=== PATIENT | male | born 1960 | race Caucasian/White ===

== ENCOUNTER 2025-01-20 09:41 | Outpatient (CLI) | payer MEDICARE, OTHER, SELFPAY ==
[2025-01-20 10:13] LABS: Hematocrit 41.3 % (37.0-46.0); Hemoglobin 13.5 g/dL (12.4-15.3); Immature Granulocyte Percent A 0.3 % (0.0-0.0); Lymphocytes Absolute Auto 1.67 K/mm3 (1.10-4.50); Mean Corpuscular HGB Conc 32.7 g/dL (32-36); Mean Corpuscular Hemoglobin 31.8 pg (27.0-31.0); Mean Corpuscular Volume 97.4 fL (78.0-102.0); Nucleated Red Blood Cells Absolute Auto 0.00 K/mm3 (0.00-0.00); Nucleated Red Blood Cells Perc 0.0 % (0-0.0); Platelet Count Result 221 K/mm3 (150-420); Red Blood Count 4.24 M/mm3 (4.70-6.10); White Blood Count 5.8 K/mm3 (4.8-10.8)
[2025-01-20 10:22] LABS: Alanine Aminotransferase 15 U/L (6-50); Albumin Level 4.3 g/dL (3.5-5.1); Alkaline Phosphatase 58 U/L (38-126); Anion Gap 10 mmol/L (4-12); Aspartate Amino Transferase 22 U/L (17-59); Bilirubin,Total 0.5 mg/dL (0.2-1.3); Blood Urea Nitrogen 27 mg/dL (9-20); Calcium 9.5 mg/dL (8.4-10.2); Carbon Dioxide 26 mmol/L (22-30); Chloride 102 mmol/L (98-107); Estimated Glomerular Filt Rate > 60; Glucose 167 mg/dL (65-110); Magnesium 2.0 mg/dL (1.6-2.3); Osmolality Calculated 295 mOsm/kg (285-295); Potassium 4.7 mmol/L (3.4-5.0); Sodium 138 mmol/L (137-145); Total Protein 6.9 g/dL (6.3-8.2)
[2025-01-20 10:24] VITALS: BP 129/79; PULSE 80; RESP 14; TEMP 36.8; O2SAT 98; BMI 22.6
[2025-01-20] MEDS: PEMBROLIZUMAB 200 MG in SODIUM CHLORIDE 0.9% IV 92 ML IVPB (10:45)
[2025-01-20] MEDS: HEPARIN SODIUM LOCK FLUSH 500 UNITS/5 ML SYRINGE IV PUSH (11:18)
[2025-01-20 11:34] VITALS: BP 134/78; PULSE 78; RESP 16; O2SAT 97
--- NOTE | 2025-01-20 11:35 | PC.NURSE ---
Tolerated pembrolizumab infusion well. SEE MAR and patient care notes.
== END 2025-01-20 09:42 | disposition home or self-care (01) ==
PROVIDERS: PCP Family Medicine; Visit Provider Internal Medicine Hematology & Oncology
DX: Z51.11 Encounter for antineoplastic chemotherapy (principal); C13.9 Malignant neoplasm of hypopharynx, unspecified; C32.3 Malignant neoplasm of laryngeal cartilage
CPT/HCPCS: 36415; 36591; 80053; 83735; 85025; 96413; J9271

== ENCOUNTER 2025-01-25 15:47 | Outpatient (CLI) | payer MEDICARE, OTHER, SELFPAY ==
[2025-01-25 16:11] LABS: Hematocrit 40.7 % (37.0-46.0); Hemoglobin 13.3 g/dL (12.4-15.3); Mean Corpuscular HGB Conc 32.7 g/dL (32-36); Mean Corpuscular Hemoglobin 32.1 pg (27.0-31.0); Mean Corpuscular Volume 98.3 fL (78.0-102.0); Platelet Count Result 221 K/mm3 (150-420); Red Blood Count 4.14 M/mm3 (4.70-6.10); White Blood Count 8.2 K/mm3 (4.8-10.8)
[2025-01-25 16:33] LABS: Alanine Aminotransferase 13 U/L (6-50); Albumin Level 4.1 g/dL (3.5-5.1); Alkaline Phosphatase 63 U/L (38-126); Anion Gap 7 mmol/L (4-12); Aspartate Amino Transferase 18 U/L (17-59); Bilirubin,Total 0.5 mg/dL (0.2-1.3); Blood Urea Nitrogen 30 mg/dL (9-20); Calcium 9.5 mg/dL (8.4-10.2); Carbon Dioxide 30 mmol/L (22-30); Chloride 102 mmol/L (98-107); Estimated Glomerular Filt Rate > 60; Glucose 258 mg/dL (65-110); Magnesium 2.1 mg/dL (1.6-2.3); Osmolality Calculated 303 mOsm/kg (285-295); Potassium 5.7 mmol/L (3.4-5.0); Sodium 139 mmol/L (137-145); Total Protein 7.1 g/dL (6.3-8.2)
--- OUTSIDE RECORDS SUMMARY | 2025-01-25 16:47 | XMS_ITS | Encounter Summary ---
Author Organization [facility] [place] Address [facility] [place] [address] Care Team Providers Care Gas Examiner Name Role Phone Trevin Hobbs MD Primary Care Provider [phone] Sumit Suárez MD Primary Care Provider Jessica Wong MD Unavailable Encounter Details Date Type Department Care Team (Late st Contact Info) Description 07/26/2017 Abstract [facility] CONVERSION [address] [place] [address] , Generic Conversion, Social History Tobacco Use Types Packs/Day Years Used Date Smoking Tobacco: Never Assessed Sex and Gender Information Value Date Recorded Sex Assigned at Male 11/16/2024 7:21 AM CDT Legal Sex Male 8:30 PM CDT Gender Identity Not on file Sexual Orientation Not on file documented as of this encounter Plan of Treatment Not on file documented as of this encounter Visit Diagnoses Not on filedocumented in this encounter Additional Health Concerns Infection Onset Date Last Indicated Resolved Time COVID-19 Rule Out 07/23/2021 07/23/2021 07/23/2021 10:52 PM CDT COVID-19 Confirmed 07/23/2021 07/23/2021 12:33 AM CDT documented as of this encounter Care Teams Gas Examiner Relationship Specialty Start Date End Date Trevin Hobbs MD [address] [place] [address] PCP - General FAMILY PRACTICE 02/27/19 04/08/21 Sumit Suárez MD [address] [place] [address] PCP - General FAMILY PRACTICE 04/09/21 Jessica Wong MD [address] [place] [address] Consulting Physician CARDIOVASCULAR DISEASE 12/01/24 documented as of this encounter
--- OUTSIDE RECORDS SUMMARY | 2025-01-25 16:47 | XMS_ITS | Encounter Summary ---
Author Organization [facility] Address [facility] [place] [address] Care Team Providers Care Measurer Machine Name Role Phone Trevin Hobbs MD Primary Care Provider [phone] Sumit Suárez MD Primary Care Provider Jessica Wong MD Unavailable Encounter Details Date Type Department Care Team (Late st Contact Info) Description 10/17/2018 Abstract [facility] CONVERSION [address] [place] [address] , Generic Conversion, Social History Tobacco Use [...] documented as of this encounter Care Teams Measurer Machine Relationship Specialty Start Date End Date Trevin Hobbs MD [address] [place] [address] PCP - General FAMILY PRACTICE 02/27/19 04/08/21 Sumit Suárez MD [address] [place] [address] PCP - General FAMILY PRACTICE 04/09/21 Jessica Wong MD [address] [place] [address] Consulting Physician CARDIOVASCULAR DISEASE 12/01/24 documented as of this encounter
--- OUTSIDE RECORDS SUMMARY | 2025-01-25 16:47 | XMS_ITS | Clinical Summary ---
Author Organization [facility] Address [address] [place] [address] Care Team Providers Care Golf Cart Attendant Name Role Phone Sumit Suárez MD Primary Care Provider Jessica Wong MD Unavailable Allergies Active Allergy Reactions Criticality Noted Date Comments Penicillins Hives 02/27/2019 Medications * This document contains information received from the source organization and may not represent a complete record from that organization. metFORMIN (GLUCOPHAGE) 500 MG tablet Take 2 tablets (1,000 mg total) by mouth 2 (two) times daily with meals. Active Insulin Syringe-Needle U-100 (INSULIN SYRINGE .3CC/29GX1/2) 29G X 1/2 0.3 ML Misc Use as directed 100 each 9 Active albuterol sulfate HFA 108 (90 Base) MCG/ACT inhaler Inhale 2 puffs into the lungs every 8 (eight) hours as needed for Wheezing or Shortness of breath. Active empagliflozin (JARDIANCE) 25 MG tablet Take 1 tablet (25 mg total) by mouth daily. Active omeprazole (PRILOSEC) 40 MG capsule Take 1 capsule (40 mg total) by mouth daily. Active famotidine (PEPCID) 40 MG tablet Take 1 tablet (40 mg total) by mouth daily. Active Active Problems Problem Noted Date Diagnosed Date Unintended weight loss 02/28/2019 Hyperglycemia due to type 2 diabetes mellitus ([facility]) 02/27/2019 CAP (community acquired pneumonia) 02/27/2019 COPD (chronic obstructive pu lmonary disease) ([facility]) 02/27/2019 Hyperlipemia 02/27/2019 Encounters Date Type Department Care Team Description 01/07/2025 11:28 AM CDT - 01/07/2025 11:59 PM CDT Hospital Encounter [facility] PET [address] [place] [address] Yaakov Frazier MD Discharge Disposition: Home or Self Care (Routine Discharge) 01/07/2025 Travel 12/03/2024 Telephone [facility] [address] [place] [address] Jessica Wong MD Question 12/02/2024 12:30 PM CDT Office Visit [facility] [address] Jessica Wong MD Heart Problem 12/02/2024 Scan [facility] [address] [place] [address] Scanned, Doc Pccl 12/01/2024 Travel 11/30/2024 Orders Only [facility] [address] [place] [address] Jessica Wong MD 11/24/2024 12:30 PM CDT - 11/24/2024 11:59 PM CDT Hospital Encounter [facility] [place] [address] [place] [address] Lg Sargent MD Discharge Disposition: Home or Self Care (Routine Discharge) 11/24/2024 12:23 PM CDT - 11/24/2024 12:29 PM CDT Hospital Encounter [facility] [address] [place] [address] Lg Sargent MD Discharge Disposition: Home or Self Care (Routine Discharge) 11/24/2024 Orders Only [facility] [address] [place] [address] Jessica Wong MD 11/24/2024 Travel 11/23/2024 8:12 AM CDT - 11/23/2024 11:59 PM CDT Hospital Encounter [facility] [address] [place] [address] Yaakov Frazier MD Discharge Disposition: Home or Self Care (Routine Discharge) 11/22/2024 1:30 PM CDT - 11/22/2024 11:59 PM CDT Hospital Encounter [address] [address] Lg Sargent MD Discharge Disposition: Home or Self Care (Routine Discharge) 11/22/2024 Travel 11/16/2024 7:25 AM CDT - 11/16/2024 11:59 PM CDT Hospital Encounter [facility] [address] [place] [address] Yaakov Frazier MD Discharge Disposition: Home or Self Care (Routine Discharge) 11/16/2024 Orders Only [facility] [address] [place] [address] Yaakov Frazier MD 11/16/2024 Travel 11/11/2024 10:45 AM CDT - 11/11/2024 11:59 PM CDT Hospital Encounter [address] [address] Lg Sargent MD Discharge Disposition: Home or Self Care (Routine Discharge) 11/11/2024 Travel 11/08/2024 Abstract [facility] [address] [place] [address] Abstract, Doc Pccl 11/02/2024 Telephone [facility] [address] [place] [address] Jessiac Wong MD Surgical Clearance 10/27/2024 Scan [facility] [address] [place] [address] Scanned, Doc Pccl 10/27/2024 Scan [facility] [address] [place] [address] Scanned, Doc Pccl ECG (SCAN) from Last 3 Months Family History Medical History Relation Comments Asthma Brother CHF Father COPD Father Diabetes Father Diabetes Mother Relation Status Comments Brother Father Mother Social History Tobacco Use Types Packs/Day Years Used Date Smoking Tobacco: Every Day Cigarettes Smokeless Tobacco: Never Tobacco Cessation:Ready to Q uit: Not Asked; Counseling Given: Not Answered Alcohol Use Standard Drinks/Week Comments No 0 (1 standard drink = 0.6 oz pur e alcohol) AUDIT-C Answer Date Recorded Frequency of Alcohol Consumption Never 02/27/2019 Average Number of Drinks Not on file 019 Frequency of Binge Drinking Not on file 02/09 Sex and Gender Information Value Date Recorded Sex Assigned at Male 11/16/2024 7:21 AM CDT Legal Sex Male 8:30 PM CDT Gender Identity Not on file Sexual Orientation Not on file Last Filed Vital Signs Vital Sign Reading Time Taken Comments Blood Pressure 112/60 12/02/2024 1:52 PM CDT Pulse 83 12/02/2024 1:52 PM CDT Temperature 36.6 C (97.9 F) 02/28/2019 5:15 AM CDT Respiratory Rate 16 12/02/2024 1:52 PM CDT Oxygen Saturation 96% 12/02/2024 1:52 PM CDT Inhaled Oxygen Concentration - - Weight 62.8 kg (138 lb 6.4 oz) 12/02/2024 1:52 P M CDT Height 165.1 cm (5' 5) 12/02/2024 1:52 PM CDT Body Mass Index 23.03 12/02/2024 1:52 PM CDT Plan of Treatment Health Maintenance Due Date Last Done Comments Colorectal Cancer Screening Colonoscopy (10 Years) 1958 Kidney Health Evaluation 1958 Lipid Panel 1958 COVID-19 Vaccine (#1) 1963 Diabetes: Retinopathy Eye Exam 1976 Hepatitis C 1976 DTaP, Tdap and Td Vaccines (1 - Tdap) 1977 Pneumococcal Vaccine: 50+ Years (1 of 2 - PCV) 1977 Zoster Vaccines (1 of 2) 1977 RSV Immunization or 60+ Years (1 - Risk 60-74 years 1-dose series) 2018 Annual Medicare Wellness Visit 2023 Hemoglobin A1C 02/16/2025 11/16/2024, 02/28/2019 AAA SCREENING Completed 01/07/2025, 05/13, 05/09/2021, Additional history exists Meningococcal B Vaccine Aged Out No l onger eligible based on patient's age to complete this topic Meningococcal Vaccine Aged Out No ashanti halima eligible based on patient's age to complete this topic RSV Immunizations Under 20 Months Aged Out No longer eligible based on patient's age to complete this topic Procedures Procedure Name Priority Date/Time Associated Diagnosis Comments PET EYE TO THIGH [id number] PATIENCE 01/07/2025 1:49 PM CDT 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) ELECTROCARDIOGRAM, TRACING Routine 12/02/2024 Essential (primary) hypertension CT RAD THRPY PLAN W CON Routine 11/24/2024 1:03 PM CDT Cancer of hypopharynx (CMS/HCC HHS/HCC) CT SOFT TISSUE NECK W CON PATIENCE 11/23/2024 8:31 AM CDT 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) CORTISOL, TOTAL Routine 11/16/2024 4:35 PM CDT 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) MAGNESIUM Routine 11/16/2024 7:42 AM CDT 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) Thyroid disorder screen COMPREHENSIVE METABOLIC PANEL Routine 11/16/2024 7:42 AM CDT 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) Thyroid disorder screen CBC W/DIFF AUTOMATED Routine 11/16/2024 7:42 AM CDT 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) Thyroid disorder screen TSH W/REFLEX Routine 11/16/2024 7:42 AM CDT 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) Thyroid disorder screen HEMOGLOBIN, GLYCOSYLATED Routine 11/16/2024 7:42 AM CDT 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 Moderate uptake at mass centered in the left arytenoid cartilage, in keeping with reported history of primary malignancy. 2. Single prominent left level 2 cervical lymph node with mild uptake, favored to represent a site of ipsilateral radha metastatic disease. 3. No evidence of distant FDG avid metastatic disease. Ordered By: YAAKOV FRAZIER Interpreted By: Zbigniew Ferrell MD, 01/07/2025 2:33 PM Narrative 01/07/2025 3:[address] PM [address]T [address] [address] EXAMINATION: FDG PET/CT HISTORY: Reason for examination (per EHR order): malignant neoplasm of arytenoid cartilage. 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 Initial staging. Initial treatment strategy. TECHNIQUE: The patient's fasting blood glucose was 229 mg/dL. Approximately 63 minutes after the uneventful intravenous administration of 12.2 mCi F-18 Fluorodeoxyglucose (FDG) at the right antecubital fossa, computed tomography (CT) was performed for attenuation correction and anatomic localization. CT is not of diagnostic quality and was performed from the skull base to mid-thigh. Positron emission tomography (PET) was then performed over the same range. Fusion of PET and CT images was also performed. COMPARISON: Outside DOTATATE PET/CT 10/11/2024. CT neck soft tissue 11/23/2024. FINDINGS: Head and Neck: Moderate uptake with SUVmax 8.0 corresponding to 2 cm mass centered in the left arytenoid cartilage. Mild uptake with SUVmax 4.2 at 1.5 cm left level 2 cervical lymph node (fused axial series 606 image 159). No other abnormal uptake in the visualized head or neck. Carotid calcifications. Lungs: No abnormal FDG uptake. Pulmonary emphysema. Pleura: No abnormal FDG uptake. Mediastinum: No abnormal FDG uptake. Calcifications of the thoracic aorta, coronary arteries, and aortic valve. Thoracic Lymph Nodes: No abnormal FDG uptake. Chest Wall and Breasts: No abnormal FDG uptake. Right-sided chest port catheter terminates at the superior cavoatrial junction. Liver: No abnormal FDG uptake. Biliary System: No abnormal FDG uptake. Pancreas: No abnormal FDG uptake. Spleen: No abnormal FDG uptake. Adrenal Glands: No abnormal FDG uptake. Kidneys: No abnormal FDG uptake. Bowel: No abnormal FDG uptake. Mesentery, Omentum, and Peritoneum: No abnormal FDG uptake. Pelvic Organs: No abnormal FDG uptake. Enlarged prostate gland. Abdominopelvic Lymph Nodes: No abnormal FDG uptake. Vasculature: No abnormal FDG uptake. Atherosclerotic calcifications. Remaining Bones and Soft Tissues: No abnormal FDG uptake. Procedure Note Zbigniew Ferrell MD - 01/07/[address] [address] EXAMINATION: FDG PET/CT HISTORY: Reason for examination (per EHR order): malignant neoplasm ofarytenoid cartilage. Additional clinical information obtained from the EHR: 64 years Male withmalignant neoplasm of the arytenoid cartilage. Initial staging. Initialtreatment strategy. TECHNIQUE: The patient's fasting blood glucose was 229 mg/dL.Approximately 63 minutes after the uneventful intravenous administrationof 12.2 mCi F-18 Fluorodeoxyglucose (FDG) at the right antecubital fossa,computed tomography (CT) was performed for attenuation correction andanatomic localization. CT is not of diagnostic quality and was performedfrom the skull base to mid-thigh. Positron emission tomography (PET) wasthen performed over the same range. Fusion of PET and CT images was alsoperformed. COMPARISON: Outside DOTATATE PET/CT 10/11/2024. CT neck soft tissue11/23/2024. FINDINGS: Head and Neck: Moderate uptake with SUVmax 8.0 corresponding to 2 cm mass centered in theleft arytenoid cartilage. Mild uptake with SUVmax 4.2 at 1.5 cm left level 2 cervical lymph node(fused axial series 606 image 159). No other abnormal uptake in the visualized head or neck. Carotid calcifications. Lungs: No abnormal FDG uptake. Pulmonary emphysema. Pleura: No abnormal FDG uptake. Mediastinum: No abnormal FDG uptake. Calcifications of the thoracic aorta,coronary arteries, and aortic valve. Thoracic Lymph Nodes: No abnormal FDG uptake. Chest Wall and Breasts: No abnormal FDG uptake. Right-sided chest portcatheter terminates at the superior cavoatrial junction. Liver: No abnormal FDG uptake. Biliary System: No abnormal FDG uptake. Pancreas: No abnormal FDG uptake. Spleen: No abnormal FDG uptake. Adrenal Glands: No abnormal FDG uptake. Kidneys: No abnormal FDG uptake. Bowel: No abnormal FDG uptake. Mesentery, Omentum, and Peritoneum: No abnormal FDG uptake. Pelvic Organs: No abnormal FDG uptake. Enlarged prostate gland. Abdominopelvic Lymph Nodes: No abnormal FDG uptake. Vasculature: No abnormal FDG uptake. Atherosclerotic calcifications. Remaining Bones and Soft Tissues: No abnormal FDG uptake. IMPRESSION: 1. Moderate uptake at mass centered in the left arytenoid cartilage, inkeeping with reported history of primary malignancy. 2. Single prominent left level 2 cervical lymph node with mild uptake,favored to represent a site of ipsilateral radha metastatic disease. 3. No evidence of distant FDG avid metastatic disease. Ordered By: YAAKOV FRAZIER Interpreted By: Zbigniew Ferrell MD, 01/07/2025 2:33 PM us Yaakov Frazier MD PET Final Result * [facility] - ELECTROCARDIOGRAM, TRACING (12/02/2024) Jessica Wong MD PROCEDURES-UNRESULTED Final Resu lt * CT RAD THRPY PLAN W CON (11/24/2024 1:03 PM CDT) Anatomical Region Laterality Modality Undefined Computed Tomogra phy 11/24/2024 1:52 PM CDT Impressions 11/24/2024 1:58 PM CDT IMPRESSION: Radiation therapy planning CT scan as described. Ordered By: LG SARGENT Interpreted By: Massimo Ellsworth MD, 11/24/2024 1:52 PM Narrative 11/24/2024 1:[address]T [address] [place] [address] Examination: Radiation therapy planning CT scan. Exam time: 1303 hours. Clinical history: Head and neck cancer. Comparison: CT of the neck, 11/23/2024; PET/CT scan ([facility]), 10/11/2024. Technique: Postcontrast axial scans from the mid chest through the vertex with fiducial markers in place. A dose lowering technique was used for this procedure, which may include, but is not limited to, dose reduction techniques, automated exposure control, the use of iterative reconstruction and ALARA/Image Gently techniques. Findings: Enhancing left-sided supraglottic mass is again evident reflecting the known malignancy (image 70/152 for example). Left level II lymphadenopathy is again evident as well (image 83/152 for example). No new lymphadenopathy is identified. There is no abnormal intracranial enhancement. Atherosclerotic calcification in the carotid distributions bilaterally is again evident. Calcific coronary artery disease is noted. The visualized lungs are clear. No suspicious bony lesion is identified. Procedure Note Massimo Ellsworth MD - 11/24/2024 [place] [id number] [facility] [place] [address] Examination: Radiation therapy planning CT scan. Exam time: 1303 hours. Clinical history: Head and neck cancer. Comparison: CT of the neck, 11/23/2024; PET/CT scan ([facility] 10/11/2024. Technique: Postcontrast axial scans from the mid chest through the vertexwith fiducial markers in place. A dose lowering technique was used forthis procedure, which may include, but is not limited to, dose reductiontechniques, automated exposure control, the use of iterativereconstruction and ALARA/Image Gently techniques. Findings: Enhancing left-sided supraglottic mass is again evidentreflecting the known malignancy (image 70/152 for example). Left level IIlymphadenopathy is again evident as well (image 83/152 for example). Nonew lymphadenopathy is identified. There is no abnormal intracranialenhancement. Atherosclerotic calcification in the carotid distributionsbilaterally is again evident. Calcific coronary artery disease is noted.The visualized lungs are clear. No suspicious bony lesion is identified. IMPRESSION: Radiation therapy planning CT scan as described. Ordered By: LG SARGENT Interpreted By: Massimo Ellsworth MD, 11/24/2024 1:52 PM us Lg Sargent MD CT Final Result * CT SOFT TISSUE NECK W CON (11/23/2024 8:31 AM CDT) Anatomical Region Laterality Modality Neck Computed Tomogra phy 11/23/2024 9:27 AM CDT Impressions 11/23/2024 9:42 AM CDT IMPRESSION: 1. 2 cm irregular enhancing lesion within the left supraglottic region, compatible with reported carcinoma. The lesion appears to extend into the left thyroid cartilage. No extension to the right of midline or into the infraglottic region. 2. Nonspecific 0.9 cm enhancing cystic lesion along the dorsal lateral wall of the oropharynx abutting the right palatine tonsil, unchanged compared to the prior PET CT of 10/11/2024, suspicious for a mucous retention cyst. 3. Enlarged cervical lymph node on the left at level 2, compatible with metastasis. No necrotic cervical lymph nodes or right-sided the lymphadenopathy. 4. Carotid and coronary artery calcification. Referred By: YAAKOV FRAZIER Interpreted By: Augusto Soto MD, 11/23/2024 9:27 AM Narrative 11/23/2024 9:[address] AM CDT [address] [place] [address] EXAMINATION:Neck CT with contrast 11/23/2024 INDICATION:Squamous cell carcinoma of hypopharynx TECHNIQUE: Axial CT images of the neck were acquired following administration of 90 mL Isovue-370 contrast intravenously. Sagittal coronal reformats were constructed. Radiation dose reduction techniques were used. COMPARISON: PET CT 10/29/2024 FINDINGS:Partially visualized intracranial contents are unremarkable. The orbits and globes are unremarkable. The paranasal sinuses and mastoid air cells are clear. No acute osseous abnormality. Moderate multilevel degenerative changes are noted throughout the cervical spine. The parotid and submandibular glands are unremarkable. The thyroid gland is unremarkable The oral cavity and tongue are unremarkable. There is a 0.9 cm cystic lesion within the dorsal right lumen of the oral pharynx along the superior margin the right palatine tonsil. The nasopharynx, oropharynx and hypopharynx are otherwise unremarkable. No prevertebral edema or retropharyngeal fluid collection. The vallecula epiglottis and piriform sinuses are unremarkable. There is a 2.0 x 2.0 x 2.0 cm irregular enhancing mucosal lesion within the left supraglottic region, unchanged compared to the prior PET/CT. The lesion appears to invade the left thyroid cartilage but does not extend superficial to the thyroid cartilage. No infraglottic extension appreciated. No extension to the right of midline. Calcified plaque noted near the carotid bifurcations and within the aortic arch. There is extensive calcified plaque also noted throughout the coronary arteries. The internal jugular veins are well-opacified. There is enlarged cervical lymph node on the left at the L2 measuring up to 1.2 cm in the short axis, unchanged. There is mild emphysema within the right upper lobe of the lung. Procedure Note Augusto Soto MD - 11/23/2024 [place] [address] [facility] [place] [address] EXAMINATION:Neck CT with contrast 11/23/2024 INDICATION:Squamous cell carcinoma of hypopharynx TECHNIQUE: Axial CT images of the neck were acquired followingadministration of 90 mL Isovue-370 contrast intravenously. Sagittalcoronal reformats were constructed. Radiation dose reduction techniqueswere used. COMPARISON: PET CT 10/29/2024 FINDINGS:Partially visualized intracranial contents are unremarkable. Theorbits and globes are unremarkable. The paranasal sinuses and mastoid aircells are clear. No acute osseous abnormality. Moderate multileveldegenerative changes are noted throughout the cervical spine. The parotid and submandibular glands are unremarkable. The thyroid glandis unremarkable The oral cavity and tongue are unremarkable. There is a 0.9 cm cysticlesion within the dorsal right lumen of the oral pharynx along thesuperior margin the right palatine tonsil. The nasopharynx, oropharynxand hypopharynx are otherwise unremarkable. No prevertebral edema orretropharyngeal fluid collection. The vallecula epiglottis and piriformsinuses are unremarkable. There is a 2.0 x 2.0 x 2.0 cm irregular enhancing mucosal lesion withinthe left supraglottic region, unchanged compared to the prior PET/CT. Thelesion appears to invade the left thyroid cartilage but does not extendsuperficial to the thyroid cartilage. No infraglottic extensionappreciated. No extension to the right of midline. Calcified plaque noted near the carotid bifurcations and within the aorticarch. There is extensive calcified plaque also noted throughout thecoronary arteries. The internal jugular veins are well-opacified. There is enlarged cervicallymph node on the left at the L2 measuring up to 1.2 cm in the short axis,unchanged. There is mild emphysema within the right upper lobe of thelung. IMPRESSION: 1. 2 cm irregular enhancing lesion within the left supraglottic region,compatible with reported carcinoma. The lesion appears to extend into theleft thyroid cartilage. No extension to the right of midline or into theinfraglottic region. 2. Nonspecific 0.9 cm enhancing cystic lesion along the dorsal lateralwall of the oropharynx abutting the right palatine tonsil, unchangedcompared to the prior PET CT of 10/11/2024, suspicious for a mucousretention cyst. 3. Enlarged cervical lymph node on the left at level 2, compatible withmetastasis. No necrotic cervical lymph nodes or right-sided thelymphadenopathy. 4. Carotid and coronary artery calcification. Referred By: YAAKOV FRAZIER Interpreted By: Augusto Soto MD, 11/23/2024 9:27 AM Yaakov Frazier MD CT Final Result * CORTISOL, TOTAL (11/16/2024 4:35 PM CDT) Only the most recent of2 resultswithin the time period is included. CORTISOL 7.9 mcg/dL 11/17/2024 12:18 AM CDT [facility] Comment: A.M. SPECIMENS: 5.3 TO 22.5 mcg/dL P.M. SPECIMENS: 3.4 TO 16.8 mcg/dL ASSAY PERFORMED BY CHEMILUMINESCENCE METHODOLOGY USING Blue Security[employer] XPT REAGENT. PATIENT RESULTS DETERMINED BY ASSAYS USING DIFFERENT MANUFACTURERS FOR METHODS MAY NOT BE COMPARABLE. 11/16/2024 4:35 PM CDT Yaakov Frazier MD LABORATORY Final Result Performing Organization Address City/[facility] Co de Phone Number [facility] [address] [place] [address], [phone] * TSH W/REFLEX (11/16/2024 7:42 AM CDT) TSH 2.280 0.358 - 3.740 uIU/ML 11/16/2024 8:23 AM CDT [facility] Comment: FREE T4 NOT INDICATED ASSAY PERFORMED BY CHEMILUMINESCENT IMMUNOASSAY METHODOLOGY USING [employer] DIMENSION REAGENT. PATIENT RESULTS DETERMINED BY ASSAYS FROM DIFFERENT MANUFACTURERS AND/OR BY DIFFERENT METHODS MAY NOT BE COMPARABLE. 11/16/2024 7:42 AM CDT Yaakov Frazier MD LABORATORY Final Result Performing Organization Address City/[facility]/ZIP Co de Phone Number [facility] [address] [place] [address], [place] [phone] * (ABNORMAL) HEMOGLOBIN, GLYCOSYLATED (11/16/2024 7:42 AM CDT) HGB A1C 9.0(H) <5.7 % 11/16/2024 1:28 PM CDT [facility] ESTIMATED AVG GLUCOSE 212(H) 74 - 114 MG/DL 11/16/2024 1:28 PM CDT [facility] 11/16/2024 7:42 AM CDT us Yaakov Frazier MD LABORATORY Final Result [facility] [address] [place] [address], [place] [phone] * (ABNORMAL) COMPREHENSIVE METABOLIC PANEL (11/16/2024 7:42 AM CDT) Only the most recent of2 resultswithin the time period is included. SODIUM S/P/B 137 136 - 145 MMOL/L 11/16/2024 8:23 AM CDT [facility] POTASSIUM S/P/B 5.1 3.5 - 5.1 MMOL/L 11/16/2024 8:23 AM CDT [facility] CHLORIDE S/P/B 101 98 - 107 MMOL/L 11/16/2024 8:23 AM CDT [facility] [facility] CO2 27.9 21.0 - 32.0 MMOL/L 11/16/2024 8:23 AM CDT [facility] GLUCOSE 224(H) 70 - 99 MG/DL 11/16/2024 8:23 AM CDT [facility] Comment: FASTING GLUCOSE 100 TO 125 MG/DL IS CONSISTENT WITH IMPAIRED FASTING GLUCOSE. FASTING GLUCOSE >125 MG/DL IS CONSISTENT WITH DIABETES. RANDOM GLUCOSE >200 MG/DL WITH HYPERGLYCEMIC SYMPTOMS IS CONSISTENT WITH DIABETES. PER ADA GUIDELINES BUN 30(H) 6 - 24 MG/DL 11/16/2024 8:23 AM CDT [facility] CREATININE S/P/B 0.95 0.70 - 1.30 MG/DL 11/16/2024 8:23 AM T [facility] CALCIUM S/P/B 9.0 8.4 - 10.5 MG/DL 11/16/2024 8:23 AM T [facility] BILIRUBIN TOTAL S/P/B 0.3 0.2 - 1.0 MG/DL 11/16/2024 8:23 AM T [facility] Comment: THIS ASSAY IS NOT RECOMMENDED FOR PATIENTS UNDERGOING TREATMENT WITH ELTROMBOPAG DUE TO THE POTENTIAL FOR FALSELY ELEVATED RESULTS. ALKALINE PHOSPHATASE S/P/B 74 45 - 115 U/L 11/16/2024 8:23 AM T [facility] AST 14(L) 15 - 37 U/L 11/16/2024 8:23 AM [facility] ALT 16 16 - 63 U/L 11/16/2024 8:23 AM T [facility] TOTAL PROTEIN S/P/B 7.2 6.4 - 8.2 G/DL 11/16/2024 8:23 AM [facility] ALBUMIN S/P/B 3.6 3.4 - 5.0 G/DL 11/16/2024 8:23 AM [facility] ANION GAP 8.1 5.0 - 15.0 MMOL/L 11/16/2024 8:23 AM [facility] OSMOLALITY (CALC) 297 MOSM/KG 025 8:23 AM [facility] Comment:REFERENCE RANGE NOT ESTABLISHED GFR ESTIMATE 88(L) >89 ML/MIN/1. 73 M2 11/16/2024 8:23 AM T [facility] GFR NOTES GFR REFERENCE S: 11/16/2024 8:23 AM [facility] Comment: THE ESTIMATED GFR IS CALCULATED USING THE 2020 CKD-EPI EQUATION. THE FOLLOWING CATEGORIES FOR GRADING RENAL FUNCTION ARE RECOMMENDED BY THE INTERNATIONAL SOCIETY OF NEPHROLOGY (KDIGO 2012 CLINICAL PRACTICE GUIDELINE). G1,NORMAL OR HIGH: >89 ml/min/1.73 m2 G2,MILDLY DECREASED: 60-89 ml/min/1.73 m2 G3A,MILDLY TO MODERATELY DECREASED: 45-59 ml/min/1.73 m2 G3B,MODERATELY TO SEVERELY DECREASED: 30-44 ml/min/1.73 m2 G4,SEVERELY DECREASED: 15-29 ml/min/1.73 m2 G5,KIDNEY FAILURE: <15 ml/min/1.73 m2 11/16/2024 7:42 AM CDT Yaakov Frazier MD LABORATORY Final Result [facility] [address] [employer] [place] [address], * (ABNORMAL) CBC W/DIFF AUTOMATED (11/16/2024 7:42 AM CDT) WBC 7.61 4.00 - 10.80 x10'3/uL 11/16/2024 7:52 AM CDT [facility] RBC 4.78 4.50 - 6.10 x10'6/uL 11/16/2024 7:52 AM CDT [facility] HGB 15.3 13.0 - 18.0 G/DL 11/16/2024 7:52 AM CDT [facility] HCT 45.4 37.0 - 52.0 % 11/16/2024 7:52 AM CDT [facility] MCV 95.0 78.0 - 100.0 FL 11/16/2024 7:52 AM CDT [facility] MCH 32.0(H) 27.0 - 31.0 PG 11/16/2024 7:52 AM CDT [facility] MCHC 33.7 33.0 - 36.0 G/DL 11/16/2024 7:52 AM CDT [facility] RDW 14.2 11.5 - 14.5 % 11/16/2024 7:52 AM CDT [facility] PLT 247 150 - 350 x10'3/uL 11/16/2024 7:52 AM CDT [facility] MPV 9.9 7.4 - 10.4 FL 11/16/2024 7:52 AM CDT [facility] CBC COMMENT NORMAL REFERENCE RANGE NOT ESTABLISHED FOR THE PROPORTIONAL LEUKOCYTE DIFFERENTIAL. 11/16/2024 7:52 AM CDT [facility] NEUTROPHILS % 61.7 % 11/16/2024 7:52 AM CDT [facility] LYMPHOCYTES % 22.6 % 11/16/2024 7:52 AM CDT [facility] MONOCYTES % 11.0 % 11/16/2024 7:52 AM CDT [facility] EOSINOPHILS % 1.8 % 11/16/2024 7:52 AM CDT [facility] BASOPHILS % 2.0 % 11/16/2024 7:52 AM CDT [facility] IMMATURE GRANS % 0.9 % 11/17/19 7:52 AM CDT [facility] NRBC % 0.0 % 11/16/2024 7:52 AM CDT [facility] ABS. NEUTROPHILS 4.69 1.60 - 8.30 x10'3/uL 11/16/2024 7:52 AM CDT [facility] ABS. LYMPHOCYTES 1.72 0.80 - 4.70 x10'3/uL 11/16/2024 7:52 AM CDT [facility] ABS. MONOCYTES 0.84 0.00 - 1.50 x10'3/uL 11/16/2024 7:52 AM CDT [facility] ABS. EOSINOPHILS 0.14 0.00 - 0.40 x10'3/uL 11/16/2024 7:52 AM CDT [facility] ABS. BASOPHILS 0.15 0.00 - 0.20 x10'3/uL 11/16/2024 7:52 AM CDT [facility] ABS. IMMATURE GRANULOCYTES 0.07(H) 0.00 - 0.03 x10'3/uL 11/16/2024 7:52 AM CDT [facility] ABS. NUCLEATED RBC'S 0.00 0.00 - 0.01 x10'3/uL 11/16/2024 7:52 AM CDT [facility] 11/16/2024 7:42 AM CDT Yaakov Frazier MD LABORATORY Final Result Performing Organization Address [facility] Co de Phone Number [facility] [place] [address], * MAGNESIUM (11/16/2024 7:42 AM CDT) MAGNESIUM 2.2 1.8 - 2.4 MG/DL 11/16/2024 8:23 AM CDT [facility] 11/16/2024 7:42 AM CDT Yaakov Frazier MD LABORATORY Final Result Performing Organization Address [facility] Co de Phone Number [facility] [address] [place] [address], * ECG (10/27/2024 12:00 AM CDT) 10/27/2024 us Doc Pccl Scanned SCANNING Final Result Performing Organization Address [facility] Co de Phone Number [facility] * CBC, MANUAL DIFF (10/27/2024) WBC 6.7 HGB 15 HCT 45.9 PLT 212 Narrative Resulting Agency Comment Received from pcp us Default History Genericprovider LABORATORY Final Result from Last 3 Months Insurance [place] [address] MEDICARE Advance Directives * Full Code (Latest Code Status on File) Date Activated Date Inactivated Comments 02/27/2019 4:44 PM 02/28/2019 1:51 PM Care Teams Golf Cart Attendant Relationship Specialty Start Date End Date Sumit Suárez MD [address] [place] [phone] PCP - General FAMILY PRACTICE 04/09/21 Jessica Wong MD [address] [place] [address] Consulting Physician CARDIOVASCULAR DISEASE 12/01/24
== END 2025-01-25 15:48 | disposition home or self-care (01) ==
LOC: CHSLAB 15:50
PROVIDERS: PCP Family Medicine; Visit Provider Internal Medicine Hematology
DX: C13.9 Malignant neoplasm of hypopharynx, unspecified (principal)
CPT/HCPCS: 36415; 80053; 83735; 85027

== ENCOUNTER 2025-01-27 12:09 | Outpatient (CLI) | payer MEDICARE, OTHER, SELFPAY ==
[2025-01-27 12:45] VITALS: BP 100/50; PULSE 72; RESP 14; TEMP 36.7; O2SAT 96; BMI 22.6
[2025-01-27] MEDS: [UNRECOGNIZED DRUG - OTHER] IVPB ×2 (12:45→15:15)
[2025-01-27] MEDS: MAGNESIUM SULFATE IVPB ×2 (12:45→15:15)
[2025-01-27] MEDS: POTASSIUM CHLORIDE IVPB ×2 (12:45→15:15)
[2025-01-27] MEDS: SODIUM CHLORIDE 0.9% IVPB (13:50)
[2025-01-27] MEDS: CISPLATIN IVPB (13:50)
[2025-01-27] MEDS: MANNITOL 20% 62.5 ML, SODIUM CHLORIDE 0.9% IV 100 ML 400 ML IVPB (14:50)
[2025-01-27] MEDS: HEPARIN SODIUM LOCK FLUSH 500 UNITS/5 ML SYRINGE IV PUSH (16:18)
[2025-01-27 16:29] VITALS: BP 129/71; PULSE 80; RESP 14; TEMP 37; O2SAT 97
--- NOTE | 2025-01-27 16:31 | PC.NURSE ---
Patient tolerated cycle 1 day 8 treatment well today. SEE MAR/patient care notes.
== END 2025-01-27 12:10 | disposition home or self-care (01) ==
PROVIDERS: PCP Family Medicine; Visit Provider Internal Medicine Hematology & Oncology
DX: Z51.11 Encounter for antineoplastic chemotherapy (principal); C13.9 Malignant neoplasm of hypopharynx, unspecified; C32.3 Malignant neoplasm of laryngeal cartilage
CPT/HCPCS: 96366; 96367; 96375; 96413; J3475; J3480; J7040; J9060

== ENCOUNTER 2025-02-01 08:16 | Outpatient (CLI) | payer MEDICARE, OTHER, SELFPAY ==
--- OUTSIDE RECORDS SUMMARY | 2025-01-31 15:30 | XMS_ITS | Encounter Summary ---
Author Organization [facility] Address [address] [place] [address] Care Team Providers Care Dobby Looms Pegger Name Role Phone Sumit Suárez MD Primary Care Provider [phone] Jessica Wong MD Unavailable Encounter Details Date Type Department Care Team (Late st Contact Info) Description 01/31/2025 3:30 PM CDT Hospital Encounter [facility] Radiation Oncology - [address] [address] Lg Sargent MD [address] [place] [address] Social History Tobacco Use Types Packs/Day Years Used Date Smoking Tobacco: Every Day Cigarettes Smokeless Tobacco: Never Alcohol Use Standard Drinks/Week Comments No 0 [...] on file documented as of this encounter Functional Status * RETIRED Are you deaf or do you have serious difficulty hearing Answer Date of Assessment Author Status No 02/27/2019 4:57 PM CDT Activ e * RETIRED Are you blind or do you have serious difficulty seeing, even when wearing glasses? Answer Date of Assessment Author Status No 02/27/2019 4:57 PM CDT Activ e * Do you have serious difficulty walking or climbing stairs? Answer Date of Assessment Author Status No 02/27/2019 4:57 PM CDT Saeed Petty RN Active * Do you have difficulty dressing or bathing? Answer Date of Assessment Author Status No 02/27/2019 4:57 PM CDT Saeed Petty RN Active * Because of a physical, mental, or emotional condition, do you have difficulty doing errands alone such as visiting a doctor's office or shopping? Answer Date of Assessment Author Status No 02/27/2019 4:57 PM CDT Saeed Petty RN Active documented as of this encounter Mental Status * Because of a physical, mental, or emotional condition, do you have serious difficulty concentrating, remembering, or making decisions? Answer Entry Date Author Status No 02/27/2019 4:57 PM CDT Saeed Petty RN Active documented in this encounter Plan of Treatment Not on file documented as of this encounter Visit Diagnoses Not on filedocumented in this encounter Care Teams Dobby Looms Pegger Relationship Specialty Start Date End Date Sumit Suárez MD [address] [place] [phone] PCP - General FAMILY PRACTICE 04/09/21 Jessica Wong MD [address] [place] [address] Consulting Physician CARDIOVASCULAR DISEASE 12/01/24 documented as of this encounter
--- NOTE | 2025-02-01 08:21 | ECHO_ITS ---
Patient Info Name: Augusto Burdick Age: 64 years : 1960 Gender: Male Ht: 65 in Wt: 135 lbs BSA: 1.68 m2 HR: 73 bpm BP: 200 / 84 mmHg Technical Quality: Good Exam Date: 02/01/2025 8:25 AM Patient Status: O Admit Date: 02/01/2025 Exam Type: CA echo doppler color flow Complete two-dimensional, color flow and Doppler transthoracic echocardiogram is performed. Police Matron: Holly Kerr Attending Provider: Khalida Aranda Summary 1. Complete two-dimensional, color flow and Doppler transthoracic echocardiogram is performed. 2. Left ventricular chamber dimension is normal. 3. Left ventricular systolic function is mildly reduced, estimated at 45-50. 4. The left ventricular diastolic function is grade I diastolic dysfunction. 5. E/e' 7 is not elevated. 6. Left atrial chamber dimension is mildly enlarged. 7. There is moderate aortic valve sclerosis. 8. There is trace aortic valve regurgitation. Left Ventricle E/e' 7 is not elevated. Left ventricular chamber dimension is normal. Left ventricular systolic function is mildly reduced, estimated at 45-50. The left ventricular diastolic function is grade I diastolic dysfunction. Right Ventricle Right ventricular chamber dimension is normal. Right ventricular systolic function is normal and with normal TAPSE 1.9 cm. Left Atria Left atrial chamber dimension is mildly enlarged. Right Atria Right atrial chamber dimension is normal. Aortic Valve The aortic valve is trileaflet. There is moderate aortic valve sclerosis. There is no aortic valve stenosis. There is trace aortic valve regurgitation. Pulmonic Valve There is no pulmonic regurgitation. Mitral Valve There is no mitral valve stenosis. There is no mitral valve regurgitation. Tricuspid Valve There is no tricuspid valve regurgitation. Pericardium/Pleural There is no pericardial effusion. Inferior Vena Cava Normal inferior vena cava with >50% collapse upon inspiration consistent with normal right atrial pressure, 5 mmHg. Aorta The aortic root size at the sinus of Valsalva is normal. Left Ventricular Outflow Tract Name Value Normal LVOT 2D LVOT Diameter 2.0 cm LVOT Doppler LVOT Peak Velocity 84 cm/s LVOT Peak Gradient 3 mmHg LVOT Mean Gradient 2 mmHg LVOT VTI 18 cm LVOT VTI/AV VTI Ratio 0.6 LVOT Stroke Volume 57 ml LVOT CO 4.2 l/min LVOT CI 2.5 l/min/m2 Pulmonic Valve Name Value Normal RVOT Doppler RVOT Peak Velocity 68 cm/s RVOT Peak Gradient 2 mmHg PV Doppler PV Peak Velocity 106 cm/s PV Peak Gradient 5 mmHg Mitral Valve Name Value Normal MV Diastolic Function MV E Peak Velocity 40 cm/s MV A Peak Velocity 101 cm/s MV E/A 0.4 MV Decel Time (PW) 401 ms MV Annular TDI MV E/e' (Septal) 8.8 MV E/e' (Lateral) 6.8 MV E/e' (Average) 7.8 Tricuspid Valve Name Value Normal Estimated PAP/RSVP RA Pressure 5 mmHg <=5 Aortic Valve Name Value Normal AV Doppler AV Peak Velocity 137 cm/s AV Peak Gradient 7 mmHg AV Mean Gradient 4 mmHg AV VTI 31 cm AV Area (Cont Eq VTI) 1.8 cm2 >=3.0 AV Area (Cont Eq Tucker) 1.9 cm2 AV DI (Tucker) 0.61 AV Regurgitation 2D LVOT Area 3.2 cm2 Ventricles Name Value Normal LV Dimensions 2D/MM IVS Diastolic Thickness (2D) 1.0 cm 0.6-1.0 LVID Diastole (2D) 4.8 cm 4.2-5.8 LVIW Diastolic Thickness (2D) 1.2 cm 0.6-1.0 LVID Systole (2D) 4.0 cm 2.5-4.0 LVOT Diameter 2.0 cm LV Mass (2D Cubed) 204.77 g 88.00-224.00 LV Mass Index (2D Cubed) 122 g/m2 49-115 Relative Wall Thickness (2D) 0.52 <=0.42 LV Fractional Shortening/Ejection Fraction 2D/MM LV Fractional Shortening (2D) 17 % 25-43 LV EF (2D Teichholz) 36 % LV Diastolic Volume (4C MOD) 119 ml LV EF (4C MOD) 43 % LV Diastolic Volume (2C MOD) 113 ml LV EF (2C MOD) 45 % LV Diastolic Volume (BP MOD) 120 ml 62-150 LV Diastolic Volume Index (BP MOD) 71 ml/m2 34-74 LV Systolic Volume (BP MOD) 66 ml 21-61 LV Systolic Volume Index (BP MOD) 39 ml/m2 11-31 LV EF (BP MOD) 45 % 52-72 LV Diastolic Length (4C) 8.7 cm LV Systolic Length (4C) 7.8 cm LV Stroke Volume (4C MOD) 51 ml Atria Name Value Normal LA Dimensions LA Volume (4C A-L) 37 ml LA Volume (BP A-L) 50 ml RA Dimensions RA Systolic Major [place] Length (4C) 5.1 cm 2.1-2.7 RA Area (4C) 16.6 cm2 <=18.0 Report Signatures
--- OUTSIDE RECORDS SUMMARY | 2025-02-01 08:35 | XMS_ITS | Encounter Summary ---
Author Organization [facility] Address [facility] [place] [address] Care Team Providers Care Hospital Medical Biller Name Role Phone Trevin Hobbs MD Primary Care Provider [phone] Sumit Suárez MD Primary Care Provider Jessica Wong MD Unavailable Encounter Details Date Type Department Care Team (Late st Contact Info) Description 07/26/2017 Abstract [facility] CONVERSION [address] [place] [address] , Generic Conversion, Social History Tobacco Use [...] documented as of this encounter Care Teams Hospital Medical Biller Relationship Specialty Start Date End Date Trevin Hobbs MD [address] [place] [phone] PCP - General FAMILY PRACTICE 02/27/19 04/08/21 Sumit Suárez MD [address] [place] [phone] PCP - General FAMILY PRACTICE 04/09/21 Jessica Wong MD [address] [place] [address] Consulting Physician CARDIOVASCULAR DISEASE 12/01/24 documented as of this encounter
--- OUTSIDE RECORDS SUMMARY | 2025-02-01 08:35 | XMS_ITS | Clinical Summary ---
Author Organization [facility] Address [address] [place] [address] Care Team Providers Care Ui Architect Name Role Phone Sumit Suárez MD Primary [...] Hyperglycemia due to type 2 diabetes mellitus ([facility]) 02/27/2019 CAP (community acquired pneumonia) 02/27/2019 COPD (chronic obstructive pu lmonary disease) ([facility]) 02/27/2019 Hyperlipemia 02/27/2019 Encounters Date Type Department Care Team Description 01/31/2025 3:30 PM CDT Hospital Encounter [address] [address] Lg Sargent MD 01/31/2025 Travel 01/28/2025 3:30 PM CDT - 01/28/2025 11:59 PM CDT Hospital Encounter [address] [address] Lg Sargent MD Discharge Disposition: Home or Self Care (Routine Discharge) 01/28/2025 Travel 01/27/2025 10:30 AM CDT - 01/27/2025 11:59 PM CDT Hospital Encounter [address] [address] Lg Sargent MD Discharge Disposition: Home or Self Care (Routine Discharge) 01/27/2025 10:10 AM CDT - 01/27/2025 10:29 AM CDT Hospital Encounter [address] [address] Lg Sargent MD Discharge Disposition: Home or Self Care (Routine Discharge) 01/26/2025 3:30 PM CDT - 01/26/2025 11:59 PM CDT Hospital Encounter [address] [address] Lg Sargent MD Discharge Disposition: Home or Self Care (Routine Discharge) 01/26/2025 Travel 01/07/2025 11:28 AM CDT - 01/07/2025 11:59 PM CDT Hospital Encounter [facility] PET [address] [place] [address] Yaakov Frazier MD Discharge Disposition: Home or Self Care (Routine Discharge) 01/07/2025 Travel 12/03/2024 [facility] [address] [place] [address] Jessica Wong MD Question 12/02/2024 12:30 PM CDT Office Visit [facility] [address] Jessica Wong MD Heart Problem 12/02/2024 Scan [facility] [address] [place] [address] Scanned, Doc Pccl 12/01/2024 Travel 11/30/2024 Orders Only [facility] [address] [place] [address] Jessica Wong MD 11/24/2024 12:30 PM CDT - 11/24/2024 11:59 PM CDT Hospital Encounter [address] [address] Lg Sargent MD Discharge Disposition: Home or Self Care (Routine Discharge) 11/24/2024 12:23 PM CDT - 11/24/2024 12:29 PM CDT Hospital Encounter [facility] [address] [place] [address] Lg Sargent MD Discharge Disposition: Home or Self Care (Routine Discharge) 11/24/2024 Orders Only [facility] [address] [place] [address] Jessica Wong MD 11/24/2024 Travel 11/23/2024 8:12 AM CDT - 11/23/2024 11:59 PM CDT Hospital Encounter [facility] [address] [place] [address] Yaakov Frazier MD Discharge Disposition: Home or Self Care (Routine Discharge) 11/22/2024 1:30 PM CDT - 11/22/2024 11:59 PM CDT Hospital Encounter [address] [address] Lg Sargent MD Discharge Disposition: Home or Self Care (Routine Discharge) 11/22/2024 Travel 11/16/2024 7:25 AM CDT - 11/16/2024 11:59 PM CDT Hospital Encounter [place] [address] [place] [address] Yaakov Frazier MD Discharge Disposition: Home or Self Care (Routine Discharge) 11/16/2024 Orders Only [place] [address] [address] Yaakov Frazier MD 11/16/2024 Travel 11/11/2024 10:45 AM CDT - 11/11/2024 11:59 PM CDT Hospital Encounter [facility] Radiation Oncology - [address] [address] Lg Sargent MD Discharge Disposition: Home or Self Care (Routine Discharge) 11/11/2024 Travel 11/08/2024 Abstract [employer] [facility] [address] [place] [address] Abstract, Doc Pccl 11/02/2024 Telephone [employer] [facility] [address] [place] [address] Jessica Wong MD Surgical Clearance from Last 3 Months Family History Medical [...] Associated Diagnosis Comments PET EYE TO THIGH [id number] PATIENCE 01/07/2025 1:49 PM CDT Malignant neoplasm [...] of hypopharynx (CMS/HCC HHS/HCC) Thyroid disorder screen from Last 3 Months Results * PET EYE TO THIGH [id number] (01/07/2025 1:49 PM CDT) Anatomical Region Laterality [...] 2:33 PM Narrative 01/07/2025 3:[address]T [address] [address] EXAMINATION: FDG PET/CT HISTORY: Reason for examination [...] Procedure Note Zbigniew Ferrell MD - 01/07/2025 [facility] [address] [place], [place] [address] EXAMINATION: FDG PET/CT HISTORY: Reason for examination [...] By: Zbigniew Ferrell MD, 01/07/2025 2:33 PM Yaakov Frazier MD PET Final Result * NOT [facility] - ELECTROCARDIOGRAM, TRACING (12/02/2024) Jessica Wong MD [...] 1:52 PM Narrative 11/24/2024 1:58 PM [address]T [address] [place] [address] Examination: Radiation therapy planning CT scan. Exam time: 1303 hours. Clinical history: Head and neck cancer. Comparison: CT of the neck, 11/23/2024; PET/CT scan ([facility]), 10/11/2024. Technique: Postcontrast axial scans from the [...] Procedure Note Massimo Ellsworth MD - 11/24/[address] [place] [address] Examination: Radiation therapy planning CT scan. Exam time: 1303 hours. Clinical history: Head and neck cancer. Comparison: CT of the neck, 11/23/2024; PET/CT scan ([facility]), 10/11/2024. Technique: Postcontrast axial scans from the [...] 9:27 AM Narrative 11/23/2024 9:42 AM CDT [address] [place] [address] EXAMINATION:Neck CT with contrast 11/23/2024 INDICATION:Squamous cell [...] Procedure Note Augusto Soto MD - 11/23/[address] [place] [address] EXAMINATION:Neck CT with contrast 11/23/2024 INDICATION:Squamous cell [...] By: Augusto Soto MD, 11/23/2024 9:27 AM us Yaakov Frazier MD CT Final Result * CORTISOL, TOTAL (11/16/2024 4:35 PM CDT) Only the most recent of2 resultswithin the time period is included. CORTISOL 7.9 mcg/dL 11/17/2024 12:18 AM CDT [facility] Comment: A.M. SPECIMENS: 5.3 TO 22.5 mcg/dL P.M. SPECIMENS: 3.4 TO 16.8 mcg/dL ASSAY PERFORMED BY CHEMILUMINESCENCE METHODOLOGY USING SIEMENS CENTAUR XPT REAGENT. PATIENT RESULTS DETERMINED BY ASSAYS USING DIFFERENT MANUFACTURERS FOR METHODS MAY NOT BE COMPARABLE. 11/16/2024 4:35 PM CDT us Yaakov Frazier MD LABORATORY Final Result Performing Organization Address City/[facility]/ZIP Co de Phone Number [facility] [address] [place] [address], [place] [phone] * TSH W/REFLEX (11/16/2024 7:42 AM CDT) TSH 2.280 0.358 - 3.740 uIU/ML 11/16/2024 8:23 AM CDT [facility] Comment: FREE T4 NOT INDICATED ASSAY PERFORMED BY CHEMILUMINESCENT IMMUNOASSAY METHODOLOGY USING SIEMENS DIMENSION REAGENT. PATIENT RESULTS DETERMINED BY ASSAYS FROM DIFFERENT MANUFACTURERS AND/OR BY DIFFERENT METHODS MAY NOT BE COMPARABLE. 11/16/2024 7:42 AM CDT Yaakvo Frazier MD LABORATORY Final Result Performing Organization Address [facility] Co de Phone Number [facility] [place] [address], * (ABNORMAL) HEMOGLOBIN, GLYCOSYLATED (11/16/2024 7:42 AM CDT) HGB A1C 9.0(H) <5.7 % 11/16/2024 1:28 PM CDT [facility] ESTIMATED AVG GLUCOSE 212(H) 74 - 114 MG/DL 11/16/2024 1:28 PM CDT [facility] 11/16/2024 7:42 AM CDT Yaakov Frazier MD LABORATORY Final Result Performing Organization Address [facility] Co de Phone Number [facility] [address] [place] [address], [place] [phone] * (ABNORMAL) COMPREHENSIVE METABOLIC PANEL (11/16/2024 7:42 AM CDT) SODIUM S/P/B 137 136 - 145 MMOL/L 11/16/2024 8:23 AM CDT [facility] POTASSIUM S/P/B 5.1 3.5 - 5.1 MMOL/L 11/16/2024 8:23 AM T [facility] CHLORIDE S/P/B 101 98 - 107 MMOL/L 11/16/2024 8:23 AM [facility] CO2 27.9 21.0 - 32.0 MMOL/L 11/16/2024 8:23 AM [facility] GLUCOSE 224(H) 70 - 99 MG/DL 11/16/2024 8:23 AM [facility] Comment: FASTING GLUCOSE 100 TO 125 MG/DL IS CONSISTENT WITH IMPAIRED FASTING GLUCOSE. FASTING GLUCOSE >125 MG/DL IS CONSISTENT WITH DIABETES. RANDOM GLUCOSE >200 MG/DL WITH HYPERGLYCEMIC SYMPTOMS IS CONSISTENT WITH DIABETES. PER ADA GUIDELINES BUN 30(H) 6 - 24 MG/DL 11/16/2024 8:23 AM [facility] CREATININE S/P/B 0.95 0.70 - 1.30 MG/DL 11/16/2024 8:23 AM [facility] CALCIUM S/P/B 9.0 8.4 - 10.5 MG/DL 11/16/2024 8:23 AM [facility] BILIRUBIN TOTAL S/P/B 0.3 0.2 - 1.0 MG/DL 11/16/2024 8:23 AM [facility] Comment: THIS ASSAY IS NOT RECOMMENDED FOR PATIENTS UNDERGOING TREATMENT WITH ELTROMBOPAG DUE TO THE POTENTIAL FOR FALSELY ELEVATED RESULTS. ALKALINE PHOSPHATASE S/P/B 74 45 - 115 U/L 11/16/2024 8:23 AM [facility] AST 14(L) 15 - 37 U/L 11/16/2024 8:23 AM [facility] ALT 16 16 - 63 U/L 11/16/2024 8:23 AM [facility] TOTAL PROTEIN S/P/B 7.2 6.4 - 8.2 G/DL 11/16/2024 8:23 AM [facility] ALBUMIN S/P/B 3.6 3.4 - 5.0 G/DL 11/16/2024 8:23 AM CDT [facility] ANION GAP 8.1 5.0 - 15.0 MMOL/L 11/16/2024 8:23 AM CDT [facility] OSMOLALITY (CALC) 297 MOSM/KG 025 8:23 AM CDT [facility] Comment:REFERENCE RANGE NOT ESTABLISHED GFR ESTIMATE 88(L) >89 ML/MIN/1. 73 M2 11/16/2024 8:23 AM CDT [facility] GFR NOTES GFR REFERENCE S: 11/16/2024 8:23 AM CDT [facility] Comment: THE ESTIMATED GFR IS [...] CDT Yaakov Frazier MD LABORATORY Final Result [facility] [place] [address], * (ABNORMAL) CBC W/DIFF AUTOMATED (11/16/2024 7:42 AM CDT) WBC 7.61 4.00 - 10.80 x10'3/uL 11/16/2024 7:52 AM CDT [facility] RBC 4.78 4.50 - 6.10 x10'6/uL 11/16/2024 7:52 AM CDT [facility] HGB 15.3 13.0 - 18.0 G/DL 11/16/2024 7:52 AM CDT [facility] HCT 45.4 37.0 - 52.0 % 11/16/2024 7:52 AM CDT [facility] MCV 95.0 78.0 - 100.0 FL 11/16/2024 7:52 AM CDT [facility] MCH 32.0(H) 27.0 - 31.0 PG 11/16/2024 7:52 AM CDT [facility] MCHC 33.7 33.0 - 36.0 G/DL 11/16/2024 7:52 AM CDT [facility] RDW 14.2 11.5 - 14.5 % 11/16/2024 7:52 AM CDT [facility] PLT 247 150 - 350 x10'3/uL 11/16/2024 7:52 AM CDT [facility] MPV 9.9 7.4 - 10.4 FL 11/16/2024 7:52 AM CDT [facility] CBC COMMENT NORMAL REFERENCE RANGE NOT ESTABLISHED FOR THE PROPORTIONAL LEUKOCYTE DIFFERENTIAL. 11/16/2024 7:52 AM CDT [facility] NEUTROPHILS % 61.7 % 11/16/2024 7:52 AM CDT [facility] LYMPHOCYTES % 22.6 % 11/16/2024 7:52 AM CDT [facility] MONOCYTES % 11.0 % 11/16/2024 7:52 AM CDT [facility] EOSINOPHILS % 1.8 % 11/16/2024 7:52 AM CDT [facility] BASOPHILS % 2.0 % 11/16/2024 7:52 AM CDT [facility] IMMATURE GRANS % 0.9 % 11/17/19 7:52 AM CDT [facility] NRBC % 0.0 % 11/16/2024 7:52 AM CDT [facility] ABS. NEUTROPHILS 4.69 1.60 - 8.30 x10'3/uL 11/16/2024 7:52 AM CDT [facility] ABS. LYMPHOCYTES 1.72 0.80 - 4.70 x10'3/uL 11/16/2024 7:52 AM CDT [facility] ABS. MONOCYTES 0.84 0.00 - 1.50 x10'3/uL 11/16/2024 7:52 AM CDT [facility] ABS. EOSINOPHILS 0.14 0.00 - 0.40 x10'3/uL 11/16/2024 7:52 AM CDT [facility] ABS. BASOPHILS 0.15 0.00 - 0.20 x10'3/uL 11/16/2024 7:52 AM CDT [facility] ABS. IMMATURE GRANULOCYTES 0.07(H) 0.00 - 0.03 x10'3/uL 11/16/2024 7:52 AM CDT [facility] ABS. NUCLEATED RBC'S 0.00 0.00 - 0.01 x10'3/uL 11/16/2024 7:52 AM CDT [facility] 11/16/2024 7:42 AM CDT us Yaakov Frazier MD [place] [address], * MAGNESIUM (11/16/2024 7:42 AM CDT) MAGNESIUM 2.2 1.8 - 2.4 MG/DL 11/16/2024 8:23 AM CDT [facility] 11/16/2024 7:42 AM CDT us Yaakov Frazier MD LABORATORY Final Result Performing Organization Address City/[facility]/ZIP Co de Phone Number [facility] [address] [place] [address], [place] [phone] from Last 3 Months Insurance [employer] [facility] Advance Directives * Full Code (Latest Code Status on File) Date Activated Date Inactivated Comments 02/27/2019 4:44 PM 02/28/2019 1:51 PM Care Teams Ui Architect Relationship Specialty Start Date End Date Sumit Suárez MD [address] [place] [address] PCP - General FAMILY PRACTICE 04/09/21 Jessica Wong MD [address] [place] [address] Consulting Physician CARDIOVASCULAR DISEASE 12/01/24
--- OUTSIDE RECORDS SUMMARY | 2025-02-01 08:35 | XMS_ITS | Encounter Summary ---
Author Organization [facility] Address [facility] [place] [address] Care Team Providers Care Sharepoint Trainer Name Role Phone Sumit Suárez MD Primary Care Provider [phone] Jessica Wong MD Unavailable Encounter Details Date Type Department Care Team (Latest Contact Info) Description 01/31/2025 Travel Social History Tobacco Use Types Packs/Day Years [...] Assessment Author Status No 02/27/2019 4:57 PM KATHYT Saeed Petty RN Active documented as of this encounter Mental Status * Because of a physical, mental, or emotional condition, do you have serious difficulty concentrating, remembering, or making decisions? Answer Entry Date Author Status No 02/27/2019 4:57 PM KATHYT Saeed Petty RN Active documented in this encounter Plan of Treatment Not on file documented as of this encounter Visit Diagnoses Not on filedocumented in this encounter Care Teams Sharepoint Trainer Relationship Specialty Start Date End Date Sumit Suárez MD [address] [place] [phone] PCP - General FAMILY PRACTICE 04/09/21 Jessica Wong MD [address] [place] [address] Consulting Physician CARDIOVASCULAR DISEASE 12/01/24 documented as of this encounter
--- OUTSIDE RECORDS SUMMARY | 2025-02-01 08:35 | XMS_ITS | Encounter Summary ---
Author Organization [facility] Address [facility] [place] [address] Care Team Providers Care Game Artist Name Role Phone Trevin Hobbs MD Primary Care Provider [phone] Sumit Suárez MD Primary Care Provider Jessica Wong MD Unavailable Encounter Details Date Type Department Care Team (Late st Contact Info) Description 10/17/2018 Abstract [facility] [address] [place] [address] , Generic Conversion, Social History Tobacco Use [...] documented as of this encounter Care Teams Game Artist Relationship Specialty Start Date End Date Trevin Hobbs MD [address] [place] [address] PCP - General FAMILY PRACTICE 02/27/19 04/08/21 Sumit Suárez MD [address] [place] [address] PCP - General FAMILY PRACTICE 04/09/21 Jessica Wong MD [address] [place] [address] Consulting Physician CARDIOVASCULAR DISEASE 12/01/24 documented as of this encounter
== END 2025-02-01 08:17 | disposition home or self-care (01) ==
PROVIDERS: PCP Family Medicine; Visit Provider Internal Medicine Hematology
DX: Z51.81 Encounter for therapeutic drug level monitoring (principal); I35.8 Other nonrheumatic aortic valve disorders; I50.30 Unspecified diastolic (congestive) heart failure
CPT/HCPCS: 93306

== ENCOUNTER 2025-02-10 12:07 | Outpatient (CLI) | payer MEDICARE, OTHER, SELFPAY ==
--- OUTSIDE RECORDS SUMMARY | 2025-02-08 11:26 | XMS_ITS | Encounter Summary ---
Author Organization [facility] Address [facility] [place] [address] Care Team Providers Care Countersinker Balance Screw Hole Name Role Phone Sumit Suárez MD Primary Care Provider [phone] Jessica Wong MD Unavailable Encounter Details Date Type Department Care Team (Latest Contact Info) Description 02/08/2025 11:26 AM CDT - 02/08/2025 11:59 PM CDT Hospital Encounter [facility] Radiation Oncology - [address] [address] Lg Sargent MD [address] [place] [address] Discharge Disposition: Home or Self Care (Routine Discharge) Social History Tobacco Use Types Packs/Day Years [...] Petty RN Active documented in this encounter Medications at Time of Discharge albuterol sulfate HFA 108 (90 Base) MCG/ACT inhaler Inhale 2 puffs into the lungs every 8 (eight) hours as needed for Wheezing or Shortness of breath. empagliflozin (JARDIANCE) 25 MG tablet Take 1 tablet (25 mg total) by mouth daily. famotidine (PEPCID) 40 MG tablet Take 1 tablet (40 mg total) by mouth daily. Insulin Syringe-Needle U-100 (INSULIN SYRINGE .3CC/29GX1/2) 29G X 1/2 0.3 ML Misc Use as directed 100 each 02/28/2019 metFORMIN (GLUCOPHAGE) 500 MG tablet Take 2 tablets (1,000 mg total) by mouth 2 (two) times daily with meals. omeprazole (PRILOSEC) 40 MG capsule Take 1 capsule (40 mg total) by mouth daily. documented as of this encounter Plan of Treatment Upcoming Encounters Date Type Department Care Team (Late st Contact Info) Description 02/10/2025 3:30 PM CDT Appointment [facility] Radiation Oncology - [address] [address] Lg Sargent MD [address] [place] [address] 02/10/2025 4:15 PM CDT Appointment [facility] Radiation Oncology - [place] [address] [place] [address] Lg Sargent MD [address] [place] [address] 08/11/2025 9:45 AM CDT Office Visit [facility] [address] [place] [phone] Jessica Wong MD [address] [place] [address] documented as of this encounter Visit Diagnoses Not on filedocumented in this encounter Care Teams Countersinker Balance Screw Hole Relationship Specialty Start Date End Date Sumit Suárez MD [address] [place] [phone] PCP - General FAMILY PRACTICE 04/09/21 Jessica Wong MD [address] [place] [address] Consulting Physician CARDIOVASCULAR DISEASE 12/01/24 documented as of this encounter
--- OUTSIDE RECORDS SUMMARY | 2025-02-09 15:23 | XMS_ITS | Encounter Summary ---
Author Organization [facility] Address [facility] [place] [address] Care Team Providers Care Donor Relations Coordinator Name Role Phone Sumit Suárez MD Primary Care Provider [phone] Jessica Wong MD Unavailable Encounter Details Date Type Department Care Team (Late st Contact Info) Description 02/09/2025 3:23 PM CDT Hospital Encounter [facility] Radiation Oncology - [place] [address] [place] [address] Lg Sargent MD [address] [place] [address] Arrived Social History Tobacco Use Types Packs/Day Years [...] documented in this encounter Plan of Treatment Upcoming Encounters Date Type Department Care Team (Late st Contact Info) Description 02/10/2025 3:30 PM CDT Appointment [facility] Radiation Oncology - [address] [address] Lg Sargent MD [address] [place] [address] 02/10/2025 4:15 PM CDT Appointment [facility] Radiation Oncology - [place] [address] [place] [address] Lg Sargent MD [address] [place] [address] 08/11/2025 9:45 AM CDT Office Visit [facility] [address] [phone] Jessica Wong MD [address] [place] [address] documented as of this encounter Visit Diagnoses Not on filedocumented in this encounter Care Teams Donor Relations Coordinator Relationship Specialty Start Date End Date Sumit Suárez MD [address] [place] [address] PCP - General FAMILY PRACTICE 04/09/21 Jessica Wong MD [address] [place] [address] Consulting Physician CARDIOVASCULAR DISEASE 12/01/24 documented as of this encounter
--- OUTSIDE RECORDS SUMMARY | 2025-02-10 12:11 | XMS_ITS | Encounter Summary ---
Author Organization [facility] Address [facility] [place] [address] Care Team Providers Care Note Taker Name Role Phone Trevin Hobbs MD Primary Care Provider [phone] Sumit Suárez MD Primary Care Provider [phone] Jessica Wong MD Unavailable Encounter Details Date Type Department Care Team (Late Contact Info) Description 10/17/2018 Abstract [facility] CONVERSION [address] [place] [address] , Generic Conversion, Social History Tobacco Use Types Packs/Day Years Used Date Smoking Tobacco: Never Assessed Sex and Gender Information Value Date Recorded Sex Assigned at Male 11/16/2024 7:21 AM CDT Legal Sex Male 8:30 PM CDT Gender Identity Not on file Sexual Orientation Not on file documented as of this encounter Plan of Treatment Upcoming Encounters Date Type Department Care Team (Late Contact Info) Description 02/10/2025 3:30 PM CDT Appointment [facility] Radiation Oncology [address] [address] Lg Sargent MD [address] [place] [address] 02/10/2025 4:15 PM CDT Appointment [facility] Radiation [facility] [address] [place] [address] Lg Sargent MD [address] [place] [address] 08/11/2025 9:45 AM CDT Office Visit [facility] [place] [address] [place] [phone] Jessica Wong MD [address] [place] [address] documented as of this encounter Visit Diagnoses Not on filedocumented in this encounter Additional Health Concerns Infection Onset Date Last Indicated Resolved Time COVID-19 Rule Out 07/23/2021 07/23/2021 07/23/2021 10:52 PM CDT COVID-19 Confirmed 07/23/2021 07/23/2021 12:33 AM CDT documented as of this encounter Care Teams Note Taker Relationship Specialty Start Date End Date Trevin Hobbs MD [address] [place] [phone] PCP - General FAMILY PRACTICE 02/27/19 04/08/21 Sumit Suárez MD [address] [place] [phone] PCP - General FAMILY PRACTICE 04/09/21 Jessica Wong MD [address] [place] [address] Consulting Physician CARDIOVASCULAR DISEASE 12/01/24 documented as of this encounter
--- OUTSIDE RECORDS SUMMARY | 2025-02-10 12:11 | XMS_ITS | Encounter Summary ---
Author Organization [facility] Address [facility] [place] [address] Care Team Providers Care Tower Air Traffic Control Specialist Name Role Phone Trevin Hobbs MD Primary Care Provider [phone] Sumit Suárez MD Primary Care Provider [phone] Jessica Wong MD Unavailable Encounter Details Date Type Department Care Team (Late st Contact Info) Description 07/26/2017 Abstract [facility] CON[facility] [address] [place] [address] , Generic ConversionMD Social History Tobacco Use Types Packs/Day Years [...] Info) Description 02/10/2025 3:30 PM CDT Appointment [facility] Radiation Oncology [address] [address] Lg Sargent MD [address] [place] [address] 02/10/2025 4:15 PM CDT Appointment [facility] Radiation [facility] [address] [place] [address] Lg Sargent MD [address] [place] [address] 08/11/2025 9:45 AM CDT Office Visit [facility] [place] [address] [place] [phone] Jessica Wong MD [address] [place] [address] documented as of this encounter Visit Diagnoses Not on filedocumented in this encounter Additional Health Concerns Infection Onset Date Last Indicated Resolved Time COVID-19 Rule Out 07/23/2021 07/23/2021 07/23/2021 10:52 PM CDT COVID-19 Confirmed 07/23/2021 07/23/2021 12:33 AM CDT documented as of this encounter Care Teams Tower Air Traffic Control Specialist Relationship Specialty Start Date End Date Trevin Hobbs MD [address] [place] [phone] PCP - General FAMILY PRACTICE 02/27/19 04/08/21 Sumit Suárez MD [address] [place] [phone] PCP - General FAMILY PRACTICE 04/09/21 Jessica Wong MD [address] [place] [address] Consulting Physician CARDIOVASCULAR DISEASE 12/01/24 documented as of this encounter
--- OUTSIDE RECORDS SUMMARY | 2025-02-10 12:12 | XMS_ITS | Encounter Summary ---
Author Organization [facility] Address [facility] [place] [address] Care Team Providers Care Green Tire Inspector Name Role Phone Sumit Suárez MD Primary Care Provider [phone] Jessica Wong MD Unavailable Reason for Visit * Reason Onset Date Comments Schedule Test 02/10/2025 Appointment Reminder 02/10/2025 Encounter Details Date Type Department Care Team (Late st Contact Info) Description 02/10/2025 [facility]phone [facility] [address] [place] [address] Jessica Wong MD [address] [place] [address] Schedule Test; Appointment Reminder Social History Tobacco Use Types Packs/Day Years [...] Status No 02/27/2019 4:57 PM CDT Saeed Ptety RN Active * Because of a physical, [...] Petty RN Active documented in this encounter Progress Notes * Anita Presley - 02/10/2025 11:46 AM CDT Testing has been scheduled Date 04.03.2025 Time 9:00 am Procedure Echocardiogram Follow up Appointment Scheduled Date 08.11.2025 Time 9:45am Reminder letter mailed documented in this encounter Plan of Treatment Upcoming Encounters Date Type Department Care Team (Late st Contact Info) Description 02/10/2025 3:30 PM CDT Appointment [facility] Radiation [address] [address] Lg Sargent MD [address] [place] [address] 02/10/2025 4:15 PM CDT Appointment [facility] [address] [place] [address] Lg Sargent MD [address] [place] [address] 08/11/2025 9:45 AM CDT [facility] [address] [place] [address] Jessica Wong MD [address] [place] [address] documented as of this encounter Visit Diagnoses Not on filedocumented in this encounter Care Teams Green Tire Inspector Relationship Specialty Start Date End Date Sumit Suárez MD [address] [place] [address] PCP - General FAMILY PRACTICE 04/09/21 Jessica Wong MD [address] [place] [address] Consulting Physician CARDIOVASCULAR DISEASE 12/01/24 documented as of this encounter
--- OUTSIDE RECORDS SUMMARY | 2025-02-10 12:12 | XMS_ITS | Clinical Summary ---
Author Organization [facility] Address [address] [place] [address] Care Team Providers Care Assistant Professor Of Surgery Name Role Phone Sumit Suárez MD Primary Care Provider [phone] Jessica Wong MD Unavailable Allergies Active Allergy [...] Hyperglycemia due to type 2 diabetes mellitus ([facility]) 02/27/2019 CAP (community acquired pneumonia) 02/27/2019 COPD (chronic obstructive pu lmonary disease) ([facility]) 02/27/2019 Hyperlipemia 02/27/2019 Encounters Date Type Department Care Team Description 02/10/2025 Telephone [facility] [address] [place] [phone] Jessica Wong MD Schedule Test; Appointment Reminder 02/10/2025 Travel 02/09/2025 3:23 PM CDT Hospital Encounter [address] [address] Lg Sargent MD Arrived 02/09/2025 Travel 02/08/2025 11:26 AM CDT - 02/08/2025 11:59 PM CDT Hospital Encounter [address] [address] Lg Sargent MD Discharge Disposition: Home or Self Care (Routine Discharge) 02/08/2025 Travel 02/07/2025 3:30 PM CDT - 02/07/2025 11:59 PM CDT Hospital Encounter [address] [address] Lg Sargent MD Discharge Disposition: Home or Self Care (Routine Discharge) 02/07/2025 Travel 02/04/2025 3:30 PM CDT - 02/04/2025 11:59 PM CDT Hospital Encounter [address] [address] Lg Sargent MD Discharge Disposition: Home or Self Care (Routine Discharge) 02/04/2025 Travel 02/03/2025 11:21 AM CDT - 02/03/2025 11:59 PM CDT Hospital Encounter [address] [address] Lg Sargent MD Discharge Disposition: Home or Self Care (Routine Discharge) 02/03/2025 Travel 02/02/2025 11:40 AM CDT - 02/02/2025 11:59 PM CDT Hospital Encounter [address] [address] Lg Sargent MD Discharge Disposition: Home or Self Care (Routine Discharge) 02/01/2025 3:54 PM CDT - 02/01/2025 11:59 PM CDT Hospital Encounter [address] [address] Lg Sargent MD Discharge Disposition: Home or Self Care (Routine Discharge) 02/01/2025 3:30 PM CDT - 02/01/2025 3:53 PM CDT Hospital Encounter [address] [address] Lg Sargent MD Discharge Disposition: Home or Self Care (Routine Discharge) 02/01/2025 Travel 01/31/2025 3:30 PM CDT - 01/31/2025 11:59 PM CDT Hospital Encounter [address] [address] Lg Sargent MD Discharge Disposition: Home or Self Care (Routine Discharge) 01/31/2025 Travel 01/28/2025 3:30 PM CDT - 01/28/2025 11:59 PM CDT Hospital Encounter [address] [address] Lg Sargent MD Discharge Disposition: Home or Self Care (Routine Discharge) 01/28/2025 Travel 01/27/2025 10:30 AM CDT - 01/27/2025 11:59 PM CDT Hospital Encounter [address] [address] Lg Sargent MD Discharge Disposition: Home or Self Care (Routine Discharge) 01/27/2025 10:10 AM CDT - 01/27/2025 10:29 AM CDT Hospital Encounter [address] [address] Lg Sargent MD Discharge Disposition: Home or Self Care (Routine Discharge) 01/26/2025 3:30 PM CDT - 01/26/2025 11:59 PM CDT Hospital Encounter [facility] Oncology - [place] [address] [place] [address] Lg Sargent MD Discharge Disposition: Home or Self Care (Routine Discharge) 01/26/2025 Travel 01/07/2025 11:28 AM CDT - 01/07/2025 11:59 PM CDT Hospital Encounter [facility] [address] [place] [address] Yaakov Frazier MD Discharge Disposition: Home or Self Care (Routine Discharge) 01/07/2025 Travel 12/03/2024 Telephone [facility] [address] [place] [address] Jessica Wong MD Question 12/02/2024 12:30 PM CDT Office Visit [facility] [phone] Jessica Wong MD Heart Problem 12/02/2024 Scan [facility] [address] [place] [address] Scanned, Doc Pccl 12/01/2024 Travel 11/30/2024 Orders Only [facility] [address] [place] [address] Jessica Wong MD 11/24/2024 12:30 PM CDT - 11/24/2024 11:59 PM CDT Hospital Encounter [facility] - [place] [address] [place] [address] Lg Sargent MD Discharge Disposition: Home or Self Care (Routine Discharge) 11/24/2024 12:23 PM CDT - 11/24/2024 12:29 PM CDT Hospital Encounter [facility] [address] [place] [address] Lg Sargent MD Discharge Disposition: Home or Self Care (Routine Discharge) 11/24/2024 Orders Only [facility] [address] [place] [address] Jessica Wong MD 11/24/2024 Travel 11/23/2024 8:12 AM CDT - 11/23/2024 11:59 PM CDT Hospital Encounter [facility] [address] [place] [address] Yaakov Frazier MD Discharge Disposition: Home or Self Care (Routine Discharge) 11/22/2024 1:30 PM CDT - 11/22/2024 11:59 PM CDT Hospital Encounter [address] [address] Lg Sargent MD Discharge Disposition: Home or Self Care (Routine Discharge) 11/22/2024 Travel 11/16/2024 7:25 AM CDT - 11/16/2024 11:59 PM CDT Hospital Encounter [facility] [address] [place] [address] Yaakov Frazier MD Discharge Disposition: Home or Self Care (Routine Discharge) 11/16/2024 Orders Only [facility] [address] [place] [address] Yaakov Frazier MD 11/16/2024 Travel 11/11/2024 10:45 AM CDT - 11/11/2024 11:59 PM CDT Hospital Encounter [address] [address] Lg Sargent MD Discharge Disposition: Home or Self Care (Routine Discharge) 11/11/2024 Travel from Last 3 Months Family History Medical [...] 12/02/2024 1:52 PM CDT Plan of Treatment Upcoming Encounters Date Type Department Care Team (Late st Contact Info) Description 02/10/2025 3:30 PM CDT Appointment [facility]iation [address] [address] Lg Sargent MD [address] [place] [address] 02/10/2025 4:15 PM CDT Appointment [facility]iation [address] [address] Lg Sargent MD [address] [place] [address] 08/11/2025 9:45 AM CDT Office Visit [facility] [address] [address] Jessica Wong MD [address] [place] [address] Health Maintenance Due Date Last Done Comments [...] series) 2018 Annual Medicare Wellness Visit 2023 Influenza Adult (#1) 2025 Hemoglobin A1C 02/16/2025 11/16/2024, 02/28/2019 AAA SCREENING [...] Associated Diagnosis Comments PET EYE TO THIGH [id number] PATIENCE 01/07/2025 1:49 PM CDT Malignant neoplasm [...] Months Results * PET EYE TO THIGH [id number] (01/07/2025 1:49 PM CDT) Anatomical Region Laterality [...] 2:33 PM Narrative 01/07/2025 3:43 PM CDT [address] [address] EXAMINATION: FDG PET/CT HISTORY: Reason for examination [...] Procedure Note Zbigniew Ferrell MD - 01/07/[address] [address] EXAMINATION: FDG PET/CT HISTORY: Reason for examination [...] Frazier MD PET Final Result * NOT [facility] - ELECTROCARDIOGRAM, TRACING (12/02/2024) Jessica Wong MD [...] 1:52 PM Narrative 11/24/2024 1:58 PM CDT [address] [place] [address] Examination: Radiation therapy planning CT scan. Exam time: 1303 hours. Clinical history: Head and neck cancer. Comparison: CT of the neck, 11/23/2024; PET/CT scan ([facility]), 10/11/2024. Technique: Postcontrast axial scans from [...] Procedure Note Massimo Ellsworth MD - 11/24/2024 [place] [address] [place] [address] Examination: Radiation therapy planning CT scan. Exam time: 1303 hours. Clinical history: Head and neck cancer. Comparison: CT of the neck, 11/23/2024; PET/CT scan ([facility]), 10/11/2024. Technique: Postcontrast axial scans from the [...] 9:27 AM Narrative 11/23/2024 9:42 AM CDT [address] [place] [address] EXAMINATION:Neck [address] with contrast 11/23/2024 INDICATION:Squamous cell [...] Procedure Note Augusto Soto MD - 11/23/2024 [facility] [address] [place] [address] EXAMINATION:Neck [address] with contrast 11/23/2024 INDICATION:Squamous cell [...] CORTISOL 7.9 mcg/dL 11/17/2024 12:18 AM CDT [facility] Comment: A.M. SPECIMENS: 5.3 TO 22.5 mcg/dL P.M. SPECIMENS: 3.4 TO 16.8 mcg/dL ASSAY PERFORMED BY CHEMILUMINESCENCE METHODOLOGY USING SIEMENS CENTAUR XPT REAGENT. PATIENT RESULTS DETERMINED BY ASSAYS USING DIFFERENT MANUFACTURERS FOR METHODS MAY NOT BE COMPARABLE. 11/16/2024 4:35 PM CDT Yaakov Frazier MD LABORATORY Final Result [facility] [address] [place] [address], [phone] * TSH W/REFLEX (11/16/2024 7:42 AM CDT) TSH 2.280 0.358 - 3.740 uIU/ML 11/16/2024 8:23 AM CDT [facility] Comment: FREE T4 NOT INDICATED ASSAY PERFORMED BY CHEMILUMINESCENT IMMUNOASSAY METHODOLOGY USING SIEMENS DIMENSION REAGENT. PATIENT RESULTS DETERMINED BY ASSAYS FROM DIFFERENT MANUFACTURERS AND/OR BY DIFFERENT METHODS MAY NOT BE COMPARABLE. 11/16/2024 7:42 AM CDT us Yaakov Frazier MD LABORATORY Final Result Performing Organization Address [facility] Co de Phone Number [facility] [address] [place] [address], [place] [phone] * (ABNORMAL) HEMOGLOBIN, GLYCOSYLATED (11/16/2024 7:42 AM CDT) HGB A1C 9.0(H) <5.7 % 11/16/2024 1:28 PM CDT [facility] ESTIMATED AVG GLUCOSE 212(H) 74 - 114 MG/DL 11/16/2024 1:28 PM CDT [facility] 11/16/2024 7:42 AM CDT us Yaakov Frazier MD LABORATORY Final Result Performing Organization Address [facility] Co de Phone Number [facility] [address] [place] [address], [place] [phone] * (ABNORMAL) COMPREHENSIVE METABOLIC PANEL (11/16/2024 7:42 AM CDT) SODIUM S/P/B 137 136 - 145 MMOL/L 11/16/2024 8:23 AM CDT [facility] POTASSIUM S/P/B 5.1 3.5 - 5.1 MMOL/L 11/16/2024 8:23 AM CDT [facility] CHLORIDE S/P/B 101 98 - 107 MMOL/L 11/16/2024 8:23 AM CDT [facility] CO2 27.9 21.0 - 32.0 MMOL/L 11/16/2024 8:23 AM CDT [facility] GLUCOSE 224(H) 70 - 99 MG/DL 11/16/2024 8:23 AM [facility] Comment: FASTING GLUCOSE 100 TO 125 MG/DL IS CONSISTENT WITH IMPAIRED FASTING GLUCOSE. FASTING GLUCOSE >125 MG/DL IS CONSISTENT WITH DIABETES. RANDOM GLUCOSE >200 MG/DL WITH HYPERGLYCEMIC SYMPTOMS IS CONSISTENT WITH DIABETES. PER ADA GUIDELINES BUN 30(H) 6 - 24 MG/DL 11/16/2024 8:23 AM T [facility] CREATININE S/P/B 0.95 0.70 - 1.30 MG/DL 11/16/2024 8:23 AM [facility] CALCIUM S/P/B 9.0 8.4 - 10.5 MG/DL 11/16/2024 8:23 AM [facility] BILIRUBIN TOTAL S/P/B 0.3 0.2 - 1.0 MG/DL 11/16/2024 8:23 AM [facility] Comment: THIS ASSAY IS NOT RECOMMENDED FOR PATIENTS UNDERGOING TREATMENT WITH ELTROMBOPAG DUE TO THE POTENTIAL FOR FALSELY ELEVATED RESULTS. ALKALINE PHOSPHATASE S/P/B 74 45 - 115 U/L 11/16/2024 8:23 AM [facility] AST 14(L) 15 - 37 U/L 11/16/2024 8:23 AM [facility] ALT 16 16 - 63 U/L 11/16/2024 8:23 AM [facility] TOTAL PROTEIN S/P/B 7.2 6.4 - 8.2 G/DL 11/16/2024 8:23 AM [facility] ALBUMIN S/P/B 3.6 3.4 - 5.0 G/DL 11/16/2024 8:23 AM [facility] ANION GAP 8.1 5.0 - 15.0 MMOL/L 11/16/2024 8:23 AM [facility] OSMOLALITY (CALC) 297 MOSM/KG 025 8:23 AM [facility] Comment:REFERENCE RANGE NOT ESTABLISHED GFR ESTIMATE 88(L) >89 ML/MIN/1. 73 M2 11/16/2024 8:23 AM CDT [facility] GFR NOTES GFR REFERENCE S: 11/16/2024 8:23 AM CDT [facility] Comment: THE ESTIMATED GFR IS CALCULATED [...] CDT Yaakov Frazier MD LABORATORY Final Result [facility] [address] [place] [address], * (ABNORMAL) CBC W/DIFF AUTOMATED (11/16/2024 7:42 AM CDT) WBC 7.61 4.00 - 10.80 x10'3/uL 11/16/2024 7:52 AM CDT [facility] RBC 4.78 4.50 - 6.10 x10'6/uL 11/16/2024 7:52 AM CDT [facility] HGB 15.3 13.0 - 18.0 G/DL 11/16/2024 7:52 AM CDT [facility] HCT 45.4 37.0 - 52.0 % 11/16/2024 7:52 AM CDT [facility] MCV 95.0 78.0 - 100.0 FL 11/16/2024 7:52 AM CDT [facility] MCH 32.0(H) 27.0 - 31.0 PG 11/16/2024 7:52 AM CDT [facility] MCHC 33.7 33.0 - 36.0 G/DL 11/16/2024 7:52 AM CDT [facility] RDW 14.2 11.5 - 14.5 % 11/16/2024 7:52 AM CDT [facility] PLT 247 150 - 350 x10'3/uL 11/16/2024 7:52 AM CDT [facility] MPV 9.9 7.4 - 10.4 FL 11/16/2024 7:52 AM CDT [facility] CBC COMMENT NORMAL REFERENCE RANGE NOT ESTABLISHED FOR THE PROPORTIONAL LEUKOCYTE DIFFERENTIAL. 11/16/2024 7:52 AM CDT [facility] NEUTROPHILS % 61.7 % 11/16/2024 7:52 AM CDT [facility] LYMPHOCYTES % 22.6 % 11/16/2024 7:52 AM CDT [facility] MONOCYTES % 11.0 % 11/16/2024 7:52 AM CDT [facility] EOSINOPHILS % 1.8 % 11/16/2024 7:52 AM CDT [facility] BASOPHILS % 2.0 % 11/16/2024 7:52 AM CDT [facility] IMMATURE GRANS % 0.9 % 11/17/19 7:52 AM CDT [facility] NRBC % 0.0 % 11/16/2024 7:52 AM CDT [facility] ABS. NEUTROPHILS 4.69 1.60 - 8.30 x10'3/uL 11/16/2024 7:52 AM CDT [facility] ABS. LYMPHOCYTES 1.72 0.80 - 4.70 x10'3/uL 11/16/2024 7:52 AM CDT [facility] ABS. MONOCYTES 0.84 0.00 - 1.50 x10'3/uL 11/16/2024 7:52 AM CDT [facility] ABS. EOSINOPHILS 0.14 0.00 - 0.40 x10'3/uL 11/16/2024 7:52 AM CDT [facility] ABS. BASOPHILS 0.15 0.00 - 0.20 x10'3/uL 11/16/2024 7:52 AM CDT [facility] ABS. IMMATURE GRANULOCYTES 0.07(H) 0.00 - 0.03 x10'3/uL 11/16/2024 7:52 AM CDT [facility] ABS. NUCLEATED RBC'S 0.00 0.00 - 0.01 x10'3/uL 11/16/2024 7:52 AM CDT [facility] 11/16/2024 7:42 AM CDT us Yaakov Frazier MD LABORATORY Final Result [facility] [address] [place] [address], [place] [phone] * MAGNESIUM (11/16/2024 7:42 AM CDT) MAGNESIUM 2.2 1.8 - 2.4 MG/DL 11/16/2024 8:23 AM CDT [facility] 11/16/2024 7:4 2 AM CDT us Yaakov Frazier MD LABORATORY Final Result Performing Organization Address [facility] Co de Phone Number [facility] [address] [place] [address], [place] [phone] from Last 3 Months Insurance MEDICARE Advance Directives * Full Code (Latest Code Status on File) Date Activated Date Inactivated Comments 02/27/2019 4:44 PM 02/28/2019 1:51 PM Care Teams Assistant Professor Of Surgery Relationship Specialty Start Date End Date Sumit Suárez MD [address] [place] [phone] PCP - General FAMILY PRACTICE 04/09/21 Jessica Wong MD [address] [place] [address] Consulting Physician CARDIOVASCULAR DISEASE 12/01/24
--- OUTSIDE RECORDS SUMMARY | 2025-02-10 12:12 | XMS_ITS | Encounter Summary ---
Author Organization [facility] Address [facility] [place] [address] Care Team Providers Care Junior Manufacturing Engineer Name Role Phone Sumit Suárez MD Primary Care Provider [phone] Jessica Wong MD Unavailable Encounter Details Date Type Department Care Team (Latest Contact Info) Description 02/09/2025 Travel Social History Tobacco Use Types Packs/Day [...] CDT Appointment [facility] Radiation [facility] - [address] [address] Lg Sargent MD [address] [place] [address] 02/10/2025 4:15 PM CDT Appointment [facility] - [address] [address] Lg Sargent MD [address] [place] [address] 08/11/2025 9:45 AM CDT Office Visit [facility] [address] [phone] Jessica Wong MD [address] [place] [address] documented as of this encounter Visit Diagnoses Not on filedocumented in this encounter Care Teams Junior Manufacturing Engineer Relationship Specialty Start Date End Date Sumit Suárez MD [address] [place] [phone] PCP - General FAMILY PRACTICE 04/09/21 Jessica Wong MD [address] [place] [address] Consulting Physician CARDIOVASCULAR DISEASE 12/01/24 documented as of this encounter
--- OUTSIDE RECORDS SUMMARY | 2025-02-10 12:12 | XMS_ITS | Encounter Summary ---
Author Organization [facility] Address [facility] [place] [address] Care Team Providers Care Newscast Director Name Role Phone Sumit Suárez MD Primary Care Provider [phone] Jessica Wong MD Unavailable Encounter Details Date Type Department Care Team (Latest Contact Info) Description 02/10/2025 Travel Social History Tobacco Use Types Packs/Day [...] Info) Description 02/10/2025 3:30 PM CDT Appointment [facility] Radiation [facility] - [address] [address] Lg Sargent MD [address] [place] [address] 02/10/2025 4:15 PM CDT Appointment [facility] - [address] [address] Lg Sargent MD [address] [place] [address] 08/11/2025 9:45 AM CDT Office Visit [facility] [address] [phone] Jessica Wong MD [address] [place] [address] documented as of this encounter Visit Diagnoses Not on filedocumented in this encounter Care Teams Newscast Director Relationship Specialty Start Date End Date Sumit Suárez MD [address] [place] [phone] PCP - General FAMILY PRACTICE 04/09/21 Jessica Wong MD [address] [place] [address] Consulting Physician CARDIOVASCULAR DISEASE 12/01/24 documented as of this encounter
[2025-02-10 12:27] VITALS: BP 121/56; PULSE 80; RESP 14; TEMP 36.8; O2SAT 98; BMI 22.6
[2025-02-10 12:38] LABS: Hematocrit 39.7 % (37.0-46.0); Hemoglobin 12.9 g/dL (12.4-15.3); Immature Granulocyte Percent A 0.4 % (0.0-0.0); Lymphocytes Absolute Auto 0.74 K/mm3 (1.10-4.50); Mean Corpuscular HGB Conc 32.5 g/dL (32-36); Mean Corpuscular Hemoglobin 31.5 pg (27.0-31.0); Mean Corpuscular Volume 97.1 fL (78.0-102.0); Nucleated Red Blood Cells Absolute Auto 0.00 K/mm3 (0.00-0.00); Nucleated Red Blood Cells Perc 0.0 % (0-0.0); Platelet Count Result 146 K/mm3 (150-420); Red Blood Count 4.09 M/mm3 (4.70-6.10); White Blood Count 5.2 K/mm3 (4.8-10.8)
[2025-02-10 12:43] LABS: Alanine Aminotransferase 27 U/L (6-50); Albumin Level 4.1 g/dL (3.5-5.1); Alkaline Phosphatase 50 U/L (38-126); Anion Gap 8 mmol/L (4-12); Aspartate Amino Transferase 28 U/L (17-59); Bilirubin,Total 0.5 mg/dL (0.2-1.3); Blood Urea Nitrogen 28 mg/dL (9-20); Calcium 9.2 mg/dL (8.4-10.2); Carbon Dioxide 29 mmol/L (22-30); Chloride 101 mmol/L (98-107); Estimated CRCL calculation 67 ml/min; Estimated Glomerular Filt Rate > 60; Glucose 142 mg/dL (65-110); Osmolality Calculated 293 mOsm/kg (285-295); Potassium 4.8 mmol/L (3.4-5.0); Sodium 138 mmol/L (137-145); Total Protein 7.2 g/dL (6.3-8.2)
[2025-02-10] MEDS: PEMBROLIZUMAB 200 MG in SODIUM CHLORIDE 0.9% IV 100 ML IVPB (12:44)
[2025-02-10 13:14] LABS: Thyroid Stimulating Hormone 1.120 uIU/mL (0.465-4.680)
[2025-02-10] MEDS: HEPARIN SODIUM LOCK FLUSH 500 UNITS/5 ML SYRINGE IV PUSH (13:46)
[2025-02-10 13:48] VITALS: BP 127/78; PULSE 72; RESP 14
--- NOTE | 2025-02-10 13:49 | PC.NURSE ---
Patient tolerated Pembrolizumab infusion well today. See MAR/patient care notes.
== END 2025-02-10 12:08 | disposition home or self-care (01) ==
PROVIDERS: PCP Family Medicine; Visit Provider Internal Medicine Hematology & Oncology
DX: Z51.11 Encounter for antineoplastic chemotherapy (principal); C13.9 Malignant neoplasm of hypopharynx, unspecified; C32.3 Malignant neoplasm of laryngeal cartilage; R53.83 Other fatigue
CPT/HCPCS: 36415; 80053; 82533; 84443; 85025; 96413; J9271

== ENCOUNTER 2025-02-16 16:36 | Outpatient (CLI) | payer MEDICARE, SELFPAY ==
[2025-02-16 16:52] LABS: Hematocrit 40.2 % (37.0-46.0); Hemoglobin 13.2 g/dL (12.4-15.3); Immature Granulocyte Percent A 0.0 % (0.0-0.0); Lymphocytes Absolute Auto 0.63 K/mm3 (1.10-4.50); Mean Corpuscular HGB Conc 32.8 g/dL (32-36); Mean Corpuscular Hemoglobin 32.1 pg (27.0-31.0); Mean Corpuscular Volume 97.8 fL (78.0-102.0); Nucleated Red Blood Cells Absolute Auto 0.00 K/mm3 (0.00-0.00); Nucleated Red Blood Cells Perc 0.0 % (0-0.0); Platelet Count Result 109 K/mm3 (150-420); Red Blood Count 4.11 M/mm3 (4.70-6.10); White Blood Count 4.3 K/mm3 (4.8-10.8)
[2025-02-16 17:26] LABS: Alanine Aminotransferase 27 U/L (6-50); Albumin Level 4.3 g/dL (3.5-5.1); Alkaline Phosphatase 59 U/L (38-126); Anion Gap 9 mmol/L (4-12); Aspartate Amino Transferase 26 U/L (17-59); Bilirubin,Total 0.4 mg/dL (0.2-1.3); Blood Urea Nitrogen 42 mg/dL (9-20); Calcium 9.6 mg/dL (8.4-10.2); Carbon Dioxide 30 mmol/L (22-30); Chloride 99 mmol/L (98-107); Estimated Glomerular Filt Rate > 60; Glucose 283 mg/dL (65-110); Osmolality Calculated 306 mOsm/kg (285-295); Potassium 5.3 mmol/L (3.4-5.0); Sodium 138 mmol/L (137-145); Total Protein 7.5 g/dL (6.3-8.2)
[2025-02-17 14:21] LABS: Magnesium 2.2 mg/dL (1.6-2.3)
== END 2025-02-16 16:37 | disposition home or self-care (01) ==
LOC: CHSLAB 16:39
PROVIDERS: PCP Family Medicine; Visit Provider Internal Medicine Hematology
DX: C32.3 Malignant neoplasm of laryngeal cartilage (principal); D46.9 Myelodysplastic syndrome, unspecified
CPT/HCPCS: 36415; 80053; 82533; 83735; 85025

== ENCOUNTER 2025-02-17 13:36 | Outpatient (CLI) | payer MEDICARE, OTHER, SELFPAY ==
[2025-02-17] MEDS: POTASSIUM CHLORIDE IVPB ×2 (13:30→15:45)
[2025-02-17] MEDS: [UNRECOGNIZED DRUG - OTHER] IVPB (13:30)
[2025-02-17] MEDS: MAGNESIUM SULFATE IVPB ×2 (13:30→15:45)
[2025-02-17 13:40] VITALS: BP 103/59; PULSE 78; RESP 16; TEMP 36.6; O2SAT 97
[2025-02-17] MEDS: SODIUM CHLORIDE 0.9% IVPB ×2 (14:30→15:30)
[2025-02-17] MEDS: CISPLATIN IVPB (14:30)
[2025-02-17] MEDS: MANNITOL 20% IVPB (15:30)
[2025-02-17] MEDS: [UNRECOGNIZED DRUG - OTHER] IVPB (15:45)
[2025-02-17] MEDS: HEPARIN SODIUM LOCK FLUSH 500 UNITS/5 ML SYRINGE IV PUSH (17:19)
[2025-02-17 17:29] VITALS: BP 113/60; PULSE 76; RESP 14; TEMP 36.6; O2SAT 97
--- NOTE | 2025-02-17 17:40 | PC.NURSE ---
Patient tolerated chemo treatment well today. See MAR/patient care notes.
== END 2025-02-17 13:37 | disposition home or self-care (01) ==
PROVIDERS: PCP Family Medicine; Visit Provider Internal Medicine Hematology & Oncology
DX: Z51.11 Encounter for antineoplastic chemotherapy (principal); C13.9 Malignant neoplasm of hypopharynx, unspecified
CPT/HCPCS: 96367; 96413; J2151; J3475; J3480; J7030; J7040; J9060

== ENCOUNTER 2025-03-02 14:54 | Outpatient (CLI) | payer MEDICARE, OTHER, SELFPAY ==
--- OUTSIDE RECORDS SUMMARY | 2025-02-28 15:30 | XMS_ITS | Encounter Summary ---
Author Organization [facility] Address Count includes the [facility] [place] [address] Care Team Providers Care Detail Sergeant Name Role Phone Sumit Suárez MD Primary Care Provider [phone] Jessica Wong MD Unavailable Encounter Details Date Type Department Care Team (Latest Contact Info) Description 02/28/2025 3:30 PM CDT - 02/28/2025 11:59 PM CDT Hospital Encounter [facility] Radiation Oncology - [address] [address] Lg Sargent MD [address] [place] [address] Discharge Disposition: Home or Self Care (Routine [...] Care Team (Late st Contact Info) Description 03/03/2025 10:00 AM CDT Appointment [facility] Oncology - [address] [address] Lg Sargent MD [address] [place] [address] 08/11/2025 9:45 AM CDT Office Visit [facility] [address] [phone] Jessica Wong MD [address] [place] [address] documented as of this encounter Visit Diagnoses Not on filedocumented in this encounter Care Teams Detail Sergeant Relationship Specialty Start Date End Date Sumit Suárez MD [address] [place] [phone] PCP - General FAMILY PRACTICE 04/09/21 Jessica Wong MD [address] [place] [address] Consulting Physician CARDIOVASCULAR DISEASE 12/01/24 documented as of this encounter
--- OUTSIDE RECORDS SUMMARY | 2025-03-01 15:30 | XMS_ITS | Encounter Summary ---
Author Organization [facility] Address [facility] [place] [address] Care Team Providers Care Chief Quality Officer Name Role Phone Sumit Suárez MD Primary Care Provider [phone] Jessica Wong MD Unavailable Encounter Details Date Type Department Care Team (Late st Contact Info) Description 03/01/2025 3:30 PM CDT Hospital Encounter [facility] Radiation Oncology - [place] [phone] [place] [address] Lg Sargent MD [address] [place] [address] Social History Tobacco Use Types Packs/Day Years Used Date Smoking Tobacco: Former Cigarettes Smokeless Tobacco: Never Alcohol Use Standard [...] PM CDT Saeed Petty RN Active * Calculated C-SSRS Risk Score (Lifetime/Recent) Answer Date of Assessment Author Status No Risk Indicated 03/02/2025 5:57 PM CDT Magalis Hinds RN Active * [place] Suicide Severity Rating Scale (Screener/Recent Self-Report) Question Answer Date of Assessment Author Status 1. Wish to be (Past 1 Month) No 03/02/2025 5:57 PM CDT Tiffany Hinds RN Acti ve 2. Non-Specific Active Suicidal Thoughts (Past 1 Month) No 03/02/2025 5:57 PM CDT Tiffany Hinds RN Acti ve 6. Suicidal Behavior (Lifetime) No 03/02/2025 5:57 PM KATHYT Tiffany Hinds RN Acti ve documented as of this encounter Mental Status [...] Info) Description 03/03/2025 10:00 AM CDT Appointment [facility]iation Oncology - [place] [address] [place] [address] Lg Sargent MD [address] [place] [address] 08/11/2025 9:45 AM CDT Office Visit [facility] [address] [phone] Jessica Wong MD [address] [place] [address] documented as of this encounter Visit Diagnoses Not on filedocumented in this encounter Care Teams Chief Quality Officer Relationship Specialty Start Date End Date Sumit Suárez MD [address] [place] [phone] PCP - General FAMILY PRACTICE 04/09/21 Jessica Wong MD [address] [place] [address] Consulting Physician CARDIOVASCULAR DISEASE 12/01/24 documented as of this encounter
--- OUTSIDE RECORDS SUMMARY | 2025-03-02 14:14 | XMS_ITS | Encounter Summary ---
Author Organization [facility] Address [facility] [place] [address] Care Team Providers Care Branch Specialist Name Role Phone Sumit Suárez MD Primary Care Provider [phone] Jessica Wong MD Unavailable Encounter Details Date Type Department Care Team (Late st Contact Info) Description 03/02/2025 2:14 PM CDT Hospital Encounter [facility] Radiation Oncology - [place] [id number] [place] [address] Lg Sargent MD [address] [place] [address] Social History Tobacco Use Types Packs/Day Years [...] Risk Indicated 03/02/2025 5:57 PM CDT Magalis Hidns RN Active * [place] Suicide Severity Rating Scale (Screener/Recent Self-Report) Question [...] Info) Description 03/03/2025 10:00 AM CDT Appointment [facility] Radiation Oncology - [place] [address] [place] [address] Lg Sargent MD [address] [place] [address] 08/11/2025 9:45 AM CDT Office Visit [facility] [address] [phone] Jessica Wong MD [address] [place] [address] documented as of this encounter Visit Diagnoses Not on filedocumented in this encounter Care Teams Branch Specialist Relationship Specialty Start Date End Date Sumit Suárez MD [address] [place] [phone] PCP - General FAMILY PRACTICE 04/09/21 Jessica Wong MD [address] [place] [address] Consulting Physician CARDIOVASCULAR DISEASE 12/01/24 documented as of this encounter
[2025-03-02 15:37] LABS: Hematocrit 42.3 % (37.0-46.0); Hemoglobin 13.2 g/dL (12.4-15.3); Mean Corpuscular HGB Conc 31.2 g/dL (32-36); Mean Corpuscular Hemoglobin 32.4 pg (27.0-31.0); Mean Corpuscular Volume 103.7 fL (78.0-102.0); Platelet Count Result 145 K/mm3 (150-420); Red Blood Count 4.08 M/mm3 (4.70-6.10); White Blood Count 4.8 K/mm3 (4.8-10.8)
[2025-03-02 15:52] LABS: Alanine Aminotransferase 58 U/L (6-50); Albumin Level 4.9 g/dL (3.5-5.1); Alkaline Phosphatase 93 U/L (38-126); Aspartate Amino Transferase 28 U/L (17-59); Bilirubin,Total 0.6 mg/dL (0.2-1.3); Blood Urea Nitrogen 46 mg/dL (9-20); Calcium 10.2 mg/dL (8.4-10.2); Carbon Dioxide < 5 mmol/L (22-30); Chloride 97 mmol/L (98-107); Estimated Glomerular Filt Rate 52; Magnesium 2.5 mg/dL (1.6-2.3); Osmolality Calculated 311 mOsm/kg (285-295); Sodium 130 mmol/L (137-145); Total Protein 7.9 g/dL (6.3-8.2)
[2025-03-02 16:03] LABS: Potassium 7.5 mmol/L (3.4-5.0)
[2025-03-02 16:04] LABS: Glucose > 625 mg/dL (65-110)
[2025-03-02 16:22] LABS: Thyroid Stimulating Hormone 0.998 uIU/mL (0.465-4.680)
--- OUTSIDE RECORDS SUMMARY | 2025-03-02 18:03 | XMS_ITS | Encounter Summary ---
Author Organization [facility] Address [facility] [place] [address] Care Team Providers Care Central Melt Specialist Name Role Phone Sumit Suárez MD Primary Care Provider [phone] Jessica Wong MD Unavailable Reason for Visit * Reason Comments Abnormal Lab Results Encounter Details Date Type Department Care Team (Late st Contact Info) Description 03/02/2025 6:03 PM CDT - Present Emergency [facility] [address] [place] [address] [place] [address] Jeremie Harrison MD [address] [place] [address] Abnormal Lab Results Social History Tobacco Use Types Packs/Day Years Used Date Smoking Tobacco: Former Cigarettes Smokeless Tobacco: Never Tobacco Cessation:Counseling Given: Not Answered Alcohol Use Standard Drinks/Week [...] on file documented as of this encounter Last Filed Vital Signs Vital Sign Reading Time Taken Comments Blood Pressure 94/57 03/02/2025 5:43 PM CDT Pulse 117 03/02/2025 5:43 PM CDT Temperature 36.4 C (97.6 F) 03/02/2025 5:43 PM CDT Respiratory Rate 18 03/02/2025 5:43 PM CDT Oxygen Saturation 98% 03/02/2025 5:43 PM CDT Inhaled Oxygen Concentration - - Weight 54.4 kg (120 lb) 03/02/2025 5:43 PM CDT Height 165.1 cm (5' 5) 03/02/2025 5:43 PM CDT Body Mass Index 19.97 03/02/2025 5:43 PM CDT documented in this encounter Functional Status * RETIRED Are [...] PM CDT Magalis Hinds RN Active * [place] Suicide Severity Rating Scale (Screener/Recent Self-Report) Question Answer Date of Assessment Author Status 1. Wish to be (Past 1 Month) No 03/02/2025 5:57 PM CDT Tiffany Hinds RN Acti ve 2. Non-Specific Active Suicidal Thoughts (Past 1 Month) No 03/02/2025 5:57 PM CDT Tiffany Hinds, RN Acti ve 6. Suicidal Behavior (Lifetime) No 03/02/2025 5:57 PM CDT Tiffany Hinds RN Acti ve documented as of this encounter Mental Status * Because of a physical, mental, or emotional condition, do you have serious difficulty concentrating, remembering, or making decisions? Answer Entry Date Author Status No 02/27/2019 4:57 PM CDT Saeed Petty RN Active documented in this encounter ED Notes * Jeremie Harrison MD - 03/02/2025 6:10 PM CDT Chief Complaint Chief Complaint Patient presents with Abnormal Lab Results History of Present Illness Abnormal Lab Results The patient is a 64-year-old male with past medical history significant for throat cancer as well as diabetes who is here for abnormal labs. The patient describes that he has been feeling generally unwell with generalized fatigue for the past week and a half. He has had a sore throat as well. He has had elevated blood sugars as he has not felt like eating and has been taking protein shakes. Theseseem to elevate his blood sugars. He has been managing his hyperglycemia with sliding scale insulinnormally. Today he had to get labs completed and did not take any insulin. He was told that he had elevated blood sugar and an elevated potassium and therefore was sent to the emergency department. Medical History ALLERGIES: Review of patient's allergies indicates: Allergen Reactions Penicillins Hives MEDICATIONS: Prior to Admission medications Medication Sig Start Date End Date Taking? Authorizing Provider albuterol sulfate HFA 108 (90 Base) MCG/ACT inhaler Inhale 2 puffs into the lungs every 8 (eight) hours as needed for Wheezing or Shortness of breath. Default History Genericprovider empagliflozin (JARDIANCE) 25 MG tablet Take 1 tablet (25 mg total) by mouth daily. Default History Genericprovider famotidine (PEPCID) 40 MG tablet Take 1 tablet (40 mg total) by mouth daily. Default History Genericprovider Insulin Syringe-Needle U-100 (INSULIN SYRINGE .3CC/29GX1/2) 29G X 1/2 0.3 ML Misc Use as [id number]/20/19 Shawna Sam NP metFORMIN (GLUCOPHAGE) 500 MG tablet Take 2 tablets (1,000 mg total) by mouth 2 (two) times daily with meals. Doc [facility] Abstract omeprazole (PRILOSEC) 40 MG capsule Take 1 capsule (40 mg total) by mouth daily. Default History Genericprovider PAST MEDICAL HISTORY: Past Medical History[1] PAST SURGICAL HISTORY: Past Surgical History[2] FAMILY HISTORY: Family History[3] SOCIAL HISTORY: Social History[4] Review of Systems Review of Systems Physical Exam Filed Vitals: 03/02/25 1743 BP: 94/57 Pulse: (!) 117 Resp: 18 Temp: 97.6 ??F (36.4 ??C) TempSrc: Temporal SpO2: 98% Weight: 54.4 kg (120 lb) Height: 1.651 m (5' 5) Physical Exam Constitutional: General: He is not in acute distress. Appearance: Normal appearance. He is not toxic-appearing. HENT: Head: Normocephalic and atraumatic. Right Ear: Tympanic membrane normal. Left Ear: Tympanic membrane normal. Nose: No congestion. Mouth/Throat: Mouth: Mucous membranes are moist. Comments: Voice is clear and fluent, oropharynx shows no significant erythema, uvula is midline. Eyes: General: Right eye: No discharge. Left eye: No discharge. Extraocular Movements: Extraocular movements intact. Pupils: Pupils are equal, round, and reactive to light. Cardiovascular: Rate and Rhythm: Normal rate and regular rhythm. Pulmonary: Effort: No respiratory distress. Breath sounds: No wheezing or rhonchi. Abdominal: General: Abdomen is flat. There is no distension. Tenderness: There is no abdominal tenderness. Musculoskeletal: General: Normal range of motion. Skin: General: Skin is warm. Capillary Refill: Capillary refill takes less than 2 seconds. Findings: No rash. Neurological: General: No focal deficit present. Mental Status: He is alert and oriented to person, place, and time. Cranial Nerves: No cranial nerve deficit. Sensory: No sensory deficit. Psychiatric: Mood and Affect: Mood normal. Diagnostic Studies / Procedures ELECTROCARDIOGRAMS: Results for orders placed or performed during the hospital encounter of 03/02/25 ECG 12 lead Result Value Ref Range ECG QT 316 ECG QTC [address] 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1960 Requested By: JEREMIE HARRISON Order Number: [id number] Reading MD: Measurements Intervals Montgomery Rate: 93 P: 75 UT: 163 QRS: 54 QRSD: 82 T: 49 QT: 316 QTc: 395 Interpretive Statements SINUS RHYTHM SEPTAL MYOCARDIAL INFARCTION , PROBABLY OLD LABORATORY STUDIES: Results for orders placed or performed during the hospital encounter of 03/02/25 CBC W/DIFF AUTOMATED Result Value Ref Range WBC 5.94 4.00 - 10.80 x10'3/uL RBC 3.91 (L) 4.50 - 6.10 x10'6/uL HGB 12.5 (L) 13.0 - 18.0 G/DL HCT 38.9 37.0 - 52.0 % MCV 99.5 78.0 - 100.0 FL MCH 32.0 (H) 27.0 - 31.0 PG MCHC 32.1 (L) 33.0 - 36.0 G/DL RDW 14.8 (H) 11.5 - 14.5 % PLT 130 (L) 150 - 350 x10'3/uL MPV 9.9 7.4 - 10.4 FL CBC COMMENT NORMAL REFERENCE RANGE NOT ESTABLISHED FOR THE PROPORTIONAL LEUKOCYTE DIFFERENTIAL. NEUTROPHILS % 88.1 % LYMPHOCYTES % 1.9 % MONOCYTES % 9.6 % EOSINOPHILS % 0.0 % BASOPHILS % 0.2 % IMMATURE GRANS % 0.2 % NRBC % 0.0 % ABS. NEUTROPHILS 5.24 1.60 - 8.30 x10'3/uL ABS. LYMPHOCYTES 0.11 (L) 0.80 - 4.70 x10'3/uL ABS. MONOCYTES 0.57 0.00 - 1.50 x10'3/uL ABS. EOSINOPHILS 0.00 0.00 - 0.40 x10'3/uL ABS. BASOPHILS 0.01 0.00 - 0.20 x10'3/uL ABS. IMMATURE GRANULOCYTES 0.01 0.00 - 0.03 x10'3/uL ABS. NUCLEATED RBC'S 0.00 0.00 - 0.01 x10'3/uL COMPREHENSIVE METABOLIC PANEL Result Value Ref Range SODIUM S/P/B 138 136 - 145 MMOL/L POTASSIUM S/P/B 5.5 (H) 3.5 - 5.1 MMOL/L CHLORIDE S/P/B 97 (L) 98 - 107 MMOL/L CO2 14.5 (L) 21.0 - 32.0 MMOL/L GLUCOSE 623 (HH) 70 - 99 MG/DL BUN 55 (H) 6 - 24 MG/DL CREATININE S/P/B 1.97 (H) 0.70 - 1.30 MG/DL CALCIUM S/P/B 10.0 8.4 - 10.5 MG/DL BILIRUBIN TOTAL S/P/B 0.4 0.2 - 1.0 MG/DL ALKALINE PHOSPHATASE S/P/B 82 45 - 115 U/L AST 15 15 - 37 U/L ALT 63 16 - 63 U/L TOTAL PROTEIN S/P/B 7.5 6.4 - 8.2 G/DL ALBUMIN S/P/B 3.8 3.4 - 5.0 G/DL ANION GAP 26.5 (H) 5.0 - 15.0 MMOL/L OSMOLALITY (CALC) 330 MOSM/KG GFR ESTIMATE 37 (L) >89 ML/MIN/1.73 M2 GFR NOTES GFR REFERENCES: BETA-HYDROXYBUTYRATE Result Value Ref Range BETA-HYDROXYBUTYRATE 5.7 (H) 0.0 - 0.3 MMOL/L LIPASE Result Value Ref Range LIPASE 17 16 - 77 UNITS/L Blood gas, venous Result Value Ref Range PH VENOUS 7.23 (L) 7.32 - 7.43 PCO2 VENOUS 33.0 MMHG PO2 VENOUS 36.0 MM HG TOTAL CO2 VENOUS 14.8 (L) 22.0 - 26.0 MMOL/L BASE DEFICIT VENOUS 12.6 MMOL/L O2 SAT VENOUS 56 % BICARB VENOUS 13.8 (L) 22.0 - 29.0 MMOL/L O2 ADMIN VENOUS ROOM AIR URINALYSIS Result Value Ref Range COLOR (U) YELLOW TRANSPARENCY CLEAR SPECIFIC GRAVITY (U) 1.005 1.000 - 1.025 U PH 5.0 5.0 - 8.0 LEUKOCYTES (U) NEGATIVE NEGATIVE NITRITES NEGATIVE NEGATIVE PROTEIN RANDOM (U) NEGATIVE NEGATIVE GLUCOSE (U) 3+ (A) NEGATIVE KETONES MG/DL (U) 3+ (A) NEGATIVE UROBILINOGEN 0.2 <1.0 EU/DL BILIRUBIN (U) NEGATIVE NEGATIVE BLOOD (U) NEGATIVE NEGATIVE WBC/HPF 0-5 0 - 5 /HPF RBC/HPF 0-5 0 - 5 /HPF EPI/LPF RARE /LPF BACTERIA (U) 1+ /HPF POCT glucose Result Value Ref Range GLUCOSE POC >500 (H) 70 - 99 MG/DL ECG 12 lead Result Value Ref Range ECG QT 316 ECG QTC 395 IMAGING STUDIES No orders to display ED Course / Medical Decision Making Medical Decision Making Amount and/or Complexity of Data Reviewed Labs: ordered. ECG/medicine tests: ordered. On exam, the patient does have a tachycardic rate with borderline low blood pressures. The patient otherwise has a dry mouth no other significant findings. I am suspicious that the patient is experiencing DKA. The patient will be further evaluated with labs. He was started on IV fluids. The patientpH is 7.23, beta hydroxybutyrate is 5.7. The patient was signed out to the oncoming physician to follow-up on CMP results and likely start insulin drip and transfer. ED Course as of 03/02/251914Mar 02, [id number] ECG at 1902, normal sinus rhythm, rate 93, intervals: UT-normal, QRS- narrow, no significant STelevation or depression. No significant peaked T waves no evidence of sine waves. [LS] 1913 I did call [facility] as the patient has been seen there previously. There were no ICU beds and they could place the patient on a wait list. I then called [facility] and just requested a ICU bed. They will review and get back to us. [LS] ED Course User Index [LS] Jeremie Harrison MD Clinical Impression DKA (diabetic ketoacidosis) ([facility]) (Primary) Tachycardia Disposition: Transfer to Another Facility Jeremie Harrison MD 03/02/251906 [1] Past Medical History: Diagnosis Date Abnormal EKG 10/27/2024 SR w/sinus arrhythmia Anxiety Asthma ([facility]) COPD (chronic obstructive pulmonary disease) ([facility] Diabetes mellitus ([facility]) type 2 Mixed hyperlipidemia Sinus arrhythmia [2] Past Surgical History: Procedure Laterality Date REPLACEMENT TOTAL KNEE Left 2013 [3] Family History Problem Relation Name Age of Onset Diabetes Mother Diabetes Father COPD Father CHF Father Asthma Brother [4] Social History Tobacco Use Smoking status: Former Types: Cigarettes Smokeless tobacco: Never Vaping Use Vaping status: Never Used Substance Use Topics Alcohol use: No Drug use: No Jeremie Harrison MD 03/02/251914 * Tiffany Hinds RN - 03/02/2025 5:45 PM CDT PT REPORTS HAD LABS DONE AT [facility] TODAY AND WAS INSTRUCTED TO COME TO ER BECAUSE GLUCOSE WAS OVER 600 AND POTASSIUM LEVEL HIGH.PT CURRENTLY UNDERGOING RADIATION/CHEMO TREATMENTS FOR THROAT CA. documented in this encounter Plan of Treatment Upcoming Encounters Date Type Department Care Team (Late st Contact Info) Description 03/03/2025 10:00 AM CDT Appointment [facility] Radiation Oncology - [place] [address] [place] [address] Lg Sargent MD [address] [place] [address] 08/11/2025 9:45 AM CDT Office Visit [facility] [phone] Jessica Wong MD [address] [place] [address] Pending Results Name Type Priority Associated Diagnoses Date /Time ECG 12 lead EKG-NonRad STAT 03/02/2025 7: 02 PM CDT documented as of this encounter Procedures * The patient is currently admitted. The information in this section might not be complete until the patient is discharged. Procedure Name Priority Date/Time Associated Diagnosis Comments ECG 12-LEAD STAT 03/02/2025 7:02 PM CDT Procedure Note - 03/02/2025 7:02 PM CDTThis note is in progress. [address] 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1960 Requested By: JEREMIE HARRISON Order Number: [id number] Reading MD: Measurements Intervals Montgomery Rate: 93 P: 75 UT: 163 QRS: 54 QRSD: 82 T: 49 QT: 316 QTc: 395 Interpretive Statements SINUS RHYTHM SEPTAL MYOCARDIAL INFARCTION , PROBABLY OLD URINALYSIS STAT 03/02/2025 6:30 PM CDT BETA-HYDROXYBUTYRATE STAT 03/02/2025 6:29 PM CDT BLOOD GAS, VENOUS STAT 03/02/2025 6:2 9 PM CDT COMPREHENSIVE METABOLIC PANEL STAT 03/02/2025 6:29 PM CDT CBC W/DIFF AUTOMATED STAT 03/02/2025 6:29 PM CDT LIPASE STAT 03/02/2025 6:29 PM CDT POCT GLUCOSE - DOCKED DEVICE Routine 03/02/2025 5:42 PM CDT documented in this encounter Results * (ABNORMAL) URINALYSIS (03/02/2025 6:30 PM CDT) COLOR (U) YELLOW 03/02/2025 7:15 PM CDT [facility] TRANSPARENCY CLEAR 03/02/2025 7:15 PM CDT [facility] SPECIFIC GRAVITY (U) 1.005 1.000 - 1.025 03/02/2025 7:15 PM CDT [facility] Comment:LESS THAN OR EQUAL T O U PH 5.0 5.0 - 8.0 03/02/2025 7:15 PM CDT [facility] LEUKOCYTES (U) NEGATIVE NEGATIVE 03/02/2025 7:15 PM CDT [facility] NITRITES NEGATIVE NEGATIVE 03/02/2025 7:15 PM CDT [facility] PROTEIN RANDOM (U) NEGATIVE NEGATIVE 03/02/2025 7:15 PM CDT [facility] GLUCOSE (U) 3+(A) NEGATIVE 03/02/2025 7:15 PM CDT [facility] KETONES MG/DL (U) 3+(A) NEGATIVE 03/02/2025 7:15 PM CDT [facility] UROBILINOGEN 0.2 <1.0 EU/DL 03/02/2025 7:15 PM CDT [facility] BILIRUBIN (U) NEGATIVE NEGATIVE 03/02/2025 7:15 PM CDT [facility] BLOOD (U) NEGATIVE NEGATIVE 03/02/2025 7:15 PM CDT [facility] WBC/HPF 0-5 0 - 5 /HPF 03/02/2025 7:15 PM CDT [facility] RBC/HPF 0-5 0 - 5 /HPF 03/02/2025 7:15 PM CDT [facility] EPI/LPF RARE /LPF 03/02/2025 7:15 PM CDT [facility] BACTERIA (U) 1+ /HPF 03/02/2025 7:15 PM CDT [facility] URINE SPECIMEN OBTAINED BY CLEAN CATCH PROCEDURE / Unknown 03/02/2025 6:30 PM CDT us Jeremie Harrison MD URINE ORDERABLES Final Resu lt [facility] [address] [place] [address], * (ABNORMAL) Blood gas, venous (03/02/2025 6:29 PM CDT) PH VENOUS 7.23(L) 7.32 - 7.43 03/02/2025 6:47 PM CDT [facility] PCO2 VENOUS 33.0 MMHG 03/02/2025 6:47 PM CDT [facility] Comment:NO REFERENCE RANGE H BEEN ESTABLISHED PO2 VENOUS 36.0 MM HG 03/02/2025 6:47 PM CDT [facility] Comment:NO REFERENCE RANGE H BEEN ESTABLISHED TOTAL CO2 VENOUS 14.8(L) 22.0 - 26.0 MMOL/L 03/02/2025 6:47 PM CDT [facility] BASE DEFICIT VENOUS 12.6 MMOL/L 03/02/2025 6:47 PM CDT [facility] Comment:NO REFERENCE RANGE H BEEN ESTABLISHED O2 SAT VENOUS 56 % 03/02/2025 6:47 PM CDT [facility] Comment:NO REFERENCE RANGE H BEEN ESTABLISHED BICARB VENOUS 13.8(L) 22.0 - 29.0 MMOL/L 03/02/2025 6:47 PM CDT [facility] O2 ADMIN VENOUS ROOM AIR 7:03 PM CDT [facility] 03/02/2025 6:29 PM CDT us Jeremie Harrison MD LABORATORY Final Resul t Performing Organization Address [facility] Co de Phone Number [facility] [address] [place] [address], * LIPASE (03/02/2025 6:29 PM CDT) LIPASE 17 16 - 77 UNITS/L 03/02/2025 7:07 PM CDT [facility] 03/02/2025 6:29 PM CDT us Jeremie Harrison MD LABORATORY Final Resul t Performing Organization Address [facility] Co de Phone Number [facility] [address] [place] [address], [place] [phone] * (ABNORMAL) BETA-HYDROXYBUTYRATE (03/02/2025 6:29 PM CDT) BETA-HYDROXYBU TYRATE 5.7(H) 0.0 - 0.3 MMOL/L 03/02/2025 6:49 PM CDT [facility] 03/02/2025 6:29 PM CDT us Jeremie Harrison MD LABORATORY Final Resul t Performing Organization Address City/[facility]/ZIP Co de Phone Number [facility] [address] [place] [address], * (ABNORMAL) COMPREHENSIVE METABOLIC PANEL (03/02/2025 6:29 PM CDT) SODIUM S/P/B 138 136 - 145 MMOL/L 03/02/2025 7:07 PM CDT [facility] POTASSIUM S/P/B 5.5(H) 3.5 - 5.1 MMOL/L 03/02/2025 7:07 PM CDT [facility] CHLORIDE S/P/B 97(L) 98 - 107 MMOL/L 03/02/2025 7:07 PM CDT [facility] CO2 14.5(L) 21.0 - 32.0 MMOL/L 03/02/2025 7:07 PM CDT [facility] GLUCOSE 623(HH) 70 - 99 MG/DL 03/02/2025 7:07 PM CDT [facility] Comment: Critical Result(s) Called to and read back by: JOSE DINERO RN at: 19:05:20 03/02/2025 by BRIGIDA. FASTING GLUCOSE 100 TO 125 MG/DL IS CONSISTENT WITH IMPAIRED FASTING GLUCOSE. FASTING GLUCOSE >125 MG/DL IS CONSISTENT WITH DIABETES. RANDOM GLUCOSE >200 MG/DL WITH HYPERGLYCEMIC SYMPTOMS IS CONSISTENT WITH DIABETES. PER ADA GUIDELINES BUN 55(H) 6 - 24 MG/DL 03/02/2025 7:07 PM CDT [facility] CREATININE S/P/B 1.97(H) 0.70 - 1.30 MG/DL 03/02/2025 7:07 PM CDT [facility] CALCIUM S/P/B 10.0 8.4 - 10.5 MG/DL 03/02/2025 7:07 PM CDT [facility] BILIRUBIN TOTAL S/P/B 0.4 0.2 - 1.0 MG/DL 03/02/2025 7:07 PM CDT [facility] Comment: THIS ASSAY IS NOT RECOMMENDED FOR PATIENTS UNDERGOING TREATMENT WITH ELTROMBOPAG DUE TO THE POTENTIAL FOR FALSELY ELEVATED RESULTS. ALKALINE PHOSPHATASE S/P/B 82 45 - 115 U/L 03/02/2025 7:07 PM CDT [facility] AST 15 15 - 37 U/L 03/02/2025 7:07 PM CDT [facility] ALT 63 16 - 63 U/L 03/02/2025 7:07 PM CDT [facility] TOTAL PROTEIN S/P/B 7.5 6.4 - 8.2 G/DL 03/02/2025 7:07 PM CDT [facility] ALBUMIN S/P/B 3.8 3.4 - 5.0 G/DL 03/02/2025 7:07 PM CDT [facility] ANION GAP 26.5(H) 5.0 - 15.0 MMOL/L 03/02/2025 7:07 PM T [facility] OSMOLALITY (CALC) 330 MOSM/KG 7:07 PM T [facility] Comment:REFERENCE RANGE NOT ESTABLISHED GFR ESTIMATE 37(L) >89 ML/MIN/1. 73 M2 03/02/2025 7:07 PM CDT [facility] GFR NOTES GFR REFERENCE S: 03/02/2025 7:07 PM T [facility] Comment: THE ESTIMATED GFR IS [...] ml/min/1.73 m2 G5,KIDNEY FAILURE: <15 ml/min/1.73 m2 03/02/2025 6:29 PM CDT us Jeremie Harrison MD LABORATORY Final Resul t [facility] [address] [place] [id number], * (ABNORMAL) CBC W/DIFF AUTOMATED (03/02/2025 6:29 PM CDT) WBC 5.94 4.00 - 10.80 x10'3/uL 03/02/2025 6:48 PM CDT [facility] RBC 3.91(L) 4.50 - 6.10 x10'6/uL 03/02/2025 6:48 PM CDT [facility] HGB 12.5(L) 13.0 - 18.0 G/DL 03/02/2025 6:48 PM CDT [facility] HCT 38.9 37.0 - 52.0 % 03/02/2025 6:48 PM CDT [facility] MCV 99.5 78.0 - 100.0 FL 03/02/2025 6:48 PM CDT [facility] MCH 32.0(H) 27.0 - 31.0 PG 03/02/2025 6:48 PM CDT [facility] MCHC 32.1(L) 33.0 - 36.0 G/DL 03/02/2025 6:48 PM CDT [facility] RDW 14.8(H) 11.5 - 14.5 % 03/02/2025 6:48 PM CDT [facility] PLT 130(L) 150 - 350 x10'3/uL 03/02/2025 6:48 PM CDT [facility] MPV 9.9 7.4 - 10.4 FL 03/02/2025 6:48 PM CDT [facility] CBC COMMENT NORMAL REFERENCE RANGE NOT ESTABLISHED FOR THE PROPORTIONAL LEUKOCYTE DIFFERENTIAL. 03/02/2025 6:48 PM CDT [facility] NEUTROPHILS % 88.1 % 03/02/2025 6:48 PM CDT [facility] LYMPHOCYTES % 1.9 % 03/02/2025 6:48 PM CDT [facility] MONOCYTES % 9.6 % 03/02/2025 6:48 PM CDT [facility] EOSINOPHILS % 0.0 % 03/02/2025 6:48 PM CDT [facility] BASOPHILS % 0.2 % 03/02/2025 6:48 PM CDT [facility] IMMATURE GRANS % 0.2 % 03/02/20 6:48 PM CDT [facility] NRBC % 0.0 % 03/02/2025 6:48 PM CDT [facility] ABS. NEUTROPHILS 5.24 1.60 - 8.30 x10'3/uL 03/02/2025 6:48 PM CDT [facility] ABS. LYMPHOCYTES 0.11(L) 0.80 - 4.70 x10'3/uL 03/02/2025 6:48 PM CDT [facility] ABS. MONOCYTES 0.57 0.00 - 1.50 x10'3/uL 03/02/2025 6:48 PM CDT [facility] ABS. EOSINOPHILS 0.00 0.00 - 0.40 x10'3/uL 03/02/2025 6:48 PM CDT [facility] ABS. BASOPHILS 0.01 0.00 - 0.20 x10'3/uL 03/02/2025 6:48 PM CDT [facility] ABS. IMMATURE GRANULOCYTES 0.01 0.00 - 0.03 x10'3/uL 03/02/2025 6:48 PM CDT [facility] ABS. NUCLEATED RBC'S 0.00 0.00 - 0.01 x10'3/uL 03/02/2025 6:48 PM CDT [facility] 03/02/2025 6:29 PM CDT us Jeremie Harrison MD LABORATORY Final Resul t [facility] [address] [place] [address], * (ABNORMAL) POCT glucose (03/02/2025 5:42 PM CDT) GLUCOSE POC >500(H) 70 - 99 MG/DL 03/02/2025 5:44 PM CDT [facility] 03/02/2025 5:42 PM CDT us Attending Physician Emergency MD POCT ORDERABLES - DEVICE Final Result [facility] [address] [place] [address], documented in this encounter Visit Diagnoses Diagnosis DKA (diabetic ketoacidosis) ([facility])- Primary Type II or unspecified type diabetes mellitus with ketoacidosis, not stated as uncontrolled Tachycardia Tachycardia, unspecified documented in this encounter Administered Medications Active Administered Medications - up to 3 most recent administrations Medication Order MAR Action Action Date Dose Rate Site dextrose 10 % bolus infusion 125-250 mL 125-250 mL, Intravenous, Administer over 15 Minutes, As needed, Low blood sugar, Starting on Fri03/02/25 at 190, Until Discontinued, Use in conjunction with DKA insulin and fluid orders. Administer slowly through a Y-site with fluid #2 to permit dilution. Glucose 70-100 - give 125 mL (12.5 g) Glucose below 70 - give 250 mL (25 g) When insulin infusion is discontinued, discontinue this order and use standard hypoglycemia standing orders. glucagon injection 1 mg 1 mg, Intramuscular, Once as needed, Other, Low blood sugar, 1 dose, Starting on Fri03/02/25 at 1909, Until Discontinued, If patient is verbally UNresponsive and no IV access with blood glucose less than 70 mg/dL. Do NOT repeat administration. insulin regular (MYXREDLIN) 1 unit/mL in NS 100 mL infusion (PREMIX) 0.02-0.1 Units/kg/hr 54.4 kg (1.088-5.44 mL/hr, rounded to 1.09-5.44 mL/hr), Intravenous, Continuous, Starting on Fri03/02/25 at 1915, Until Discontinued, Adult DKA Insulin Infusion Calculator Use with DKA Fluid orders. If not ordered, contact MD Do NOT start insulin if potassium below 3.3 Notify provider when anion gap normalizes and bicarb greater than 15. *High Alert* Inactive Administered Medications - up to 3 most recent administrations Medication Order MAR Action Action Date Dose Rate Site lactated ringers bolus infusion 2,000 mL 2,000 mL, Intravenous, Administer over 15 Minutes, Once, 1 dose, On Fri03/02/25 at 1815 New Bag 03/02/2025 6:37 PM CDT 2,000 mLs 8000 mL/hr documented in this encounter Active and Recently Administered Medications Times are shown in CDT. Scheduled Medication Order 02/28/2025 03/01/2025 03/02/2025 lactated ringers bolus infusion 2,000 mL (COMPLETED) 2,000 mL, Intravenous, Administer over 15 Minutes, Once, 1 dose, On Fri03/02/25 at 1815 1837 (New Bag - Prov ider: Myla Farnsworth, Nurse Pasteurizer Helper II) Continuous Medication Order 02/28/2025 03/01/2025 03/02/2025 insulin regular (MYXREDLIN) 1 unit/mL in NS 100 mL infusion (PREMIX) 0.02-0.1 Units/kg/hr 54.4 kg (1.088-5.44 mL/hr, rounded to 1.09-5.44 mL/hr), Intravenous, Continuous, Starting on Fri03/02/25 at 1915, Until Discontinued, Adult DKA Insulin Infusion Calculator Use with DKA Fluid orders. If not ordered, contact MD Do NOT start insulin if potassium below 3.3 Notify provider when anion gap normalizes and bicarb greater than 15. *High Alert* 191 (Due) PRN Medication Order 02/28/2025 03/01/2025 03/02/2025 dextrose 10 % bolus infusion 125-250 mL 125-250 mL, Intravenous, Administer over 15 Minutes, As needed, Low blood sugar, Starting on Fri03/02/25 at 1909, Until Discontinued, Use in conjunction with DKA insulin and fluid orders. Administer slowly through a Y-site with fluid #2 to permit dilution. Glucose 70-100 - give 125 mL (12.5 g) Glucose below 70 - give 250 mL (25 g) When insulin infusion is discontinued, discontinue this order and use standard hypoglycemia standing orders. glucagon injection 1 mg 1 mg, Intramuscular, Once as needed, Other, Low blood sugar, 1 dose, Starting on Fri03/02/25 at 1909, Until Discontinued, If patient is verbally UNresponsive and no IV access with blood glucose less than 70 mg/dL. Do NOT repeat administration. documented in this encounter Care Teams Central Melt Specialist Relationship Specialty Start Date End Date Sumit Suárez MD [address] [place] [phone] PCP - General FAMILY PRACTICE 04/09/21 Jessica Wong MD [address] [place] [address] Consulting Physician CARDIOVASCULAR DISEASE 12/01/24 documented as of this encounter
--- OUTSIDE RECORDS SUMMARY | 2025-03-02 19:16 | XMS_ITS | Encounter Summary ---
Author Organization [facility] Address [address] [place] [address] Care Team Providers Care Practical Nursing Instructor Name Role Phone Sumit Suárez MD Primary Care Provider [phone] Jessica Wong MD Unavailable Encounter Details Date Type Department Care Team (Latest Contact Info) Description 03/01/2025 Travel Social History Tobacco Use Types Packs/Day [...] Info) Description 03/03/2025 10:00 AM CDT Appointment [facility] Radiation Oncology - [place] [address] [place] [address] Lg Sargent MD [address] [place] [address] 08/11/2025 9:45 AM CDT [facility] [id number] [place] [phone] Jessica Wong MD [address] [place] [address] documented as of this encounter Visit Diagnoses Not on filedocumented in this encounter Care Teams Practical Nursing Instructor Relationship Specialty Start Date End Date Sumit Suárez MD [address] [place] [address] PCP - General FAMILY PRACTICE 04/09/21 Jessica Wong MD [address] [place] [address] Consulting Physician CARDIOVASCULAR DISEASE 12/01/24 documented as of this encounter
--- OUTSIDE RECORDS SUMMARY | 2025-03-02 19:16 | XMS_ITS | Clinical Summary ---
Author Organization [facility] Address [address] [place] [address] Care Team Providers Care Smasher Hand Name Role Phone Sumit Suárez MD Primary Care Provider [phone] Jessica Wong MD Unavailable Allergies Active Allergy [...] Hyperglycemia due to type 2 diabetes mellitus CAP (community acquired pneumonia) 02/27/2019 COPD (chronic obstructive pulmonary disease) Hyperlipemia 02/27/2019 Encounters Date Type Department Care Team Description 03/02/2025 6:03 PM CDT - Present Emergency [facility] [address] [place] [address] Renetta Harrison MD Abnormal Lab Results 03/02/2025 2:14 PM CDT Hospital Encounter [facility] Radiation [address] [address] Lg Sargent MD 03/02/2025 Travel 03/01/2025 3:30 PM CDT Hospital Encounter [facility] Radiation [address] [address] Lg Sargent MD 03/01/2025 Travel 02/28/2025 3:30 PM CDT - 02/28/2025 11:59 PM CDT Hospital Encounter [address] [address] Lg Sargent MD Discharge Disposition: Home or Self Care (Routine Discharge) 02/28/2025 Travel 02/25/2025 1:30 PM CDT - 02/25/2025 11:59 PM CDT Hospital Encounter [address] [address] Lg Sargent MD Discharge Disposition: Home or Self Care (Routine Discharge) 02/25/2025 Travel 02/24/2025 3:25 PM CDT - 02/24/2025 11:59 PM CDT Hospital Encounter [address] [address] Lg Sargent MD Discharge Disposition: Home or Self Care (Routine Discharge) 02/24/2025 3:25 PM CDT - 02/24/2025 11:59 PM CDT Hospital Encounter [address] [address] Lg Sargent MD Discharge Disposition: Home or Self Care (Routine Discharge) 02/24/2025 Travel 02/23/2025 3:16 PM CDT - 02/23/2025 11:59 PM CDT Hospital Encounter [address] [address] Lg Sargent MD Discharge Disposition: Home or Self Care (Routine Discharge) 02/23/2025 Travel 02/22/2025 11:36 AM CDT - 02/22/2025 11:59 PM CDT Hospital Encounter [address] [address] gL Sargent MD Discharge Disposition: Home or Self Care (Routine Discharge) 02/22/2025 Travel 02/21/2025 3:11 PM CDT - 02/21/2025 11:59 PM CDT Hospital Encounter [address] [address] Lg Sargent MD Discharge Disposition: Home or Self Care (Routine Discharge) 02/21/2025 Travel 02/18/2025 11:23 AM CDT - 02/18/2025 11:59 PM CDT Hospital Encounter [address] [address] Lg Sargent MD Discharge Disposition: Home or Self Care (Routine Discharge) 02/18/2025 Travel 02/17/2025 11:23 AM CDT - 02/17/2025 11:59 PM CDT Hospital Encounter [address] [address] Lg Sargent MD Discharge Disposition: Home or Self Care (Routine Discharge) 02/17/2025 11:23 AM CDT - 02/17/2025 11:59 PM CDT Hospital Encounter [address] [address] Lg Sargent MD Discharge Disposition: Home or Self Care (Routine Discharge) 02/17/2025 Travel 02/16/2025 3:23 PM CDT - 02/16/2025 11:59 PM CDT Hospital Encounter [address] [address] Lg Sargent MD Discharge Disposition: Home or Self Care (Routine Discharge) 02/16/2025 Travel 02/14/2025 3:30 PM CDT - 02/14/2025 11:59 PM CDT Hospital Encounter [address] [address] Lg Sargent MD Discharge Disposition: Home or Self Care (Routine Discharge) 02/14/2025 Travel 02/11/2025 4:00 PM CDT - 02/11/2025 11:59 PM CDT Hospital Encounter [address] [address] Lg Sargent MD Discharge Disposition: Home or Self Care (Routine Discharge) 02/11/2025 3:30 PM CDT - 02/11/2025 3:59 PM CDT Hospital Encounter [address] [address] Lg Sargent MD Discharge Disposition: Home or Self Care (Routine Discharge) 02/11/2025 Travel 02/10/2025 2:27 PM CDT - 02/10/2025 11:59 PM CDT Hospital Encounter [address] [address] Lg Sargent MD Discharge Disposition: Home or Self Care (Routine Discharge) 02/10/2025 [facility] [address] [place] [address] Jessica Wong MD Schedule Test; Appointment Reminder 02/10/2025 Travel 02/09/2025 3:23 PM CDT - 02/09/2025 11:59 PM CDT Hospital Encounter [address] [address] Lg Sargent MD Discharge Disposition: Home or Self Care (Routine Discharge) 02/09/2025 Travel 02/08/2025 11:26 AM CDT - 02/08/2025 11:59 PM CDT Hospital Encounter [address] [address] Lg Sargent MD Discharge Disposition: Home or Self Care (Routine Discharge) 02/08/2025 Travel 02/07/2025 3:30 PM CDT - 02/07/2025 11:59 PM CDT Hospital Encounter [address] [address] Lg Sargent MD Discharge Disposition: Home or Self Care (Routine Discharge) 02/07/2025 Travel 02/04/2025 3:30 PM CDT - 02/04/2025 11:59 PM CDT Hospital Encounter [address] [address] Lg Sargent MD Discharge Disposition: Home or Self Care (Routine Discharge) 02/04/2025 Travel 02/03/2025 11:21 AM CDT - 02/03/2025 11:59 PM CDT Hospital Encounter [address] [address] Lg Sargent MD Discharge Disposition: Home or Self Care (Routine Discharge) 02/03/2025 Travel 02/02/2025 11:40 AM CDT - 02/02/2025 11:59 PM CDT Hospital Encounter [address] [address] Lg Sargent MD Discharge Disposition: Home or Self Care (Routine Discharge) 02/01/2025 3:54 PM CDT - 02/01/2025 11:59 PM CDT Hospital Encounter [address] [address] Lg Sargent MD Discharge Disposition: Home or Self Care (Routine Discharge) 02/01/2025 3:30 PM CDT - 02/01/2025 3:53 PM CDT Hospital Encounter [address] [address] Lg Sargent MD Discharge Disposition: Home or Self Care (Routine Discharge) 02/01/2025 Travel 01/31/2025 3:30 PM CDT - 01/31/2025 11:59 PM CDT Hospital Encounter [address] [address] Lg Sargent MD Discharge Disposition: Home or Self Care (Routine Discharge) 01/31/2025 Travel 01/28/2025 3:30 PM CDT - 01/28/2025 11:59 PM CDT Hospital Encounter [address] [address] Lg Sargent MD Discharge Disposition: Home or Self Care (Routine Discharge) 01/28/2025 Travel 01/27/2025 10:30 AM CDT - 01/27/2025 11:59 PM CDT Hospital Encounter [address] [address] Lg Sargent MD Discharge Disposition: Home or Self Care (Routine Discharge) 01/27/2025 10:10 AM CDT - 01/27/2025 10:29 AM CDT Hospital Encounter [address] [address] Lg Sargent MD Discharge Disposition: Home or Self Care (Routine Discharge) 01/26/2025 3:30 PM CDT - 01/26/2025 11:59 PM CDT Hospital Encounter [address] [address] Lg Sargent MD Discharge Disposition: Home or Self Care (Routine Discharge) 01/26/2025 Travel 01/07/2025 11:28 AM CDT - 01/07/2025 11:59 PM CDT Hospital Encounter [facility] [address] [place] [address] Yaakov Frazier MD Discharge Disposition: Home or Self Care (Routine Discharge) 01/07/2025 Travel 12/03/2024 Telephone [facility] [address] [place] [address] Jessica Wong MD Question 12/02/2024 12:30 PM CDT Office Visit [facility] [address] [phone] Jessica Wong MD Heart Problem 12/02/2024 Scan [facility] [address] [place] [address] Scanned, Doc Pccl 12/01/2024 Travel 11/30/2024 Orders Only [facility] [address] [place] [address] Jessica Wong MD from Last 3 Months Family History Medical [...] Mass Index 19.97 03/02/2025 5:43 PM CDT Plan of Treatment Upcoming Encounters Date Type Department Care Team (Late st Contact Info) Description 03/03/2025 10:00 AM CDT Appointment [facility] Radiation Oncology - [place] [address] [place] [address] Lg Sargent MD [address] [place] [address] 08/11/2025 9:45 AM CDT Office Visit [facility] [phone] Jessica Wong MD [address] [place] [address] Health Maintenance Due Date Last Done Comments [...] Completed 01/07/2025, 05/13, 05/09/2021, Additional history exists Hepatitis A Vaccines Aged Out No long er eligible based on patient's age to complete this topic Meningococcal B Vaccine Aged Out No l onger eligible based on patient's age to complete this topic Meningococcal Vaccine Aged Out No ashanti halima eligible based on patient's age to complete this topic RSV Immunizations Under 20 Months Aged Out No longer eligible based on patient's age to complete this topic Procedures * The patient is currently admitted. The information in this section might not be complete until the patient is discharged. Procedure Name Priority Date/Time Associated Diagnosis Comments ECG 12-LEAD STAT 03/02/2025 7:02 PM CDT Procedure Note - 03/02/2025 7:02 PM CDTThis note is in progress. [address] 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: : 1960 Requested By: RENETTA HARRISON Order Number: [id number] Reading MD: Measurements Intervals [place] Rate: 93 P: 75 NV: 163 QRS: 54 QRSD: 82 T: 49 QT: 316 QTc: 395 Interpretive Statements SINUS RHYTHM SEPTAL MYOCARDIAL INFARCTION , PROBABLY OLD URINALYSIS STAT 03/02/2025 6:30 PM CDT BLOOD GAS, VENOUS STAT 03/02/2025 6:2 9 PM CDT LIPASE STAT 03/02/2025 6:29 PM CDT BETA-HYDROXYBUTYRATE STAT 03/02/2025 6:29 PM CDT COMPREHENSIVE METABOLIC PANEL STAT 03/02/2025 6:29 PM CDT CBC W/DIFF AUTOMATED STAT 03/02/2025 6:29 PM CDT POCT GLUCOSE - DOCKED DEVICE Routine 03/02/2025 5:42 PM CDT PET EYE TO THIGH [id number] PATIENCE 01/07/2025 1:49 PM CDT 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) ELECTROCARDIOGRAM, TRACING Routine 12/02/2024 Essential (primary) hypertension HEMOGLOBIN, GLYCOSYLATED Routine 11/16/2024 7:42 AM CDT 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) Thyroid disorder screen from Last 3 Months or Most Recently Relevant to Health Maintenance Results * (ABNORMAL) URINALYSIS (03/02/2025 6:30 PM CDT) COLOR (U) YELLOW 03/02/2025 7:15 PM CDT [facility] TRANSPARENCY CLEAR 03/02/2025 7:15 PM CDT [facility] SPECIFIC GRAVITY (U) 1.005 1.000 - 1.025 03/02/2025 7:15 PM CDT [facility] Comment:LESS THAN OR EQUAL T O U PH 5.0 5.0 - 8.0 03/02/2025 7:15 PM CDT [facility] LEUKOCYTES (U) NEGATIVE NEGATIVE 03/02/2025 7:15 PM CDT [facility] NITRITES NEGATIVE NEGATIVE 03/02/2025 7:15 PM CDT [facility] PROTEIN RANDOM (U) NEGATIVE NEGATIVE 03/02/2025 7:15 PM CDT [facility] GLUCOSE (U) 3+(A) NEGATIVE 03/02/2025 7:15 PM CDT [facility] KETONES MG/DL (U) 3+(A) NEGATIVE 03/02/2025 7:15 PM CDT [facility] UROBILINOGEN 0.2 <1.0 EU/DL 03/02/2025 7:15 PM CDT [facility] BILIRUBIN (U) NEGATIVE NEGATIVE 03/02/2025 7:15 PM CDT [facility] BLOOD (U) NEGATIVE NEGATIVE 03/02/2025 7:15 PM CDT [facility] WBC/HPF 0-5 0 - 5 /HPF 03/02/2025 7:15 PM CDT [facility] RBC/HPF 0-5 0 - 5 /HPF 03/02/2025 7:15 PM CDT [facility] EPI/LPF RARE /LPF 03/02/2025 7:15 PM CDT [facility] BACTERIA (U) 1+ /HPF 03/02/2025 7:15 PM CDT [facility] URINE SPECIMEN OBTAINED BY CLEAN CATCH PROCEDURE / Unknown 03/02/2025 6:30 PM CDT us Renetta Harrison MD URINE ORDERABLES Final Resu lt [facility] [address] [place] [address], * (ABNORMAL) BETA-HYDROXYBUTYRATE (03/02/2025 6:29 PM CDT) BETA-HYDROXYBU TYRATE 5.7(H) 0.0 - 0.3 MMOL/L 03/02/2025 6:49 PM CDT [facility] 03/02/2025 6:29 PM CDT us Renetta Harrison MD LABORATORY Final Resul t Performing Organization Address [facility]/ZIP Co de Phone Number [facility] [address] [place] [address], [place] [phone] * (ABNORMAL) Blood gas, venous (03/02/2025 6:29 PM CDT) PH VENOUS 7.23(L) 7.32 - 7.43 03/02/2025 6:47 PM CDT [facility] PCO2 VENOUS 33.0 MMHG 03/02/2025 6:47 PM CDT [facility] Comment:NO REFERENCE RANGE H BEEN ESTABLISHED PO2 VENOUS 36.0 MM HG 03/02/2025 6:47 PM CDT [facility] Comment:NO REFERENCE RANGE H BEEN ESTABLISHED TOTAL CO2 VENOUS 14.8(L) 22.0 - 26.0 MMOL/L 03/02/2025 6:47 PM CDT [facility] BASE DEFICIT VENOUS 12.6 MMOL/L 03/02/2025 6:47 PM CDT [facility] Comment:NO REFERENCE RANGE H BEEN ESTABLISHED O2 SAT VENOUS 56 % 03/02/2025 6:47 PM CDT [facility] Comment:NO REFERENCE RANGE H BEEN ESTABLISHED BICARB VENOUS 13.8(L) 22.0 - 29.0 MMOL/L 03/02/2025 6:47 PM CDT [facility] O2 ADMIN VENOUS ROOM AIR 7:03 PM CDT [facility] 03/02/2025 6:29 PM CDT us Renetta Harrison MD LABORATORY Final Resul t [facility] [address] [address], * (ABNORMAL) COMPREHENSIVE METABOLIC PANEL (03/02/2025 6:29 PM CDT) SODIUM S/P/B 138 136 - 145 MMOL/L 03/02/2025 7:07 PM CDT [facility] POTASSIUM S/P/B 5.5(H) 3.5 - 5.1 MMOL/L 03/02/2025 7:07 PM CDT [facility] CHLORIDE S/P/B 97(L) 98 - 107 MMOL/L 03/02/2025 7:07 PM CDT [facility] CO2 14.5(L) 21.0 - 32.0 MMOL/L 03/02/2025 7:07 PM CDT [facility] GLUCOSE 623(HH) 70 - 99 MG/DL 03/02/2025 7:07 PM CDT [facility] Comment: Critical Result(s) Called to and read back by: JOSE DINERO RN at: 19:05:20 03/02/2025 by BRIGIDA. FASTING GLUCOSE 100 TO 125 MG/DL IS CONSISTENT WITH IMPAIRED FASTING GLUCOSE. FASTING GLUCOSE >125 MG/DL IS CONSISTENT WITH DIABETES. RANDOM GLUCOSE >200 MG/DL WITH HYPERGLYCEMIC SYMPTOMS IS CONSISTENT WITH DIABETES. PER ADA GUIDELINES BUN 55(H) 6 - 24 MG/DL 03/02/2025 7:07 PM T [facility] CREATININE S/P/B 1.97(H) 0.70 - 1.30 MG/DL 03/02/2025 7:07 PM [facility] CALCIUM S/P/B 10.0 8.4 - 10.5 MG/DL 03/02/2025 7:07 PM [facility] BILIRUBIN TOTAL S/P/B 0.4 0.2 - 1.0 MG/DL 03/02/2025 7:07 PM [facility] Comment: THIS ASSAY IS NOT RECOMMENDED FOR PATIENTS UNDERGOING TREATMENT WITH ELTROMBOPAG DUE TO THE POTENTIAL FOR FALSELY ELEVATED RESULTS. ALKALINE PHOSPHATASE S/P/B 82 45 - 115 U/L 03/02/2025 7:07 PM [facility] AST 15 15 - 37 U/L 03/02/2025 7:07 PM [facility] ALT 63 16 - 63 U/L 03/02/2025 7:07 PM [facility] TOTAL PROTEIN S/P/B 7.5 6.4 - 8.2 G/DL 03/02/2025 7:07 PM [facility] ALBUMIN S/P/B 3.8 3.4 - 5.0 G/DL 03/02/2025 7:07 PM [facility] ANION GAP 26.5(H) 5.0 - 15.0 MMOL/L 03/02/2025 7:07 PM [facility] OSMOLALITY (CALC) 330 MOSM/KG 025 7:07 PM [facility] Comment:REFERENCE RANGE NOT ESTABLISHED GFR ESTIMATE 37(L) >89 ML/MIN/1. 73 M2 03/02/2025 7:07 PM [facility] GFR NOTES GFR REFERENCE S: 03/02/2025 7:07 PM CDT [facility] Comment: THE ESTIMATED GFR [...] ml/min/1.73 m2 03/02/2025 6:29 PM CDT us Renetta Harrison MD LABORATORY Final Resul t [facility] [address] [place] [address], * (ABNORMAL) CBC W/DIFF AUTOMATED (03/02/2025 6:29 PM CDT) WBC 5.94 4.00 - 10.80 x10'3/uL 03/02/2025 6:48 PM CDT [facility] RBC 3.91(L) 4.50 - 6.10 x10'6/uL 03/02/2025 6:48 PM CDT [facility] HGB 12.5(L) 13.0 - 18.0 G/DL 03/02/2025 6:48 PM CDT [facility] HCT 38.9 37.0 - 52.0 % 03/02/2025 6:48 PM CDT [facility] MCV 99.5 78.0 - 100.0 FL 03/02/2025 6:48 PM CDT [facility] MCH 32.0(H) 27.0 - 31.0 PG 03/02/2025 6:48 PM CDT [facility] MCHC 32.1(L) 33.0 - 36.0 G/DL 03/02/2025 6:48 PM CDT [facility] RDW 14.8(H) 11.5 - 14.5 % 03/02/2025 6:48 PM CDT [facility] PLT 130(L) 150 - 350 x10'3/uL 03/02/2025 6:48 PM CDT [facility] MPV 9.9 7.4 - 10.4 FL 03/02/2025 6:48 PM CDT [facility] CBC COMMENT NORMAL REFERENCE RANGE NOT ESTABLISHED FOR THE PROPORTIONAL LEUKOCYTE DIFFERENTIAL. 03/02/2025 6:48 PM CDT [facility] NEUTROPHILS % 88.1 % 03/02/2025 6:48 PM CDT [facility] LYMPHOCYTES % 1.9 % 03/02/2025 6:48 PM CDT [facility] MONOCYTES % 9.6 % 03/02/2025 6:48 PM CDT [facility] EOSINOPHILS % 0.0 % 03/02/2025 6:48 PM CDT [facility] BASOPHILS % 0.2 % 03/02/2025 6:48 PM CDT [facility] IMMATURE GRANS % 0.2 % 03/02/20 6:48 PM CDT [facility] NRBC % 0.0 % 03/02/2025 6:48 PM CDT [facility] ABS. NEUTROPHILS 5.24 1.60 - 8.30 x10'3/uL 03/02/2025 6:48 PM CDT [facility] ABS. LYMPHOCYTES 0.11(L) 0.80 - 4.70 x10'3/uL 03/02/2025 6:48 PM CDT [facility] ABS. MONOCYTES 0.57 0.00 - 1.50 x10'3/uL 03/02/2025 6:48 PM CDT [facility] ABS. EOSINOPHILS 0.00 0.00 - 0.40 x10'3/uL 03/02/2025 6:48 PM CDT [facility] ABS. BASOPHILS 0.01 0.00 - 0.20 x10'3/uL 03/02/2025 6:48 PM CDT [facility] ABS. IMMATURE GRANULOCYTES 0.01 0.00 - 0.03 x10'3/uL 03/02/2025 6:48 PM CDT [facility] ABS. NUCLEATED RBC'S 0.00 0.00 - 0.01 x10'3/uL 03/02/2025 6:48 PM CDT [facility] 03/02/2025 6:29 PM CDT Renetta Harrison MD LABORATORY Final Resul t Performing Organization Address [facility] Co de Phone Number [facility] [address] [place] [address], * LIPASE (03/02/2025 6:29 PM CDT) LIPASE 17 16 - 77 UNITS/L 03/02/2025 7:07 PM CDT [facility] 03/02/2025 6:29 PM CDT Renetta Harrison MD LABORATORY Final Resul t Performing Organization Address [facility] [place] [address], * (ABNORMAL) POCT glucose (03/02/2025 5:42 PM CDT) GLUCOSE POC >500(H) 70 - 99 MG/DL 03/02/2025 5:44 PM CDT [facility] 03/02/2025 5:42 PM CDT Attending Physician Emergency POCT ORDERABLES - DEVICE Final Result Performing Organization Address [facility] Co de Phone Number [facility] [address] [place] [address], * PET EYE TO THIGH [id number] (01/07/2025 1:49 PM CDT) Anatomical Region Laterality [...] 2:33 PM Narrative 01/07/2025 3:43 PM CDT [address] [address] EXAMINATION: FDG PET/CT HISTORY: Reason for examination [...] Procedure Note Zbigniew Ferrell MD - 01/07/2025 [place] [address] EXAMINATION: FDG PET/CT HISTORY: Reason for examination [...] By: Zbigniew Ferrell MD, 01/07/2025 2:33 PM Result [facility] Yaakov Frazier MD PET Final Result * NOT [facility] - ELECTROCARDIOGRAM, TRACING (12/02/2024) Jessica Wong MD PROCEDURES-UNRESULTED Final Resu lt * (ABNORMAL) HEMOGLOBIN, GLYCOSYLATED (11/16/2024 7:42 AM CDT) HGB A1C 9.0(H) <5.7 % 11/16/2024 1:28 PM CDT [facility] ESTIMATED AVG GLUCOSE 212(H) 74 - 114 MG/DL 11/16/2024 1:28 PM CDT [facility] 11/16/2024 7:42 AM CDT Yaakov Frazier MD LABORATORY Final Result [facility] [address] [place] [address], [id number] from Last 3 Months or Most Recently Relevant to Health Maintenance Insurance [facility] MEDICARE Advance Directives * Full Code (Latest Code Status on File) Date Activated Date Inactivated Comments 02/27/2019 4:44 PM 02/28/2019 1:51 PM Care Teams Smasher Hand Relationship Specialty Start Date End Date Sumit Suárez MD [address] [place] [address] PCP - General FAMILY PRACTICE 04/09/21 Jessica Wong MD [address] [place] [address] Consulting Physician CARDIOVASCULAR DISEASE 12/01/24
--- OUTSIDE RECORDS SUMMARY | 2025-03-02 19:16 | XMS_ITS | Encounter Summary ---
Author Organization [facility] Address [facility] [place] [address] Care Team Providers Care Processing Inspector Name Role Phone Sumit Suárez MD Primary Care Provider [phone] Jessica Wong MD Unavailable Encounter Details Date Type Department Care Team (Latest Contact Info) Description 03/02/2025 Travel Social History Tobacco Use Types Packs/Day [...] PM CDT Magalis Hinds RN Active * [place] Suicide Severity Rating Scale (Screener/Recent Self-Report) Question Answer Date of Assessment Author Status 1. Wish to be (Past 1 Month) No 03/02/2025 5:57 PM CDT Tiffany Hinds, KAMINI Acti ve 2. Non-Specific Active Suicidal Thoughts [...] Info) Description 03/03/2025 10:00 AM CDT Appointment [facility] Radiation Oncology - [place] [address] [place] [address] Lg Sargent MD [address] [place] [address] 08/11/2025 9:45 AM CDT Office Visit [facility] [phone] Jessica Wong MD [address] [place] [address] documented as of this encounter Visit Diagnoses Not on filedocumented in this encounter Care Teams Processing Inspector Relationship Specialty Start Date End Date Sumit Suárez MD [address] [place] [phone] PCP - General FAMILY PRACTICE 04/09/21 Jessica Wong MD [address] [place] [address] Consulting Physician CARDIOVASCULAR DISEASE 12/01/24 documented as of this encounter
--- OUTSIDE RECORDS SUMMARY | 2025-03-02 19:16 | XMS_ITS | Encounter Summary ---
Author Organization [facility] Address [address] [place] [address] Care Team Providers Care Patient Accounts Coordinator Name Role Phone Trevin Hobbs MD Primary Care Provider [phone] Sumit Suárez MD Primary Care Provider Jessica Wong MD Unavailable Encounter Details Date Type Department Care Team (Late Contact Info) Description 10/17/2018 Abstract [facility] CONVERSION [address] [place] [address] , Generic Conversion, Social History Tobacco Use [...] Department Care Team (Late Contact Info) Description 03/03/2025 10:00 AM CDT Appointment [facility] Radiation Oncology - [place] [address] [place] [address] Lg Sargent MD [address] [place] [address] 08/11/2025 9:45 AM CDT Office Visit [facility] [address] [phone] Jessica Wong MD [address] [place] [address] documented as of this encounter Visit Diagnoses Not on filedocumented in this encounter Additional Health Concerns Infection Onset Date Last Indicated Resolved Time COVID-19 Rule Out 07/23/2021 07/23/2021 07/23/2021 10:52 PM CDT COVID-19 Confirmed 07/23/2021 07/23/2021 12:33 AM CDT documented as of this encounter Care Teams Patient Accounts Coordinator Relationship Specialty Start Date End Date Trevin Hobbs MD [address] [place] [phone] PCP - General FAMILY PRACTICE 02/27/19 04/08/21 Sumit Suárez MD [address] [place] [phone] PCP - General FAMILY PRACTICE 04/09/21 Jessica Wong MD [address] [place] [address] Consulting Physician CARDIOVASCULAR DISEASE 12/01/24 documented as of this encounter
--- OUTSIDE RECORDS SUMMARY | 2025-03-02 19:16 | XMS_ITS | Encounter Summary ---
Author Organization [facility] Address [facility] [place] [address] Care Team Providers Care Tire Duster Name Role Phone Trevin Hobbs MD Primary Care Provider [phone] Sumit Suárez MD Primary Care Provider [phone] Jessica Wong MD Unavailable Encounter Details Date Type Department Care Team (Late Contact Info) Description 07/26/2017 Abstract [facility] CONVERSION [address] [place] [address] , Generic ConversionMD Social History Tobacco Use [...] Info) Description 03/03/2025 10:00 AM CDT Appointment [facility] Radiation Oncology - [place] [address] [place] [address] Lg Sargent MD [address] [place] [address] 08/11/2025 9:45 AM CDT Office Visit [facility] [address] [phone] Jessica Wong MD [address] [place] [address] documented as of this encounter Visit Diagnoses Not on filedocumented in this encounter Additional Health Concerns Infection Onset Date Last Indicated Resolved Time COVID-19 Rule Out 07/23/2021 07/23/2021 07/23/2021 10:52 PM CDT COVID-19 Confirmed 07/23/2021 07/23/2021 12:33 AM CDT documented as of this encounter Care Teams Tire Duster Relationship Specialty Start Date End Date Trevin Hobbs MD [address] [place] [phone] PCP - General FAMILY PRACTICE 02/27/19 04/08/21 Sumit Suárez MD [address] [place] [phone] PCP - General FAMILY PRACTICE 04/09/21 Jessica Wong MD [address] [place] [address] Consulting Physician CARDIOVASCULAR DISEASE 12/01/24 documented as of this encounter
== END 2025-03-02 14:55 | disposition home or self-care (01) ==
PROVIDERS: PCP Family Medicine; Visit Provider Internal Medicine Hematology & Oncology
DX: C13.9 Malignant neoplasm of hypopharynx, unspecified (principal); R53.83 Other fatigue
CPT/HCPCS: 36415; 80053; 82533; 83735; 84443; 85027

== ENCOUNTER 2025-03-23 15:29 | Outpatient (CLI) | payer MEDICARE, SELFPAY ==
[2025-03-23 15:42] LABS: Hematocrit 31.9 % (37.0-46.0); Hemoglobin 10.5 g/dL (12.4-15.3); Immature Granulocyte Percent A 0.3 % (0.0-0.0); Lymphocytes Absolute Auto 0.40 K/mm3 (1.10-4.50); Mean Corpuscular HGB Conc 32.9 g/dL (32-36); Mean Corpuscular Hemoglobin 33.0 pg (27.0-31.0); Mean Corpuscular Volume 100.3 fL (78.0-102.0); Nucleated Red Blood Cells Absolute Auto 0.00 K/mm3 (0.00-0.00); Nucleated Red Blood Cells Perc 0.0 % (0-0.0); Platelet Count Result 196 K/mm3 (150-420); Red Blood Count 3.18 M/mm3 (4.70-6.10); White Blood Count 4.0 K/mm3 (4.8-10.8)
[2025-03-23 15:59] LABS: Alanine Aminotransferase 24 U/L (6-50); Albumin Level 3.8 g/dL (3.5-5.1); Alkaline Phosphatase 65 U/L (38-126); Anion Gap 6 mmol/L (4-12); Aspartate Amino Transferase 26 U/L (17-59); Blood Urea Nitrogen 22 mg/dL (9-20); Calcium 8.6 mg/dL (8.4-10.2); Carbon Dioxide 30 mmol/L (22-30); Chloride 104 mmol/L (98-107); Estimated Glomerular Filt Rate > 60; Glucose 140 mg/dL (65-110); Osmolality Calculated 295 mOsm/kg (285-295); Potassium 4.2 mmol/L (3.4-5.0); Sodium 140 mmol/L (137-145); Total Protein 6.0 g/dL (6.3-8.2)
[2025-03-29 13:07] LABS: Bilirubin,Total 0.1 mg/dL (0.2-1.3)
== END 2025-03-23 15:30 | disposition home or self-care (01) ==
LOC: CHSLAB 15:33
PROVIDERS: PCP Family Medicine; Visit Provider Internal Medicine Hematology
DX: C32.3 Malignant neoplasm of laryngeal cartilage (principal)
CPT/HCPCS: 36415; 80053; 82533; 85025

== ENCOUNTER 2025-03-24 12:56 | Outpatient (CLI) | payer MEDICARE, OTHER, SELFPAY ==
--- OUTSIDE RECORDS SUMMARY | 2025-03-22 15:30 | XMS_ITS | Encounter Summary ---
Author Organization [facility] Address [facility] [place] [address] Care Team Providers Care Handle Finisher Name Role Phone Sumit Suárez MD Primary Care Provider [phone] Jessica Wong MD Unavailable Encounter Details Date Type Department Care Team (Latest Contact Info) Description 03/22/2025 3:30 PM BILLIARD TABLE MECHANIC - 03/22/2025 11:59 PM [facility] Hospital Encounter [facility] Radiation Oncology - [address] [address] Lg Sargent MD [address] [place] [address] Discharge Disposition: Home or Self Care (Routine [...] of Binge Drinking Not on file 02/09 Humiliation, Afraid, Rape, and Kick questionnair e Answer Date Recorded Within the last year, have y ou been afraid of your partner or ex-partner? No 03/02/2025 Within the last year, have y ou been humiliated or emotionally abused in other ways by your partner or ex-partner? No Within the last year, have y ou been kicked, hit, slapped, or otherwise physically hurt by your partner or ex-partner? No 03/02/2025 Within the last year, have y ou been raped or forced to have any kind of sexual activity by your partner or ex-partner? No 03/02/2025 Overall Financial Resource Strain (CARDIA) Answe r Date Recorded How hard is it for you to pa y for the very basics like food, housing, medical care, and heating? Not very hard 03/02/2025 Hunger Vital Sign Answer Date Recorded Within the past 12 months, y ou worried that your food would run out before you got the money to buy more. Never true 03/02/20 25 Within the past 12 months, t he food you bought just didn't last and you didn't have money to get more. Never true 03/02/2025 PRAPARE - Transportation Answer Date Re corded In the past 12 months, has l ack of transportation kept you from medical appointments or from getting medications? No 02/10 In the past 12 months, has l ack of transportation kept you from meetings, work, or from getting things needed for daily living? No 03/02/2025 Housing Stability Vital Sign Answer Jamir e Recorded In the last 12 months, was t here a time when you were not able to pay the mortgage or rent on time? No 03/02/2025 In the past 12 months, how m any times have you moved where you were living? 0 03/02/2025 At any time in the past 12 m [facility], were you homeless or living in a group home (including now)? No 03/02/2025 [facility] Utilities Answer Date Recorded In the past 12 months has th e [place], gas, oil, or water [employer] threatened to shut off services in your home? No 03/02/2025 Sex and Gender Information Value Date Recorded Sex Assigned at Male 11/16/2024 7:21 AM CDT Legal Sex Male 8:30 PM CDT Gender Identity Not on file Sexual Orientation Not on file documented as of this encounter Functional Status * Are you deaf or do you have serious difficulty hearing Answer Date of Assessment Author Status No 03/02/2025 11:37 PM CDT Bird Smith RN Active * Are you blind or do you have serious difficulty seeing, even when wearing glasses? Answer Date of Assessment Author Status No 03/02/2025 11:37 PM Bird Nelson RN Active * Do you have serious difficulty walking or climbing stairs? Answer Date of Assessment Author Status No 03/02/2025 11:37 PM Bird Nelson RN Active * Do you have difficulty dressing or bathing? Answer Date of Assessment Author Status No 03/02/2025 11:37 PM Bird Nelson RN Active * Because of a physical, mental, or emotional condition, do you have difficulty doing errands alone such as visiting a doctor's office or shopping? Answer Date of Assessment Author Status No 03/02/2025 11:37 PM Bird Nelson RN Active documented as of this encounter Mental Status * Because of a physical, mental, or emotional condition, do you have serious difficulty concentrating, remembering, or making decisions? Answer Entry Date Author Status No 03/02/2025 11:37 PM Bird Nelson RN Active documented in this encounter Medications at Time of Discharge albuterol sulfate HFA 108 (90 Base) MCG/ACT inhaler Inhale 2 puffs into the lungs every 8 (eight) hours as needed for Wheezing or Shortness of breath. aspirin 81 MG chewable tablet Chew 1 tablet (81 mg total) by mouth daily for 60 days. 30 tablet 1 03/08/2025 atorvastatin (LIPITOR) 20 MG tablet Take 1 tablet (20 mg total) by mouth nightly at bedtime for 60 days. 60 tablet 03/07/2025 5 carvedilol (COREG) 3.125 MG tablet Take 1 tablet (3.125 mg total) by mouth 2 (two) times daily with meals. 60 tablet 11 03/08/2025 clopidogrel (PLAVIX) 75 MG tablet Take 1 tablet (75 mg total) by mouth daily. 30 tablet 11 03/09/2025 empagliflozin (JARDIANCE) 25 MG tablet Take 1 tablet (25 mg total) by mouth daily. famotidine (PEPCID) 40 MG tablet Take 1 tablet (40 mg total) by mouth daily. Insulin Syringe-Needle U-100 (INSULIN SYRINGE .3CC/29GX1/2) 29G X 1/2 0.3 ML Misc Use as directed 100 each 02/28/2019 melatonin 5 MG tablet Take 2 tablets (10 mg total) by mouth nightly as needed. metFORMIN (GLUCOPHAGE) 500 MG tablet Take 2 tablets (1,000 mg total) by mouth 2 (two) times daily with meals. omeprazole (PRILOSEC) 40 MG capsule Take 1 capsule (40 mg total) by mouth daily. documented as of this encounter Plan of Treatment Upcoming Encounters Date Type Department Care Team (Late st Contact Info) Description 08/11/2025 9:45 AM CDT [facility] [address] [place] [phone] Jesisca Wong MD [address] [place] [address] documented as of this encounter Visit Diagnoses Not on filedocumented in this encounter Care Teams Handle Finisher Relationship Specialty Start Date End Date Sumit Suárez MD [address] [place] [phone] PCP - General FAMILY PRACTICE 04/09/21 Jessica Wong MD [address] [place] [address] Consulting Physician CARDIOVASCULAR DISEASE 12/01/24 documented as of this encounter
--- OUTSIDE RECORDS SUMMARY | 2025-03-23 12:00 | XMS_ITS | Encounter Summary ---
Author Organization [facility] Address [facility] [place] [address] Care Team Providers Care Social Science Teacher Name Role Phone Sumit Suárez MD Primary Care Provider [phone] Jessica Wong MD Unavailable Encounter Details Date Type Department Care Team (Late st Contact Info) Description 03/23/2025 12:00 PM [facility] Encounter [facility] Radiation Oncology - [place] [address] [place] [address] Lg Sargent MD [address] [place] [address] Social History Tobacco Use Types Packs/Day Years [...] any time in the past 12 m onths, were you homeless or living in a fpc (including now)? No 03/02/2025 [facility] Utilities Answer Date Recorded In the past 12 months has th e electric, gas, oil, or water company threatened to shut off services in your [...] PM CDT Bird Smith RN Active * Do you have serious difficulty walking or climbing stairs? Answer Date of Assessment Author Status No 03/02/2025 11:37 PM KATHYT Bird Smith RN Active * Do you have difficulty dressing or bathing? Answer Date of Assessment Author Status No 03/02/2025 11:37 PM KATHYT Bird Smith RN Active * Because of a physical, [...] Nelson RN Active documented in this encounter Plan of Treatment Upcoming Encounters Date Type Department Care Team (Late st Contact Info) Description 08/11/2025 9:45 AM CDT Office Visit [facility] [address] [phone] Jessica Wong MD [address] [place] [address] documented as of this encounter Visit Diagnoses Not on filedocumented in this encounter Care Teams Social Science Teacher Relationship Specialty Start Date End Date Sumit Suárez MD [address] [place] [phone] PCP - General FAMILY PRACTICE 04/09/21 Jessica Wong MD [address] [place] [address] Consulting Physician CARDIOVASCULAR DISEASE 12/01/24 documented as of this encounter
[2025-03-24 13:00] VITALS: BP 96/60; PULSE 72; RESP 16; TEMP 36.5; O2SAT 98; BMI 21.2
[2025-03-24] MEDS: [UNRECOGNIZED DRUG - OTHER] IVPB (13:15)
[2025-03-24] MEDS: POTASSIUM CHLORIDE IVPB (13:15)
[2025-03-24] MEDS: MAGNESIUM SULFATE IVPB (13:15)
--- OUTSIDE RECORDS SUMMARY | 2025-03-24 13:34 | XMS_ITS | Encounter Summary ---
Author Organization [facility] Address [facility] [place] [address] Care Team Providers Care Central Supply Supervisor Name Role Phone Trevin Hobbs MD Primary Care Provider [phone] Sumit Suárez MD Primary Care Provider [phone] Jessica Wong MD Unavailable Encounter Details Date Type Department Care Team (Late Contact Info) Description 07/26/2017 Abstract SJS CONVERSION [address] [place] [address] , Generic Conversion, Social History Tobacco Use [...] Department Care Team (Late Contact Info) Description 08/11/2025 9:45 AM CDT Office Visit [facility] [phone] Jessica Wong MD [address] [place] [address] documented as of this encounter Visit Diagnoses Not on filedocumented in this encounter Additional Health Concerns Infection Onset Date Last Indicated Resolved Time COVID-19 Rule Out 07/23/2021 07/23/2021 07/23/2021 10:52 PM CDT COVID-19 Confirmed 07/23/2021 07/23/2021 12:33 AM CDT COVID-19 Rule Out 03/02/2025 03/02/2025 03/02/2025 8:37 PM CDT Respiratory Rule Out 03/02/2025 03/02/2025 025 8:37 PM CDT documented as of this encounter Care Teams Central Supply Supervisor Relationship Specialty Start Date End Date Trevin Hobbs MD [address] [place] [phone] PCP - General FAMILY PRACTICE 02/27/19 04/08/21 Sumit Suárez MD [address] [place] [phone] PCP - General FAMILY PRACTICE 04/09/21 Jessica Wong MD [address] [place] [address] Consulting Physician CARDIOVASCULAR DISEASE 12/01/24 documented as of this encounter
--- OUTSIDE RECORDS SUMMARY | 2025-03-24 13:34 | XMS_ITS | Encounter Summary ---
Author Organization [facility] Address [address] [place] [address] Care Team Providers Care House Manager Name Role Phone Trevin Hobbs MD Primary Care Provider [phone] Sumit Suárez MD Primary Care Provider Jessica Wong MD Unavailable Encounter Details Date Type Department Care Team (Late Contact Info) Description 10/17/2018 Abstract SFL CONVERSION [address] [place] [address] , Generic Conversion, Social History Tobacco Use [...] Description 08/11/2025 9:45 AM CDT Office Visit [facility] [phone] Jessica Wong MD [address] [place] [address] documented as of this encounter [...] documented as of this encounter Care Teams House Manager Relationship Specialty Start Date End Date Trevin Hobbs MD [address] [place] [phone] PCP - General FAMILY PRACTICE 02/27/19 04/08/21 Sumit Suárez MD [address] [place] [phone] PCP - General FAMILY PRACTICE 04/09/21 Jessica Wong MD [address] [place] [address] Consulting Physician CARDIOVASCULAR DISEASE 12/01/24 documented as of this encounter
--- OUTSIDE RECORDS SUMMARY | 2025-03-24 13:40 | XMS_ITS | Encounter Summary ---
Author Organization [facility] Address [address] [place] [address] Care Team Providers Care Carpet Cleaning Technician Name Role Phone Sumit Suárez MD Primary Care Provider [phone] Jessica Wong MD Unavailable Encounter Details Date Type Department Care Team (Late st Contact Info) Description 03/10/2025 Hospital Follow-up Call [facility] Cardiovascular Care Unit [address] [place] [address] Katlin Felipe, RN Social History Tobacco Use Types Packs/Day Years [...] any time in the past 12 m [facility], were you homeless or living in a group home (including now)? No 03/02/2025 [facility] Utilities Answer Date Recorded In the [...] PM CDT Bird Smith RN Active * Because of a physical, mental, or emotional condition, do you have difficulty doing errands alone such as visiting a doctor's office or shopping? Answer Date of Assessment Author Status No 03/02/2025 11:37 PM CDT Bird Smith RN Active documented as of this encounter Mental Status * Because of a physical, mental, or emotional condition, do you have serious difficulty concentrating, remembering, or making decisions? Answer Entry Date Author Status No 03/02/2025 11:37 PM CDT Bird Smith RN Active documented in this encounter Plan of Treatment Upcoming Encounters Date Type Department Care Team (Late st Contact Info) Description 08/11/2025 9:45 AM CDT Office Visit [facility] [address] [phone] Jessica Wong MD [address] [place] [address] documented as of this encounter Visit Diagnoses Not on filedocumented in this encounter Care Teams Carpet Cleaning Technician Relationship Specialty Start Date End Date Sumit Suárez MD [address] [place] [phone] PCP - General FAMILY PRACTICE 04/09/21 Jessica Wong MD [address] [place] [address] Consulting Physician CARDIOVASCULAR DISEASE 12/01/24 documented as of this encounter
--- OUTSIDE RECORDS SUMMARY | 2025-03-24 13:41 | XMS_ITS | Clinical Summary ---
Author Organization [facility] Address [address] [place] [address] Care Team Providers Care Labor Gang Supervisor Name Role Phone Sumit Suárez MD Primary Care Provider [phone]- [phone] Erika Newberry MD Unavailable Allergies Active Allergy Reactions Criticality [...] (40 mg total) by mouth daily. Active aspirin 81 MG chewable tablet Chew 1 tablet (81 mg total) by mouth daily for 60 days. 30 tablet 1 5 05/07/20 25 Active atorvastatin (LIPITOR) 20 MG tablet Take 1 tablet (20 mg total) by mouth nightly at bedtime for 60 days. 60 tablet 05/06/20 25 Active melatonin 5 MG tablet Take 2 tablets (10 mg total) by mouth nightly as needed. Active clopidogrel (PLAVIX) 75 MG tablet Take 1 tablet (75 mg total) by mouth daily. 30 tablet 11 5 Active carvedilol (COREG) 3.125 MG tablet Take 1 tablet (3.125 mg total) by mouth 2 (two) times daily with meals. 60 tablet 11 5 Active Active Problems Problem Noted Date Diagnosed Date DKA (diabetic ketoacidosis) 03/03/2025 DKA, type 1, not at goal 03/02/2025 Unintended weight loss 02/28/2019 Hyperglycemia due to type 2 diabetes mellitus CAP (community acquired pneumonia) 02/27/2019 COPD (chronic obstructive pulmonary disease) Hyperlipemia 02/27/2019 Encounters Date Type Department Care Team Description 03/23/2025 12:00 PM FRUIT HARVEST MACHINE OPERATOR Hospital Encounter [address] [address] Lg Sargent MD 03/23/2025 Travel 03/22/2025 3:30 PM FRUIT HARVEST MACHINE OPERATOR - 03/22/2025 11:59 PM FRUIT HARVEST MACHINE OPERATOR Hospital Encounter [address] [address] Lg Sargent MD Discharge Disposition: Home or Self Care (Routine Discharge) 03/22/2025 Travel 03/21/2025 3:30 PM FRUIT HARVEST MACHINE OPERATOR - 03/21/2025 11:59 PM FRUIT HARVEST MACHINE OPERATOR Hospital Encounter [address] [address] Lg Sargent MD Discharge Disposition: Home or Self Care (Routine Discharge) 03/21/2025 Travel 03/18/2025 3:30 PM FRUIT HARVEST MACHINE OPERATOR - 03/18/2025 11:59 PM FRUIT HARVEST MACHINE OPERATOR Hospital Encounter [address] [address] Lg Sargent MD Discharge Disposition: Home or Self Care (Routine Discharge) 03/18/2025 Travel 03/17/2025 3:36 PM FRUIT HARVEST MACHINE OPERATOR - 03/17/2025 11:59 PM FRUIT HARVEST MACHINE OPERATOR Hospital Encounter [address] [address] Lg Sargent MD Discharge Disposition: Home or Self Care (Routine Discharge) 03/17/2025 3:30 PM FRUIT HARVEST MACHINE OPERATOR - 03/17/2025 3:35 PM FRUIT HARVEST MACHINE OPERATOR Hospital Encounter [address] [address] Lg Sargent MD Discharge Disposition: Home or Self Care (Routine Discharge) 03/17/2025 Travel 03/16/2025 2:53 PM FRUIT HARVEST MACHINE OPERATOR - 03/16/2025 11:59 PM FRUIT HARVEST MACHINE OPERATOR Hospital Encounter [address] [address] Lg Sargent MD Discharge Disposition: Home or Self Care (Routine Discharge) 03/16/2025 Travel 03/15/2025 3:10 PM FRUIT HARVEST MACHINE OPERATOR - 03/15/2025 11:59 PM FRUIT HARVEST MACHINE OPERATOR Hospital Encounter [address] [address] Lg Sargent MD Discharge Disposition: Home or Self Care (Routine Discharge) 03/15/2025 Travel 03/11/2025 11:30 AM CDT - 03/11/2025 11:59 PM CDT Hospital Encounter [address] [address] Lg Sargent MD Discharge Disposition: Home or Self Care (Routine Discharge) 03/11/2025 Travel 03/10/2025 11:42 AM CDT - 03/10/2025 11:59 PM CDT Hospital Encounter [address] [address] Lg Sargent MD Discharge Disposition: Home or Self Care (Routine Discharge) 03/10/2025 11:30 AM CDT - 03/10/2025 11:41 AM CDT Hospital Encounter [facility] [address] [address] Lg Sargent MD Discharge Disposition: Home or Self Care (Routine Discharge) 03/10/2025 Hospital Follow-up Call [facility] [address] [place] [address] Katlin Felipe RN 03/10/2025 Travel 03/08/2025 Telephone [facility] [address] [place] [address] Wendy José PA-C Appointment Request 03/07/2025 Travel 03/02/2025 11:12 PM CDT - 03/08/2025 12:02 PM CDT Hospital Encounter [facility] [address] [place] [address] Wilbert Rodriguez MD Goyal, Pankaj, MD Hindi, Zakaria, MD Subramaniyam, Rajamurugan R, MD Minhas, Irfan Ul Haq, MD Mahmoud, Anas, MD Wali, Neehal, MD Discharge Disposition: Home or Self Care (Routine Discharge) 03/02/2025 6:03 PM CDT - 03/02/2025 10:12 PM CDT [facility] [place] [address] Renetta Harrison MD Abnormal Lab Results Discharge Disposition: Another Health Care Institution Not Defined 03/02/2025 2:14 PM CDT - 03/02/2025 6:02 PM CDT Hospital Encounter [facility] [address] [address] Lg Sargent MD Discharge Disposition: Home or Self Care (Routine Discharge) 03/02/2025 Travel 03/01/2025 3:30 PM CDT - 03/01/2025 11:59 PM CDT Hospital Encounter [facility] [address] [place] [address] Lg Sargent MD Discharge Disposition: Home or Self Care (Routine Discharge) 03/01/2025 Travel 02/28/2025 3:30 PM CDT - 02/28/2025 11:59 PM CDT Hospital Encounter [address] [address] Lg Sargent MD Discharge Disposition: Home or Self Care (Routine Discharge) 02/28/2025 Travel 02/25/2025 1:30 PM CDT - 02/25/2025 11:59 PM CDT Hospital Encounter [address] [address] Lg Sargent MD Discharge Disposition: Home or Self Care (Routine Discharge) 02/25/2025 Travel 02/24/2025 3:25 PM CDT - 02/24/2025 11:59 PM CDT Hospital Encounter [address] [address] Lg Sargent MD Discharge Disposition: Home or Self Care (Routine Discharge) 02/24/2025 3:25 PM CDT - 02/24/2025 11:59 PM CDT Hospital Encounter [address] [address] Lg Sargent MD Discharge Disposition: Home or Self Care (Routine Discharge) 02/24/2025 Travel 02/23/2025 3:16 PM CDT - 02/23/2025 11:59 PM CDT Hospital Encounter [address] [address] Lg Sargent MD Discharge Disposition: Home or Self Care (Routine Discharge) 02/23/2025 Travel 02/22/2025 11:36 AM CDT - 02/22/2025 11:59 PM CDT Hospital Encounter [address] [address] Lg Sargent MD Discharge Disposition: Home or Self Care (Routine Discharge) 02/22/2025 Travel 02/21/2025 3:11 PM CDT - 02/21/2025 11:59 PM CDT Hospital Encounter [address] [address] Lg Sargent MD Discharge Disposition: Home or Self Care (Routine Discharge) 02/21/2025 Travel 02/18/2025 11:23 AM CDT - 02/18/2025 11:59 PM CDT Hospital Encounter [address] [address] Lg Sargent MD Discharge Disposition: Home or Self Care (Routine Discharge) 02/18/2025 Travel 02/17/2025 11:23 AM CDT - 02/17/2025 11:59 PM CDT Hospital Encounter [address] [address] Lg Sargent MD Discharge Disposition: Home or Self Care (Routine Discharge) 02/17/2025 11:23 AM CDT - 02/17/2025 11:59 PM CDT Hospital Encounter [address] [address] Lg Sargent MD Discharge Disposition: Home or Self Care (Routine Discharge) 02/17/2025 Travel 02/16/2025 3:23 PM CDT - 02/16/2025 11:59 PM CDT Hospital Encounter [address] [address] Lg Sargent MD Discharge Disposition: Home or Self Care (Routine Discharge) 02/16/2025 Travel 02/14/2025 3:30 PM CDT - 02/14/2025 11:59 PM CDT Hospital Encounter [address] [address] Lg Sargent MD Discharge Disposition: Home or Self Care (Routine Discharge) 02/14/2025 Travel 02/11/2025 4:00 PM CDT - 02/11/2025 11:59 PM CDT Hospital Encounter [address] [address] Lg Sargent MD Discharge Disposition: Home or Self Care (Routine Discharge) 02/11/2025 3:30 PM CDT - 02/11/2025 3:59 PM CDT Hospital Encounter [address] [address] Lg Sargent MD Discharge Disposition: Home or Self Care (Routine Discharge) 02/11/2025 Travel 02/10/2025 2:27 PM CDT - 02/10/2025 11:59 PM CDT Hospital Encounter [address] [address] Lg Sargent MD Discharge Disposition: Home or Self Care (Routine Discharge) 02/10/2025 [facility] [address] [place] [address] Erika Newberry MD Schedule Test; Appointment Reminder 02/10/2025 Travel 02/09/2025 3:23 PM CDT - 02/09/2025 11:59 PM CDT Hospital Encounter [address] [address] Lg Sargent MD Discharge Disposition: Home or Self Care (Routine Discharge) 02/09/2025 Travel 02/08/2025 11:26 AM CDT - 02/08/2025 11:59 PM CDT Hospital Encounter [address] [address] Lg Sargent MD Discharge Disposition: Home or Self Care (Routine Discharge) 02/08/2025 Travel 02/07/2025 3:30 PM CDT - 02/07/2025 11:59 PM CDT Hospital Encounter [address] [address] Lg Sargent MD Discharge Disposition: Home or Self Care (Routine Discharge) 02/07/2025 Travel 02/04/2025 3:30 PM CDT - 02/04/2025 11:59 PM CDT Hospital Encounter [address] [address] Lg Sargent MD Discharge Disposition: Home or Self Care (Routine Discharge) 02/04/2025 Travel 02/03/2025 11:21 AM CDT - 02/03/2025 11:59 PM CDT Hospital Encounter [address] [address] Lg Sargent MD Discharge Disposition: Home or Self Care (Routine Discharge) 02/03/2025 Travel 02/02/2025 11:40 AM CDT - 02/02/2025 11:59 PM CDT Hospital Encounter [address] [address] Lg Sargent MD Discharge Disposition: Home or Self Care (Routine Discharge) 02/01/2025 3:54 PM CDT - 02/01/2025 11:59 PM CDT Hospital Encounter [address] [address] Lg Sargent MD Discharge Disposition: Home or Self Care (Routine Discharge) 02/01/2025 3:30 PM CDT - 02/01/2025 3:53 PM CDT Hospital Encounter [address] [address] Lg Sargent MD Discharge Disposition: Home or Self Care (Routine Discharge) 02/01/2025 Travel 01/31/2025 3:30 PM CDT - 01/31/2025 11:59 PM CDT Hospital Encounter [facility] [address] [address] Lg Sargent MD Discharge Disposition: Home or Self Care (Routine Discharge) 01/31/2025 Travel 01/28/2025 3:30 PM CDT - 01/28/2025 11:59 PM CDT Hospital Encounter [address] [address] Lg Sargent MD Discharge Disposition: Home or Self Care (Routine Discharge) 01/28/2025 Travel 01/27/2025 10:30 AM CDT - 01/27/2025 11:59 PM CDT Hospital Encounter [address] [address] Lg Sargent MD Discharge Disposition: Home or Self Care (Routine Discharge) 01/27/2025 10:10 AM CDT - 01/27/2025 10:29 AM CDT Hospital Encounter [address] [address] Lg Sargent MD Discharge Disposition: Home or Self Care (Routine Discharge) 01/26/2025 3:30 PM CDT - 01/26/2025 11:59 PM CDT Hospital Encounter [address] [address] Lg Sargent MD Discharge Disposition: Home or Self Care (Routine Discharge) 01/26/2025 Travel 01/07/2025 11:28 AM CDT - 01/07/2025 11:59 PM CDT Hospital Encounter [facility] [address] [place] [address] Yaakov Frazier MD Discharge Disposition: Home or Self Care (Routine Discharge) 01/07/2025 Travel from Last 3 Months Family History [...] any time in the past 12 m [facility], were you homeless or living in a [facility] (including now)? No 03/02/2025 [facility] Utilities Answer Date Recorded In the past 12 months has e electric, gas, oil, or water company threatened to shut off services in your home? No 03/02/2025 Sex and Gender Information Value Date Recorded Sex Assigned at Male 11/16/2024 7:21 AM CDT Legal Sex Male 8:30 PM CDT Gender Identity Not on file Sexual Orientation Not on file Last Filed Vital Signs Vital Sign Reading Time Taken Comments Blood Pressure 122/85 03/08/2025 8:28 AM CDT Pulse 76 03/08/2025 8:28 AM CDT Temperature 36.9 C (98.4 F) 03/08/2025 8:28 AM CDT Respiratory Rate 20 03/08/2025 8:28 AM CDT Oxygen Saturation 99% 03/08/2025 8:28 AM CDT Inhaled Oxygen Concentration - - Weight 52.7 kg (116 lb 2.9 oz) 03/08/2025 5:00 A M CDT Height 165.1 cm (5' 5) 03/02/2025 11:35 PM CDT Body Mass Index 19.33 03/02/2025 11:35 PM CDT Plan of Treatment Upcoming Encounters Date Type Department Care Team (Late st Contact Info) Description 08/11/2025 9:45 AM CDT Office Visit [facility] [address] [address] Erika Newberry MD [address] [place] [id number] Health Maintenance Due Date Last Done Comments Colorectal Cancer Screening Colonoscopy (10 Years) 1958 Kidney Health Evaluation 1958 COVID-19 Vaccine (#1) 1963 Diabetes: Retinopathy Eye Exam 1976 Hepatitis C 1976 DTaP, Tdap and Td Vaccines (1 - Tdap) 1977 Pneumococcal Vaccine: 50+ Years (1 of 2 - PCV) 1977 Zoster Vaccines (1 of 2) 1977 RSV Immunization or 60+ Years (1 - Risk 60-74 years 1-dose series) 2018 Annual Medicare Wellness Visit 2023 Influenza Adult (#1) 2025 Hemoglobin A1C 08/31/2025 03/02/2025, 07/0 12/2024, 02/28/2019 Lipid Panel 03/02/2026 03/02/2025 AAA SCREENING Completed 01/07/2025, 05/13, 05/09/2021, Additional [...] Procedure Name Priority Date/Time Associated Diagnosis Comments POCT GLUCOSE - DOCKED DEVICE Routine 03/08/2025 6:02 AM CDT HC CBC AUTO W/AUTO DIFF Routine 03/08/2025 3:17 AM CDT HC COMPREHENSIVE METABOL PANEL Routine 03/08/2025 3:17 AM CDT POCT GLUCOSE - DOCKED DEVICE Routine 03/07/2025 11:49 PM CDT POCT GLUCOSE - DOCKED DEVICE Routine 03/07/2025 9:07 PM CDT POCT GLUCOSE - DOCKED DEVICE Routine 03/07/2025 3:47 PM CDT POCT GLUCOSE - DOCKED DEVICE Routine 03/07/2025 10:53 AM CDT HC PHOSPHORUS TIMED 03/07/2025 8:30 AM CDT POCT GLUCOSE - DOCKED DEVICE Routine 03/07/2025 5:57 AM CDT HC CBC AUTO W/AUTO DIFF Routine 03/07/2025 3:32 AM CDT HC COMPREHENSIVE METABOL PANEL Routine 03/07/2025 3:32 AM CDT HC MAGNESIUM Routine 03/07/2025 3:32 AM CDT HC PHOSPHORUS Routine 03/07/2025 3:32 AM CDT HC PHOSPHORUS TIMED 03/06/2025 11:56 PM CDT POCT GLUCOSE - DOCKED DEVICE Routine 03/06/2025 8:38 PM CDT HC PHOSPHORUS TIMED 03/06/2025 8:19 PM CDT HC PHOSPHORUS TIMED 03/06/2025 4:02 PM CDT HC PHOSPHORUS TIMED 03/06/2025 12:34 PM CDT POCT GLUCOSE - DOCKED DEVICE Routine 03/06/2025 11:55 AM CDT HC PHOSPHORUS TIMED 03/06/2025 8:07 AM CDT POCT GLUCOSE - DOCKED DEVICE Routine 03/06/2025 6:24 AM CDT HC COMPREHENSIVE METABOL PANEL Routine 03/06/2025 4:09 AM CDT HC MAGNESIUM Routine 03/06/2025 4:09 AM CDT HC CBC AUTO W/AUTO DIFF Routine 03/06/2025 4:09 AM CDT HC PHOSPHORUS Routine 03/06/2025 4:09 AM CDT HC PHOSPHORUS TIMED 03/05/2025 11:33 PM CDT POCT GLUCOSE - DOCKED DEVICE Routine 03/05/2025 8:23 PM CDT POCT GLUCOSE - DOCKED DEVICE Routine 03/05/2025 5:23 PM CDT HC PHOSPHORUS TIMED 03/05/2025 3:45 PM CDT HC PHOSPHORUS TIMED 03/05/2025 3:44 PM CDT HC PHOSPHORUS TIMED 03/05/2025 2:20 PM CDT POCT GLUCOSE - DOCKED DEVICE Routine 03/05/2025 11:34 AM CDT HC PHOSPHORUS TIMED 03/05/2025 7:38 AM CDT POCT GLUCOSE - DOCKED DEVICE Routine 03/05/2025 5:40 AM CDT HC BASIC METABOLIC PANEL Routine 03/05/2025 4:07 AM CDT HC MAGNESIUM Routine 03/05/2025 4:07 AM CDT HC CBC AUTO W/AUTO DIFF Routine 03/05/2025 4:07 AM CDT HC PHOSPHORUS TIMED 03/05/2025 4:07 AM CDT HC PHOSPHORUS TIMED 03/04/2025 11:38 PM CDT POCT GLUCOSE - DOCKED DEVICE Routine 03/04/2025 9:04 PM CDT HC PHOSPHORUS TIMED 03/04/2025 8:11 PM CDT POCT GLUCOSE - DOCKED DEVICE Routine 03/04/2025 4:37 PM CDT HC PHOSPHORUS TIMED 03/04/2025 4:16 PM CDT NM PHARM NUC STRESS TEST 1DAY W TRACING Routine 03/04/2025 1:10 PM CDT BETA-HYDROXYBUTYRATE TIMED 03/04/2025 12:05 PM CDT HC PHOSPHORUS TIMED 03/04/2025 12:05 PM CDT BLOOD GAS, VENOUS TIMED 03/04/2025 12: 05 PM CDT POCT GLUCOSE - DOCKED DEVICE Routine 03/04/2025 11:15 AM CDT BETA-HYDROXYBUTYRATE TIMED 03/04/2025 7:44 AM CDT HC PHOSPHORUS TIMED 03/04/2025 7:44 AM CDT BLOOD GAS, VENOUS TIMED 03/04/2025 7:4 4 AM CDT CARDIOLOGY STRESS TEST ONLY, EXERCISE Routine 03/04/2025 7:15 AM CDT POCT GLUCOSE - DOCKED DEVICE Routine 03/04/2025 6:37 AM CDT HC TROPONIN QN Routine 03/04/2025 4:37 AM CDT HC BASIC METABOLIC PANEL Routine 03/04/2025 4:37 AM CDT HC MAGNESIUM Routine 03/04/2025 4:37 AM CDT HC CBC AUTO W/AUTO DIFF Routine 03/04/2025 4:37 AM CDT BETA-HYDROXYBUTYRATE TIMED 03/04/2025 4:37 AM CDT HC PHOSPHORUS TIMED 03/04/2025 4:37 AM CDT BLOOD GAS, VENOUS TIMED 03/04/2025 4:3 7 AM CDT BETA-HYDROXYBUTYRATE TIMED 03/04/2025 12:34 AM CDT PHOSPHORUS, INORGANIC PHOSPHATE TIMED 03/04/2025 12:34 AM CDT BLOOD GAS, VENOUS TIMED 03/04/2025 12: 34 AM CDT HC RAPID STREP Nurse Collected Priority 03/03/2025 9:36 PM CDT POCT GLUCOSE - DOCKED DEVICE Routine 03/03/2025 8:52 PM CDT BETA-HYDROXYBUTYRATE TIMED 03/03/2025 8:32 PM CDT PHOSPHORUS, INORGANIC PHOSPHATE TIMED 03/03/2025 8:32 PM CDT BLOOD GAS, VENOUS TIMED 03/03/2025 8:3 2 PM CDT POCT GLUCOSE - DOCKED DEVICE Routine 03/03/2025 5:18 PM CDT POCT GLUCOSE - DOCKED DEVICE Routine 03/03/2025 4:54 PM CDT TROPONIN, QUANT TIMED 03/03/2025 3:58 PM CDT BETA-HYDROXYBUTYRATE TIMED 03/03/2025 3:58 PM CDT PHOSPHORUS, INORGANIC PHOSPHATE TIMED 03/03/2025 3:58 PM CDT BLOOD GAS, VENOUS TIMED 03/03/2025 3:5 8 PM CDT POCT GLUCOSE - DOCKED DEVICE Routine 03/03/2025 11:15 AM CDT POCT GLUCOSE - DOCKED DEVICE Routine 03/03/2025 9:32 AM CDT USE ECHOCARDIOGRAM Today 03/03/2025 9: 20 AM CDT POCT GLUCOSE - DOCKED DEVICE Routine 03/03/2025 9:07 AM CDT BETA-HYDROXYBUTYRATE TIMED 03/03/2025 8:00 AM CDT PHOSPHORUS, INORGANIC PHOSPHATE TIMED 03/03/2025 8:00 AM CDT BASIC METABOLIC PANEL TIMED 03/03/2025 8:00 AM CDT BLOOD GAS, VENOUS TIMED 03/03/2025 8:0 0 AM CDT TROPONIN, QUANT TIMED 03/03/2025 7:26 AM CDT POCT ACUTE VENOUS PANEL Routine 03/03/2025 4:27 AM CDT POCT GLUCOSE - DOCKED DEVICE Routine 03/03/2025 4:25 AM CDT TROPONIN, QUANT TIMED 03/03/2025 4:25 AM CDT BETA-HYDROXYBUTYRATE TIMED 03/03/2025 4:25 AM CDT PHOSPHORUS, INORGANIC PHOSPHATE TIMED 03/03/2025 4:25 AM CDT BASIC METABOLIC PANEL TIMED 03/03/2025 4:25 AM CDT MAGNESIUM TIMED 03/03/2025 4:25 AM CDT CKMB(MB FRACTION ONLY) Routine 03/03/2025 4:25 AM CDT CK (CPK) Routine 03/03/2025 4:25 AM CDT POCT GLUCOSE - DOCKED DEVICE Routine 03/03/2025 3:04 AM CDT POCT GLUCOSE - DOCKED DEVICE Routine 03/03/2025 2:19 AM CDT POCT GLUCOSE - DOCKED DEVICE Routine 03/03/2025 1:01 AM CDT PROCALCITONIN (PCT) STAT 03/03/2025 1 2:32 AM CDT POCT GLUCOSE - DOCKED DEVICE Routine 03/03/2025 12:01 AM CDT ECG 12-LEAD STAT 03/02/2025 11:52 PM CDT PHOSPHORUS, INORGANIC PHOSPHATE Routine 03/02/2025 11:30 PM CDT LIPID PANEL Routine 03/02/2025 11:30 PM CDT BETA-HYDROXYBUTYRATE TIMED 03/02/2025 11:30 PM CDT CBC W/DIFF AUTOMATED Routine 03/02/2025 11:30 PM CDT MAGNESIUM Routine 03/02/2025 11:30 PM CDT COMPREHENSIVE METABOLIC PANEL STAT 03/02/2025 11:30 PM CDT TROPONIN, QUANT TIMED 03/02/2025 11:30 PM CDT POCT ACUTE VENOUS PANEL Routine 03/02/2025 11:29 PM CDT POCT GLUCOSE - DOCKED DEVICE Routine 03/02/2025 11:26 PM CDT HEMOGLOBIN, GLYCOSYLATED Routine 03/02/2025 10:30 PM CDT POCT GLUCOSE - DOCKED DEVICE Routine 03/02/2025 10:03 PM CDT POCT GLUCOSE - DOCKED DEVICE Routine 03/02/2025 8:59 PM CDT ECG 12-LEAD Routine 03/02/2025 8:33 PM CDT RESP SYNCYTIAL VIRUS STAT 03/02/2025 8:06 PM CDT CORONAVIRUS (COVID-19) ANTIGEN STAT 03/02/2025 8:06 PM CDT TROPONIN, QUANT STAT 03/02/2025 7:48 PM CDT CULTURE, BACTERIA, BLOOD STAT 03/02/2025 7:47 PM CDT ECG 12-LEAD STAT 03/02/2025 7:02 PM CDT URINALYSIS STAT 03/02/2025 6:30 PM CDT BLOOD GAS, VENOUS STAT 03/02/2025 6:2 9 PM CDT LIPASE STAT 03/02/2025 6:29 PM CDT BETA-HYDROXYBUTYRATE STAT 03/02/2025 6:29 PM CDT COMPREHENSIVE METABOLIC PANEL STAT 03/02/2025 6:29 PM CDT CBC W/DIFF AUTOMATED STAT 03/02/2025 6:29 PM CDT POCT GLUCOSE - DOCKED DEVICE Routine 03/02/2025 5:42 PM CDT PET EYE TO THIGH [id number] PATIENCE 01/07/2025 1:49 PM CDT 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 GLUCOSE POC 75 70 - 109 03/08/2025 6:17 AM CDT [facility] 03/08/2025 6:02 AM CDT us Varinder Gray MD POCT ORDERABLES - DEVICE Final R esult [facility] [address] [place] [address], [id number] * (ABNORMAL) COMPREHENSIVE METABOLIC PANEL (03/08/2025 3:17 AM CDT) Only the most recent of5 resultswithin the time period is included. SODIUM S/P/B 134(L) 136 - 145 MMOL/L 03/08/2025 4:15 AM CDT [facility] POTASSIUM S/P/B 3.8 3.5 - 5.1 MMOL/L 03/08/2025 4:15 AM CDT [facility] CHLORIDE S/P/B 104 97 - 115 MMOL/L 03/08/2025 4:15 AM CDT [facility] CO2 27.9 21.0 - 32.0 MMOL/L 03/08/2025 4:15 AM CDT [facility] GLUCOSE 131(H) 74 - 106 MG/DL 03/08/2025 4:15 AM CDT [facility] BUN 14 7 - 18 MG/DL 03/08/2025 4:15 AM CDT [facility] CREATININE S/P/B 0.60(L) 0.70 - 1.30 MG/DL 03/08/2025 4:15 AM CDT [facility] CALCIUM S/P/B 8.1(L) 8.5 - 10.1 MG/DL 03/08/2025 4:15 AM CDT [facility] BILIRUBIN TOTAL S/P/B 0.2 0.2 - 1.0 MG/DL 03/08/2025 4:15 AM CDT [facility] ALKALINE PHOSPHATASE S/P/B 61 45 - 115 U/L 03/08/2025 4:15 AM CDT [facility] AST 27 15 - 37 U/L 03/08/2025 4:15 AM CDT [facility] ALT 45 16 - 61 U/L 03/08/2025 4:15 AM CDT [facility] TOTAL PROTEIN S/P/B 5.6(L) 6.4 - 8.2 G/DL 03/08/2025 4:15 AM CDT [facility] ALBUMIN S/P/B 2.7(L) 3.4 - 5.0 G/DL 03/08/2025 4:15 AM CDT [facility] ANION GAP 2.1 2.0 - 10.0 MMOL/L 03/08/2025 4:15 AM CDT [facility] OSMOLALITY (CALC) 280 MOSM/KG 025 4:15 AM CDT [facility] Comment:REFERENCE RANGE NOT ESTABLISHED GFR ESTIMATE >90 >90 ML/MIN/1. 73 M2 03/08/2025 4:15 AM CDT [facility] GFR NOTES GFR REFERENCE S: 03/08/2025 4:15 AM CDT [facility] Comment: THE ESTIMATED GFR IS CALCULATED [...] ml/min/1.73 m2 G5,KIDNEY FAILURE: <15 ml/min/1.73 m2 03/08/2025 3:17 AM CDT Terri Hall MD LABORATORY Final Result [facility] [address] [place] [address], [id number] * (ABNORMAL) CBC W/DIFF AUTOMATED (03/08/2025 3:17 AM CDT) Only the most recent of7 resultswithin the time period is included. WBC 1.86(L) 4.00 - 10.80 x10'3/uL 03/08/2025 3:45 AM CDT [facility] RBC 3.27(L) 4.50 - 6.10 x10'6/uL 03/08/2025 3:45 AM CDT [facility] HGB 10.6(L) 13.0 - 18.0 G/DL 03/08/2025 3:45 AM CDT [facility] HCT 31.0(L) 37.0 - 52.0 % 03/08/2025 3:45 AM CDT [facility] MCV 94.8 78.0 - 100.0 FL 03/08/2025 3:45 AM CDT [facility] MCH 32.4(H) 27.0 - 31.0 PG 03/08/2025 3:45 AM CDT [facility] MCHC 34.2 33.0 - 36.0 G/DL 03/08/2025 3:45 AM CDT [facility] RDW 14.1 11.5 - 14.5 % 03/08/2025 3:45 AM CDT [facility] PLT 100(L) 150 - 350 x10'3/uL 03/08/2025 3:45 AM CDT [facility] MPV 9.6 7.4 - 10.4 FL 03/08/2025 3:45 AM CDT [facility] DIFFERENTIAL TYPE MANUAL DIFFERENTIAL 03/08/2025 4:40 AM CDT [facility] NRBC % 0.0 % 03/08/2025 4:40 AM CDT [facility] SEG NEUTROPHILS 57 % 4:40 AM CDT [facility] LYMPHOCYTES 16 % 03/08/2025 4:40 AM CDT [facility] MONOCYTES 23 % 03/08/2025 4:40 AM CDT [facility] EOSINOPHILS 1 % 03/08/2025 4:40 AM CDT [facility] BASOPHILS 0 % 03/08/2025 4:40 AM CDT [facility] BANDS 3 % 03/08/2025 4:40 AM CDT [facility] ABS. NEUTROPHILS 1.12(L) 1.60 - 8.30 x10'3/uL 03/08/2025 4:40 AM CDT [facility] ABS. LYMPHOCYTES 0.30(L) 0.80 - 4.70 x10'3/uL 03/08/2025 4:40 AM CDT [facility] ABS. MONOCYTES 0.43 0.00 - 1.50 x10'3/uL 03/08/2025 4:40 AM CDT [facility] ABS. EOSINOPHILS 0.02 0.00 - 0.40 x10'3/uL 03/08/2025 4:40 AM CDT [facility] ABS. BASOPHILS 0.00 0.00 - 0.20 x10'3/uL 03/08/2025 4:40 AM CDT [facility] ABS. NUCLEATED RBC'S 0.00 0.00 - 0.01 x10'3/uL 03/08/2025 4:40 AM CDT [facility] RBC MORPHOLOGY SLIDE REVIEWED 2024 4:40 AM CDT [facility] ANISO SLIGHT 03/08/2025 4:40 AM CDT [facility] POIKLO SLIGHT 03/08/2025 4:40 AM CDT [facility] MACRO SLIGHT 03/08/2025 4:40 AM CDT [facility] SPHERO PRESENT 03/08/2025 4:40 AM CDT [facility] PLT EST. DECREASED 03/08/2025 4:40 AM CDT [facility] 03/08/2025 3:17 AM CDT Terri Hall MD LABORATORY Final Result Performing Organization Address [facility] [facility] Co de Phone Number [facility] [address] [place] [address], [phone] * PHOSPHORUS, INORGANIC PHOSPHATE (03/07/2025 8:30 AM CDT) Only the most recent of26 resultswithin the time period is included. PHOSPHORUS 3.0 2.5 - 4.9 MG/DL 03/07/2025 9:14 AM CDT [facility] 03/07/2025 8:30 AM CDT Anisa Tsai MD LABORATORY Fi nal Result Performing Organization Address [facility] de Phone Number [facility] [address] [place] [address], [phone] * MAGNESIUM (03/07/2025 3:32 AM CDT) Only the most recent of6 resultswithin the time period is included. MAGNESIUM 1.8 1.6 - 2.6 MG/DL 03/07/2025 4:48 AM CDT [facility] 03/07/2025 3:32 AM CDT Anisa Tsai MD LABORATORY Fi nal Result Performing Organization Address [facility] Co de Phone Number [facility] [address] [place] [address], [phone] * (ABNORMAL) BASIC METABOLIC PANEL (03/05/2025 4:07 AM CDT) Only the most recent of4 resultswithin the time period is included. SODIUM S/P/B 136 136 - 145 MMOL/L 03/05/2025 5:18 AM CDT [facility] POTASSIUM S/P/B 3.6 3.5 - 5.1 MMOL/L 03/05/2025 5:18 AM CDT [facility] CHLORIDE S/P/B 102 97 - 115 MMOL/L 03/05/2025 5:18 AM T [facility] CO2 30.5 21.0 - 32.0 MMOL/L 03/05/2025 5:18 AM CDT [facility] GLUCOSE 85 74 - 106 MG/DL 03/05/2025 5:18 AM CDT [facility] BUN 13 7 - 18 MG/DL 03/05/2025 5:18 AM T [facility] CREATININE S/P/B 0.50(L) 0.70 - 1.30 MG/DL 03/05/2025 5:18 AM CDT [facility] CALCIUM S/P/B 8.7 8.5 - 10.1 MG/DL 03/05/2025 5:18 AM CDT [facility] ANION GAP 3.5 2.0 - 10.0 MMOL/L 03/05/2025 5:18 AM T [facility] OSMOLALITY (CALC) 281 MOSM/KG 025 5:18 AM [facility] Comment:REFERENCE RANGE NOT ESTABLISHED GFR ESTIMATE >90 >90 ML/MIN/1. 73 M2 03/05/2025 5:18 AM [facility] GFR NOTES GFR REFERENCE S: 03/05/2025 5:18 AM [facility] Comment: THE ESTIMATED GFR IS [...] ml/min/1.73 m2 G5,KIDNEY FAILURE: <15 ml/min/1.73 m2 03/05/2025 4:07 AM CDT Anisa Tsai MD LABORATORY Fi nal Result [facility] [address] [place] [address], [phone] * NM PHARM NUC STRESS TEST 1 DAY W TRACING (03/04/2025 1:10 PM CDT) Anatomical Region Laterality Modality Cardiac Nuclear Medicine 03/04/2025 7:30 AM CDT Narrative 03/04/2025 6:26 PM CDT MYOCARDIAL PERFUSION SCAN Pat.Name: EDELMIRA BURDICK Pat.ID: [id number] .Date: 03/04/2025 Refer.MD: ERIKA NEWBERRY Exam Time: 7:30:00 AM Study Type:NC Ht Muscle Image SPECT Multi Nuclear Height: 65 in Weight: 118 lb BSA: 1.58 m2 Age: 2 1960,64Y Sex: M Sonogrphr: JOSÉ MANUEL Villatoro Pat. Stat.:Inpatient Room: 436 Reason for Study:elevated trop Procedures: Regadenoson Stress, Stress Gated SPECT, Rest SPECT, Pt unable to tolerate prone images. Race: W Risk Factors:Asthma, Anxiety, COPD, Diabetes, Mixed HLD, SA. Medications:Albuterol, Jardiance, Insulin, Metformin, Omeprazole, Pepcid, ++++++++++++++++++++++++++++++++++++ SUMMARY: ++++++++++++++++++++++++++++++++++++ Abnormal Perfusion Study. Evidence of mixed defect with carolyn-infarct ischemia. There is evidence of a medium to large area of severe intensity partially reversible defect consistent with ischemia and infarction in the capical cap, entire apical LV wall, and mid anterior wall. There is evidence of a small area of moderate intensity fixed defect consistent with infarction in the mid septal wall. There is evidence of a small area of mild to moderate intensity partially reversible defect consistent with ischemia and infarct in the inferior wall. There is post stress moderate hypokinesis in the basal anterior, basal anteroseptal, mid anterior, mid anteroseptal, apical anterior wall(s). Normal wall motion in all other . Left ventricular EF is 46 %. The study quality is good. ++++++++++++++++++++++++++++++++++++ FINDINGS: ++++++++++++++++++++++++++++++++++++ Stress Findings: Negative electrocardiographic portion of regadenoson stress test. The patient had no complaints of chest pain. Impr: Abnormal Perfusion Study. There is evidence of a medium to large area of severe intensity partially reversible defect consistent with ischemia and infarction in the capical cap, entire apical LV wall, and mid anterior wall. There is evidence of a small area of moderate intensity fixed defect consistent with infarction in the mid septal wall. There is evidence of a small area of mild to moderate intensity partially reversible defect consistent with ischemia and infarct in the inferior wall. Transient Ischemic Dilatation: The TID is 1.03. LV Perfusion Results: There is a absent uptake apical anterior perfusion defect during stress which improves with rest.There is a severe apical septal, apical perfusion defect during stress and rest.There is a severe apical inferior, apical lateral perfusion defect during stress which improves with rest.There is a moderate mid anterior perfusion defect during stress which improves with rest.There is a moderate mid anteroseptal, mid inferoseptal, mid inferior perfusion defect during stress and rest.There is a mild basal inferior perfusion defect during stress which normalizes with rest. Gated SPECT Results: Left ventricular EF is 46 %. There is post stress moderate hypokinesis in the basal anterior, basal anteroseptal, mid anterior, mid anteroseptal, apical anterior wall(s). Normal wall motion in all other . Study Quality/Artifacts: The study quality is good. ++++++++++++++++++++++++++++++++++++ STRESS: ++++++++++++++++++++++++++++++++++++ Baseline Vital Signs: Baseline ECG: Septal infarct Baseline Rhythm: Atrial fibrillation HR: 83 bmp Rest BP: 170/87 Regadenoson Peak Dose: 0.4 mg Duration: 06:00 min:sec Stress Test Results: Target HR: [address]: 0 mm Symptoms and Complications: Arrhythmias: None Reason for Stopping Test: Protocol completed Stress Induced Symptoms: None Complications: None ECG Findings: No ischemic S-T changes occurred with stress <Electronic Signature> 03/04/2025 06:26 PM Erika Newberry M.D. Procedure Note Erika Newberry MD - 03/04/2025 MYOCARDIAL PERFUSION SCAN Pat.Name: EDELMIRA BURDICK Pat.ID: [id number] .Date: 03/04/2025 Refer.MD: ERIKA NEWBERRY Exam Time: 7:30:00 AM Study Type:NC Ht Muscle Image SPECT Multi Nuclear Height: 65 in Weight: 118 lb BSA: 1.58 m2 Age: 2 1960,64Y Sex: M Sonogrphr: JOSÉ MANUEL Villatoro Pat. Stat.:Inpatient Room: [facility] Reason for Study:elevated trop Procedures: Regadenoson Stress, Stress Gated SPECT, Rest SPECT, Pt unable to tolerate prone images. Race: W Risk Factors:Asthma, Anxiety, COPD, Diabetes, Mixed HLD, SA. Medications:Albuterol, Jardiance, Insulin, Metformin, Omeprazole, Pepcid, ++++++++++++++++++++++++++++++++++++ SUMMARY: ++++++++++++++++++++++++++++++++++++ Abnormal Perfusion Study. Evidence of mixed defect with carolyn-infarct ischemia. There is evidence of a medium to large area of severe intensity partially reversible defect consistent with ischemia and infarction in the capical cap, entire apical LV wall, and mid anterior wall. There is evidence of a small area of moderate intensity fixed defect consistent with infarction in the mid septal wall. There is evidence of a small area of mild to moderate intensity partially reversible defect consistent with ischemia and infarct in the inferior wall. There is post stress moderate hypokinesis in the basal anterior, basal anteroseptal, mid anterior, mid anteroseptal, apical anterior wall(s). Normal wall motion in all other . Left ventricular EF is 46 %. The study quality is good. ++++++++++++++++++++++++++++++++++++ FINDINGS: ++++++++++++++++++++++++++++++++++++ Stress Findings: Negative electrocardiographic portion of regadenoson stress test. The patient had no complaints of chest pain. Impr: Abnormal Perfusion Study. There is evidence of a medium to large area of severe intensity partially reversible defect consistent with ischemia and infarction in the capical cap, entire apical LV wall, and mid anterior wall. There is evidence of a small area of moderate intensity fixed defect consistent with infarction in the mid septal wall. There is evidence of a small area of mild to moderate intensity partially reversible defect consistent with ischemia and infarct in the inferior wall. Transient Ischemic Dilatation: The TID is 1.03. LV Perfusion Results: There is a absent uptake apical anterior perfusion defect during stress which improves with rest.There is a severe apical septal, apical perfusion defect during stress and rest.There is a severe apical inferior, apical lateral perfusion defect during stress which improves with rest.There is a moderate mid anterior perfusion defect during stress which improves with rest.There is a moderate mid anteroseptal, mid inferoseptal, mid inferior perfusion defect during stress and rest.There is a mild basal inferior perfusion defect during stress which normalizes with rest. Gated SPECT Results: Left ventricular EF is 46 %. There is post stress moderate hypokinesis in the basal anterior, basal anteroseptal, mid anterior, mid anteroseptal, apical anterior wall(s). Normal wall motion in all other . Study Quality/Artifacts: The study quality is good. ++++++++++++++++++++++++++++++++++++ STRESS: ++++++++++++++++++++++++++++++++++++ Baseline Vital Signs: Baseline ECG: Septal infarct Baseline Rhythm: Atrial fibrillation HR: 83 bmp Rest BP: 170/87 Regadenoson Peak Dose: 0.4 mg Duration: 06:00 min:sec Stress Test Results: Target HR: [address]: 0 mm Symptoms and Complications: Arrhythmias: None Reason for Stopping Test: Protocol completed Stress Induced Symptoms: None Complications: None ECG Findings: No ischemic S-T changes occurred with stress <Electronic Signature> 03/04/2025 06:26 PM Erika Newberry M.D. Erika Newberry MD NUC MED Final Result * (ABNORMAL) BETA-HYDROXYBUTYRATE (03/04/2025 12:05 PM CDT) Only the most recent of10 resultswithin the time period is included. BETA-HYDROXYBU TYRATE 1.1(H) 0.0 - 0.3 MMOL/L 03/04/2025 12:13 PM CDT [facility] 03/04/2025 12:0 5 PM CDT Wilbert Rodriguez MD LABORATORY Final Result [facility] [address] [place] [address], [phone] * (ABNORMAL) Blood gas, venous (03/04/2025 12:05 PM CDT) Only the most recent of8 resultswithin the time period is included. PH VENOUS 7.39 7.32 - 7.43 03/04/2025 12:15 PM CDT [facility] PCO2 VENOUS 49.0 MMHG 03/04/2025 12:15 PM CDT [facility] Comment:NO REFERENCE RANGE H BEEN ESTABLISHED PO2 VENOUS 34.0 MM HG 03/04/2025 12:15 PM CDT [facility] Comment:NO REFERENCE RANGE H BEEN ESTABLISHED TOTAL CO2 VENOUS 31.2(H) 22.0 - 26.0 MMOL/L 03/04/2025 12:15 PM CDT [facility] BASE EXCESS VENOUS 3.7 MMOL/L 03/04/2025 12:15 PM CDT [facility] Comment:NO REFERENCE RANGE H BEEN ESTABLISHED O2 SAT VENOUS 65 % 03/04/2025 12:15 PM CDT [facility] Comment:NO REFERENCE RANGE H BEEN ESTABLISHED BICARB VENOUS 29.7(H) 22.0 - 29.0 MMOL/L 03/04/2025 12:15 PM CDT [facility] OXYGEN STATUS Room air 03/04/2025 12:05 PM CDT [facility] 03/04/2025 12:0 5 PM CDT Wilbert Rodriguez MD LABORATORY Final Result Performing Organization Address [facility]/ZIP Co de Phone Number [facility] [address] [place] [address], [phone] * (ABNORMAL) TROPONIN, QUANT (03/04/2025 4:37 AM CDT) Only the most recent of6 resultswithin the time period is included. TROPONIN I HIGH SENSITIVITY 520(H) 0 - 78 ng/L 03/04/2025 6:02 AM CDT [facility] 03/04/2025 4:37 AM CDT Carloz Strickland MD LABORATORY Final Res ult Performing Organization Address [facility]/ZIP Co de Phone Number [facility] [address] [place] [address], [place] [phone] * STREP A RAPID (03/03/2025 9:36 PM CDT) SPECIMEN SOURCE THROAT 03/03/2025 9:36 PM CDT [facility] RAPID STREP TEST NEGATIVE NEGATIVE 03/03/2025 10:19 PM CDT [facility] Comment:NEGATIVE FOR GROUP A BETA STREP ANTIGEN STRUCTURE OF ANTERIOR REGION OF NECK / Unknown 03/03/2025 9:36 PM CDT Wilbert Rodriguez MD MICROBIOLOGY - GENERAL ORDERABL ES Final Result [facility] [address] [place] [address], [place] [phone] * USE ECHOCARDIOGRAM (03/03/2025 9:20 AM CDT) Anatomical Region Laterality Modality Cardiac Echocardiogram 03/03/2025 8:33 AM CDT Narrative 03/03/2025 7:10 PM CDT Echocardiography Report Pat.Name: EDELMIRA BURDICK Pat.ID: [id number] .Date: 03/03/2025 Refer.MD: WILBERT RODRIGUEZ Exam Time: 8:33:00 AM Study Type:ECHO WITH CARDIAC DOPPLER COMP Height: 65 in Weight: 118 lb BSA: 1.58 m2 Age: 2 1960,64Y Sex: M BP: 100/54 HR: 84 bpm Sonogrphr: Gretchen Westfall Pat. Stat.:Inpatient Room: [facility] CPT - 4: 94099 Reason for Study:NSTEMI Procedures: 2D, M-mode, Doppler, Color Flow Race: W ++++++++++++++++++++++++++++++++++++ SUMMARY: ++++++++++++++++++++++++++++++++++++ The left ventricular size is normal. The calculated ejection fraction is 41%. The right ventricular size is mildly enlarged. Moderate tricuspid regurgitation. Right ventricular systolic function is normal. No significant valvular heart disease. ++++++++++++++++++++++++++++++++++++ FINDINGS: ++++++++++++++++++++++++++++++++++++ LV: The left ventricular size is normal. The left ventricular systolic function is mild to moderately depressed. The calculated ejection fraction is 41%. The septal E/e' is normal at < 8. The lateral E/e' is normal at <8. LVOT: The left ventricular outflow tract size is normal. RV: The right ventricular size is mildly enlarged. Right ventricular systolic function is normal. LA: The left atrial size is normal. The left atrial volume is normal ( less than 34 ml/M2). RA: Right atrial size is mildly enlarged. CAROLYN: Pericardial effusion is noted. AO: Aorta is normal. PA: Unable to reliably quantitate pulmonary systolic pressure. SVn: Unable to assess IVC; pt g tube, dressing and small body habitus AV: The aortic valve not well visualized. MV: Structurally normal mitral valve. PV: Pulmonic valve not well visualized. TV: Moderate tricuspid regurgitation. ++++++++++++++++++++++++++++++++++++ MEASUREMENTS: ++++++++++++++++++++++++++++++++++++ DOPPLER LVOT LVOTpkPG 3 mmHg LVOTmnPG 1 mmHg LVOTpkVel 80.9 cm/s (70-110) LVOT SV 57 ml LVOT TVI 18.4 cm Right Atrium RA Press 3 mmHg AV Forward Flow AV TVI 23.9 cm AV pkPG 6 mmHg AV pkVel 126 cm/s (100-170) Area (TVI) 2.39 cm2 (3-5)* AV mnVel 84.9 cm/s Area (Tucker) 2 cm2 (3-5)* AV mnPG 3 mmHg MV Forward Flow MV DeTm 262 msec MV E/A 1 MVA P1/2t 2.86 cm2 (4-6)* MV pkE 66 cm/s (60-130) MV P1/2t 77 msec (30-60)+* MV pkA 67.7 cm/s PV Forward Flow PV pkVel 34.5 cm/s (60-90)* TV Regurg Flow TV pkPG 26 mmHg TV pkVel 256 cm/s (30-70)+* Right Ventricle RVsys P 29 mmHg Right Ventricle 16.4 cm/s Lat E' Lat e 7.29 cm/s Lat E/E' Lat E/e 9.1 Med E' Med e 7.07 cm/s Med E/E' Med E/e 9.3 Aortic Valve Aortic Valve Ar 1.51 Aortic Valve Ve 0.64 AV DI Value 0.8 JIMENA (VTI) Index Value 1.52 LV Mass 2D Value 133 g LV Mass [id number] Value 84.2 g/m2 RA Volume Atrial Dumont 4.56 cm Atrial Dumont 14.9 cm2 Atrial Dumont 39.4 ml 2D Left Ventricle LVIDd 4.58 cm (3.6-5.2) LV EF(Bi-Plane) 41.5 % (63-77)* LVIDs 3.23 cm (2.3-3.9) LVPW LVPWd 0.81 cm Ventricular Septum IVSd 0.95 cm Aorta Ao Rtd 2.85 cm (zsc 1.1) LVOT LVOT 1.99 cm Ratios IVS LA Biplane LAVol I BP 33.4 ml/m2 Right Ventricle Right Ventricle 4.33 cm Right Ventricle 3.44 cm Major [place] 7.61 cm MMODE TA Tricuspid Annul 2.35 cm <Electronic Signature> 03/03/2025 07:10 PM Erika Newberry M.D. Procedure Note Erika Newberry MD - 03/03/2025 Echocardiography Report Pat.Name: EDELMIRA BURDICK Pat.ID: [id number] .Date: 03/03/2025 Refer.MD: WILBERT RODRIGUEZ Exam Time: 8:33:00 AM Study Type:ECHO WITH CARDIAC DOPPLER COMP Height: 65 in Weight: 118 lb BSA: 1.58 m2 Age: 2 1960,64Y Sex: M BP: 100/54 HR: 84 bpm Sonogrphr: Gretchen Westfall Pat. Stat.:Inpatient Room: [facility] CPT - 4: 20265 Reason for Study:NSTEMI Procedures: 2D, M-mode, Doppler, Color Flow Race: W ++++++++++++++++++++++++++++++++++++ SUMMARY: ++++++++++++++++++++++++++++++++++++ The left ventricular size is normal. The calculated ejection fraction is 41%. The right ventricular size is mildly enlarged. Moderate tricuspid regurgitation. Right ventricular systolic function is normal. No significant valvular heart disease. ++++++++++++++++++++++++++++++++++++ FINDINGS: ++++++++++++++++++++++++++++++++++++ LV: The left ventricular size is normal. The left ventricular systolic function is mild to moderately depressed. The calculated ejection fraction is 41%. The septal E/e' is normal at < 8. The lateral E/e' is normal at <8. LVOT: The left ventricular outflow tract size is normal. RV: The right ventricular size is mildly enlarged. Right ventricular systolic function is normal. LA: The left atrial size is normal. The left atrial volume is normal ( less than 34 ml/M2). RA: Right atrial size is mildly enlarged. CAROLYN: Pericardial effusion is noted. AO: Aorta is normal. PA: Unable to reliably quantitate pulmonary systolic pressure. SVn: Unable to assess IVC; pt g tube, dressing and small body habitus AV: The aortic valve not well visualized. MV: Structurally normal mitral valve. PV: Pulmonic valve not well visualized. TV: Moderate tricuspid regurgitation. ++++++++++++++++++++++++++++++++++++ MEASUREMENTS: ++++++++++++++++++++++++++++++++++++ DOPPLER LVOT LVOTpkPG 3 mmHg LVOTmnPG 1 mmHg LVOTpkVel 80.9 cm/s (70-110) LVOT SV 57 ml LVOT TVI 18.4 cm Right Atrium RA Press 3 mmHg AV Forward Flow AV TVI 23.9 cm AV pkPG 6 mmHg AV pkVel 126 cm/s (100-170) Area (TVI) 2.39 cm2 (3-5)* AV mnVel 84.9 cm/s Area (Tucker) 2 cm2 (3-5)* AV mnPG 3 mmHg MV Forward Flow MV DeTm 262 msec MV E/A 1 MVA P1/2t 2.86 cm2 (4-6)* MV pkE 66 cm/s (60-130) MV P1/2t 77 msec (30-60)+* MV pkA 67.7 cm/s PV Forward Flow PV pkVel 34.5 cm/s (60-90)* TV Regurg Flow TV pkPG 26 mmHg TV pkVel 256 cm/s (30-70)+* Right Ventricle RVsys P 29 mmHg Right Ventricle 16.4 cm/s Lat E' Lat e 7.29 cm/s Lat E/E' Lat E/e 9.1 Med E' Med e 7.07 cm/s Med E/E' Med E/e 9.3 Aortic Valve Aortic Valve Ar 1.51 Aortic Valve Ve 0.64 AV DI Value 0.8 JIMENA (VTI) Index Value 1.52 LV Mass 2D Value 133 g LV Mass [id number] Value 84.2 g/m2 RA Volume Atrial Dumont 4.56 cm Atrial Dumont 14.9 cm2 Atrial Dumont 39.4 ml 2D Left Ventricle LVIDd 4.58 cm (3.6-5.2) LV EF(Bi-Plane) 41.5 % (63-77)* LVIDs 3.23 cm (2.3-3.9) LVPW LVPWd 0.81 cm Ventricular Septum IVSd 0.95 cm Aorta Ao Rtd 2.85 cm (zsc 1.1) LVOT LVOT 1.99 cm Ratios IVS LA Biplane LAVol I BP 33.4 ml/m2 Right Ventricle Right Ventricle 4.33 cm Right Ventricle 3.44 cm Major [place] 7.61 cm MMODE TA Tricuspid Annul 2.35 cm <Electronic Signature> 03/03/2025 07:10 PM Erika Newberry M.D. Wilbert Rodriguez MD ECHO Final Result * (ABNORMAL) POCT ACUTE VENOUS PANEL (03/03/2025 4:27 AM CDT) Only the most recent of2 resultswithin the time period is included. SODIUM WHOLE BLOOD 144 138 - 146 mmol/L 03/03/2025 4:33 AM CDT [facility] POTASSIUM WHOLE BLOOD 4.2 3.5 - 4.9 mmol/L 03/03/2025 4:33 AM CDT [facility] CA IONIZED WH BLOOD 1.28 1.12 - 1.32 mmol/L 03/03/2025 4:33 AM CDT [facility] POC PH VENOUS 7.369 7.31 - 7.41 03/03/2025 4:33 AM CDT [facility] POC PCO2 VENOUS 50.4 41.0 - 51.0 MMHG 03/03/2025 4:33 AM CDT [facility] POC PO2 VENOUS 27 25 - 40 MMHG 03/03/2025 4:33 AM CDT [facility] POC HCO3 VENOUS 29.1(H) 23 - 28 MMOL/L 03/03/2025 4:33 AM CDT [facility] POC TCO2 VENOUS 31(H) 24 - 29 MMOL/L 03/03/2025 4:33 AM CDT [facility] POC BASE EXCESS VENOUS 4(H) 0 - 3 MMOL/L 03/03/2025 4:33 AM CDT [facility] POC HEMATOCRIT 30(L) 38 - 51 % 03/03/2025 4:33 AM CDT [facility] TIME TEST WAS PERFORMED: 427 03/03/2025 4:33 AM CDT [facility] 03/03/2025 4:27 AM CDT us Júnior Esposito MD POCT ORDERABLES - DEVICE Final R esult [facility] [address] [place] [address], [place] [phone] * (ABNORMAL) CKMB(MB FRACTION ONLY) (03/03/2025 4:25 AM CDT) CK-MB 5.7(H) 0.5 - 3.6 NG/ML 03/03/2025 5:40 AM CDT [facility] 03/03/2025 4:25 AM CDT us Wilbert Rodriguez MD LABORATORY Final Result Performing Organization Address [facility] Co de Phone Number [facility] [address] [place] [address], [phone] * CK (CPK) (03/03/2025 4:25 AM CDT) CPK 75 39 - 308 U/L 03/03/2025 5:40 AM CDT [facility] 03/03/2025 4:25 AM CDT us Wilbert Rodriguez MD LABORATORY Final Result Performing Organization Address [facility] de Phone Number [facility] [address] [place] [address], [place] [phone] * (ABNORMAL) PROCALCITONIN (PCT) (03/03/2025 12:32 AM CDT) PROCALCITONIN 0.96(H) 0.00 - 0.49 NG/ML 03/03/2025 11:04 AM CDT [facility] 03/03/2025 12:3 2 AM CDT us Wilbert Rodriguez MD LABORATORY Final Result Performing Organization Address [facility] Co de Phone Number [facility] [address] [place] [address], [place] [phone] * ECG 12 lead (03/02/2025 11:52 PM CDT) Only the most recent of3 resultswithin the time period is included. ECG QT 322 [facility] RAD ECG QTC 393 [facility] 03/02/2025 11:5 2 PM CDT Narrative [facility] - 03/03/2025 5:03 [place] [address] Test Date: 2025-03-02 Pat Name: EDELMIRA BURDICK Department: 1 Room: 436 Gender: Male Zigzag Appliquer: Elias BANEGASB: 1960 Requested By: WILBERT RODRIGUEZ Order Number: [id number] Reading : Osman Patterson Measurements Intervals [place] Rate: 89 P: -2 DE: 113 QRS: 48 QRSD: 80 T: 55 QT: 322 QTc: 393 Interpretive Statements SINUS RHYTHM WITH SHORT DE INTERVAL SEPTAL MYOCARDIAL INFARCTION , PROBABLY OLD Procedure Note Osman Patterson MD - 03/03/2025 [place] [address] Test Date: 2025-03-02 Pat Name: EDELMIRA BURDICK Department: 1 Room: 436 Gender: Male Zigzag Appliquer: Elias : 1960 Requested By: WILBERT RODRIGUEZ Order Number: [id number] Reading YESI Patterson Measurements Intervals [place] Rate: 89 P: -2 DE: 113 QRS: 48 QRSD: 80 T: 55 QT: 322 QTc: 393 Interpretive Statements SINUS RHYTHM WITH SHORT DE INTERVAL SEPTAL MYOCARDIAL INFARCTION , PROBABLY OLD us Wilbert Rodriguez MD ECG ORDERABLES Final Result [facility] * LIPID PANEL (03/02/2025 11:30 PM CDT) CHOLESTEROL 170 MG/DL 03/03/2025 12:05 AM CDT [facility] Comment:DESIRABLE: <200 TRIGLYCERIDES 131 MG/DL 03/03/2025 12:05 AM CDT [facility] Comment:<150 NORMAL HDL 61 >39 MG/DL 03/03/2025 12:05 AM CDT [facility] LDL (CALCULATED) 83 MG/DL 03/03/20 12:05 AM CDT [facility] Comment: <100 OPTIMAL CALCULATED USING THE FRIEDEWALD EQUATION VLDL CALCULATION 26 MG/DL 03/03/20 12:05 AM CDT [facility] Comment:REFERENCE RANGE NOT ESTABLISHED CHOL/HDL RATIO 2.8 03/03/2025 12:05 AM CDT [facility] Comment:REFERENCE RANGE NOT ESTABLISHED LDL/HDL 1.4 03/03/2025 12:05 AM CDT [facility] Comment:REFERENCE RANGE NOT ESTABLISHED NON HDL CHOLESTEROL 109 MG/DL 03/03/2025 12:05 AM CDT [facility] Comment:REFERENCE RANGE NOT ESTABLISHED 03/02/2025 11:3 0 PM CDT Wilbert Rodriguez MD LABORATORY Final Result [facility] [address] [place] [address], [phone] * (ABNORMAL) HEMOGLOBIN, GLYCATED (03/02/2025 10:30 PM CDT) HGB A1C 8.9(H) <5.7 % 03/03/2025 6:01 AM CDT [facility] ESTIMATED AVG GLUCOSE 209(H) 74 - 114 MG/DL 03/03/2025 6:01 AM CDT [facility] 03/02/2025 10:3 0 PM CDT Wilbert Rodriguez MD LABORATORY Final Result [facility] [address] [place] [address], [place] [phone] * CORONAVIRUS (COVID-19) ANTIGEN (03/02/2025 8:06 PM CDT) CORONAVIRUS ANTIGEN IA NEGATIVE NEGATIVE 03/02/2025 8:37 PM CDT [facility] Comment: NEGATIVE RESULTS DO NOT RULE OUT SARS-COV-2 INFECTION AND SHOULD NOT BE USED THE SOLE BASIS FOR TREATMENT OR PATIENT MANAGEMENT DECISIONS, INCLUDING INFECTION CONTROL DECISIONS. NEGATIVE RESULTS SHOULD BE CONSIDERED IN THE CONTEXT OF A PATIENT'S RECENT EXPOSURES, HISTORY AND THE PRESENCE OF CLINICAL SIGNS AND SYMPTOMS CONSISTENT WITH COVID 19. THIS TEST HAS BEEN AUTHORIZED BY THE FDA UNDER AN EMERGENCY USE AUTHORIZATION (EUA) FOR USE BY AUTHORIZED LABORATORIES. SPECIMEN TYPE NASAL 03/02/2025 8:19 PM CDT [facility] NASAL NASAL STRUCTURE / Unknown 03/02/2025 8:06 PM CDT us Swapnil Erwin MD MICROBIOLOGY - GENERAL ORDERABLE S Final Result Performing Organization Address [facility] Co de Phone Number [facility] [address] [place] [address], [place] [phone] * RESP SYNCYTIAL VIRUS (03/02/2025 8:06 PM CDT) SPECIMEN TYPE NASOPHARYNGEAL SWAB 03/02/2025 8:19 PM CDT [facility] RSV NEGATIVE NEGATIVE 03/02/2025 8:37 PM CDT [facility] NASOPHARYNGEAL SWAB / Unknown 03/02/2025 8:06 PM CDT us Swapnil Erwin MD MICROBIOLOGY - GENERAL ORDERABLE S Final Result [facility] [address] [place] [address], * BLOOD CULTURE #2 (03/02/2025 7:47 PM CDT) SPEC DESCRIPTION BLOOD 03/02/2025 7:39 PM CDT [facility] SPECIAL REQUESTS NO SPECIAL REQUEST 03/02/2025 7:39 PM CDT [facility] CULTURE RESULT NO GROWTH 5 DAYS 03/08/2025 12:00 PM CDT [facility] BLOOD SPECIMEN OBTAINED FOR BLOOD CULTURE / Unknown 03/02/2025 7:47 PM CDT 03/02/2025 7:48 PM CDT us Swapnil Erwin MD MICROBIOLOGY - GENERAL ORDERABLE S Final Result [facility] [address] [place] [address], [place] [phone] [id number] [facility] [address] [place] [address], [place] [phone] * (ABNORMAL) URINALYSIS (03/02/2025 6:30 PM CDT) COLOR (U) YELLOW 03/02/2025 7:15 PM CDT [facility] TRANSPARENCY CLEAR 03/02/2025 7:15 PM CDT [facility] SPECIFIC GRAVITY (U) 1.005 1.000 - 1.025 03/02/2025 7:15 PM CDT [facility] Comment:LESS THAN OR EQUAL T O U PH 5.0 5.0 - 8.0 03/02/2025 7:15 PM CDT [facility] LEUKOCYTES (U) NEGATIVE NEGATIVE 03/02/2025 7:15 PM CDT [facility] NITRITES NEGATIVE NEGATIVE 03/02/2025 7:15 PM CDT [facility] PROTEIN RANDOM (U) NEGATIVE NEGATIVE 03/02/2025 7:15 PM CDT [facility] GLUCOSE (U) 3+(A) NEGATIVE 03/02/2025 7:15 PM CDT [facility] KETONES MG/DL (U) 3+(A) NEGATIVE 03/02/2025 7:15 PM CDT [facility] UROBILINOGEN 0.2 <1.0 EU/DL 03/02/2025 7:15 PM CDT [facility] BILIRUBIN (U) NEGATIVE NEGATIVE 03/02/2025 7:15 PM CDT [facility] BLOOD (U) NEGATIVE NEGATIVE 03/02/2025 7:15 PM CDT [facility] WBC/HPF 0-5 0 - 5 /HPF 03/02/2025 7:15 PM CDT [facility] RBC/HPF 0-5 0 - 5 /HPF 03/02/2025 7:15 PM CDT [facility] EPI/LPF RARE /LPF 03/02/2025 7:15 PM CDT [facility] BACTERIA (U) 1+ /HPF 03/02/2025 7:15 PM CDT [facility] URINE SPECIMEN OBTAINED BY CLEAN CATCH PROCEDURE / Unknown 03/02/2025 6:30 PM CDT Renetta Harrison MD URINE ORDERABLES Final Resu lt Performing Organization Address [facility]/ZIP Co de Phone Number [facility] [address] [place], [place] [address] [address], * LIPASE (03/02/2025 6:29 PM CDT) LIPASE 17 16 - 77 UNITS/L 03/02/2025 7:07 PM CDT [facility] 03/02/2025 6:29 PM CDT Renetta Harrison MD LABORATORY Final Resul t Performing Organization Address [facility]/ZIP Co de Phone Number [facility] [place] [address], * PET EYE TO THIGH [id number] (01/07/2025 1:49 PM CDT) Anatomical Region Laterality [...] 2:33 PM Narrative 01/07/2025 3:43 PM CDT [place] [address] EXAMINATION: [facility] PET/CT HISTORY: Reason for examination [...] Procedure Note Zbigniew Ferrell MD - 01/07/2025 [place] [address] EXAMINATION: [facility] PET/CT HISTORY: Reason for examination [...] PM Yaakov Frazier MD PET Final Result from Last 3 Months Insurance [facility] MEDICARE Advance Directives * Full Code (Latest Code Status on File) Date Activated Date Inactivated Comments 03/02/2025 11:26 PM 03/08/2025 2:08 PM * Full Code Date Activated Date Inactivated Comments 02/27/2019 4:44 PM 02/28/2019 1:51 PM Care Teams Labor Gang Supervisor Relationship Specialty Start Date End Date Sumit Suárez MD [address] [place] [phone] PCP - General FAMILY PRACTICE 04/09/21 Erika Newberry MD [address] [place] [address] Consulting Physician CARDIOVASCULAR DISEASE 12/01/24
--- OUTSIDE RECORDS SUMMARY | 2025-03-24 13:41 | XMS_ITS | Encounter Summary ---
Author Organization [facility] Address [facility] [place] [address] Care Team Providers Care Hazardous Materials Waste Technician Name Role Phone Sumit Suárez MD Primary Care Provider [phone] Jessica Wong MD Unavailable Encounter Details Date Type Department Care Team (Latest Contact Info) Description 03/23/2025 Travel Social History Tobacco Use Types Packs/Day [...] No 03/02/2025 Housing Stability Vital Sign Answer Jaimr e Recorded In the last 12 months, was t here a time when you were not able to pay the mortgage or rent on time? No 03/02/2025 In the past 12 months, how m any times have you moved where you were living? 0 03/02/2025 At any time in the past 12 m [facility], were you homeless or living in a nursing home (including now)? No 03/02/2025 [facility] Answer Date Recorded In the [...] Description 08/11/2025 9:45 AM CDT Office Visit [facility] [address] [phone] Jessica Wong MD [address] [place] [address] documented as of this encounter Visit Diagnoses Not on filedocumented in this encounter Care Teams Hazardous Materials Waste Technician Relationship Specialty Start Date End Date Sumit Suárez MD [address] [place] [phone] PCP - General FAMILY PRACTICE 04/09/21 Jessica Wong MD [address] [place] [address] Consulting Physician CARDIOVASCULAR DISEASE 12/01/24 documented as of this encounter
[2025-03-24] MEDS: PEMBROLIZUMAB 200 MG in SODIUM CHLORIDE 0.9% IV 100 ML IVPB (14:15)
[2025-03-24] MEDS: SODIUM CHLORIDE 0.9% IVPB ×2 (14:45→15:45)
[2025-03-24] MEDS: CISPLATIN IVPB (14:45)
[2025-03-24] MEDS: MANNITOL 20% IVPB (15:45)
[2025-03-24 18:00] VITALS: BP 112/59; PULSE 76; RESP 14; O2SAT 97
[2025-03-24] MEDS: HEPARIN SODIUM LOCK FLUSH 500 UNITS/5 ML SYRINGE IV PUSH (18:00)
== END 2025-03-24 12:57 | disposition home or self-care (01) ==
PROVIDERS: PCP Family Medicine; Visit Provider Internal Medicine Hematology & Oncology
DX: Z51.11 Encounter for antineoplastic chemotherapy (principal); C13.9 Malignant neoplasm of hypopharynx, unspecified
CPT/HCPCS: 96367; 96413; 96417; J2151; J3475; J3480; J7030; J7040; J9060; J9271

== ENCOUNTER 2025-04-13 09:46 | Outpatient (CLI) | payer MEDICARE, OTHER, SELFPAY ==
[2025-04-13 09:50] VITALS: BP 98/53; PULSE 62; RESP 14; TEMP 36.4; O2SAT 97; BMI 19.5
[2025-04-13 10:17] LABS: Hematocrit 34.2 % (37.0-46.0); Hemoglobin 11.3 g/dL (12.4-15.3); Immature Granulocyte Percent A 0.4 % (0.0-0.0); Lymphocytes Absolute Auto 0.64 K/mm3 (1.10-4.50); Mean Corpuscular HGB Conc 33.0 g/dL (32-36); Mean Corpuscular Hemoglobin 34.0 pg (27.0-31.0); Mean Corpuscular Volume 103.0 fL (78.0-102.0); Nucleated Red Blood Cells Absolute Auto 0.00 K/mm3 (0.00-0.00); Nucleated Red Blood Cells Perc 0.0 % (0-0.0); Platelet Count Result 134 K/mm3 (150-420); Red Blood Count 3.32 M/mm3 (4.70-6.10); White Blood Count 7.5 K/mm3 (4.8-10.8)
[2025-04-13] MEDS: SODIUM CHLORIDE 0.9% IV 500 ML IVPB (10:20)
[2025-04-13 10:30] LABS: Alanine Aminotransferase 42 U/L (6-50); Albumin Level 4.4 g/dL (3.5-5.1); Alkaline Phosphatase 64 U/L (38-126); Anion Gap 14 mmol/L (4-12); Aspartate Amino Transferase 38 U/L (17-59); Bilirubin,Total 0.3 mg/dL (0.2-1.3); Blood Urea Nitrogen 33 mg/dL (9-20); Calcium 9.6 mg/dL (8.4-10.2); Carbon Dioxide 24 mmol/L (22-30); Chloride 103 mmol/L (98-107); Estimated CRCL calculation 52 ml/min; Estimated Glomerular Filt Rate > 60; Glucose 145 mg/dL (65-110); Osmolality Calculated 302 mOsm/kg (285-295); Potassium 4.8 mmol/L (3.4-5.0); Sodium 141 mmol/L (137-145); Total Protein 6.9 g/dL (6.3-8.2)
[2025-04-13 11:00] LABS: Thyroid Stimulating Hormone 1.050 uIU/mL (0.465-4.680)
[2025-04-13] MEDS: HEPARIN SODIUM LOCK FLUSH 500 UNITS/5 ML SYRINGE (11:20)
[2025-04-13 11:30] VITALS: BP 100/59
--- NOTE | 2025-04-13 11:48 | PC.NURSE ---
Patient tolerated IV NS infusion well. SEE MAR/patient care notes.
== END 2025-04-13 09:47 | disposition home or self-care (01) ==
PROVIDERS: PCP Family Medicine; Visit Provider Internal Medicine Hematology
DX: C32.3 Malignant neoplasm of laryngeal cartilage (principal); E11.9 Type 2 diabetes mellitus without complications; I48.0 Paroxysmal atrial fibrillation; F17.210 Nicotine dependence, cigarettes, uncomplicated
CPT/HCPCS: 36415; 80053; 82533; 84443; 85025; 96360; J7040

== ENCOUNTER 2025-04-22 13:42 | Outpatient (CLI) | payer MEDICARE, OTHER, SELFPAY ==
[2025-04-22 14:03] VITALS: BP 92/59; PULSE 68; RESP 16; TEMP 37; O2SAT 97; BMI 19.6
[2025-04-22] MEDS: PEMBROLIZUMAB 200 MG in SODIUM CHLORIDE 0.9% IV 92 ML IVPB (14:15)
[2025-04-22] MEDS: HEPARIN SODIUM LOCK FLUSH 500 UNITS/5 ML SYRINGE IV PUSH (14:53)
[2025-04-22 14:57] VITALS: BP 100/57; PULSE 68; RESP 14; O2SAT 97
--- NOTE | 2025-04-22 14:58 | PC.NURSE ---
Patient tolerated Pembrolizumab infusion well See MAR/patient care notes.
== END 2025-04-22 13:43 | disposition home or self-care (01) ==
PROVIDERS: PCP Family Medicine; Visit Provider Internal Medicine Hematology & Oncology
DX: Z51.11 Encounter for antineoplastic chemotherapy (principal); C13.9 Malignant neoplasm of hypopharynx, unspecified
CPT/HCPCS: 96413; J9271